=== PATIENT | female | born 1950 | race Hispanic/Latino ===

== ENCOUNTER 2019-08-01 14:23 | Emergency (ER) | payer OTHER ==
[2019-08-01] MEDS ORDERED: HYDROCODONE/APAP 5/325 MG TAB ONE (14:51)
[2019-08-01] MEDS ORDERED: DIAZEPAM 2 MG TABLET ONE (14:51)
[2019-08-01 15:17] LABS: Urine Blood NEGATIVE (NEG); Urine Glucose NEGATIVE (NEG); Urine Protein NEGATIVE (NEG); Urine Specific Gravity 1.015 (1.005-1.030); Urine pH 7.5 (5.0-7.0)
[2019-08-01 15:40] LABS: Urine Bacteria <20 /HPF (<20); Urine RBC <5 /HPF (NONE SEEN)
[2019-08-01 15:41] LABS: Urine Culture Reflex Order NOT NEEDED
--- NOTE | 2019-08-01 15:54 | EDPHYS ---
Physician Documentation [facility] Name: Génesis Mota Age: 68 yrs Sex: Female : 1950 Arrival Date: 08/01/2019 Time: 14:24 Bed 19 Private MD: ED Physician Dada Ngo HPI: 08/01 14:56 This 68 yrs old Female presents to ER via Wheelchair with complaints of Back snw Pain. 14:56 The patient presents with pain that is acute, with no known mechanism of injury. The snw symptoms are located in the low back. Onset: The symptoms/episode began/occurred suddenly, last night. The pain does not radiate. Associated signs and symptoms: Pertinent positives: dysuria. The problem was sustained from unknown cause. Modifying factors: The patient symptoms are alleviated by remaining still, the patient symptoms are aggravated by any movement. Severity of symptoms: At their worst the symptoms were moderate. The patient has not experienced similar symptoms in the past. It is unknown whether or not the patient has recently seen a physician. Historical: - Allergies: 14:29 No Known Allergies; ch - Home Meds: 14:29 None [Active]; ch - PMHx: 14:29 None; ch - PSHx: 14:29 Hysterectomy; bladder reconstruction; ch - Immunization history:: Adult Immunizations up to date. - Social history:: Smoking status: Patient/guardian denies using tobacco. - Ebola Screening: : Patient negative for fever greater than or equal to 101.5 degrees Fahrenheit, and additional compatible Ebola Virus Disease symptoms Patient denies exposure to infectious person Patient denies travel to an Ebola-affected area in the 21 days before illness onset No symptoms or risks identified at this time. ROS: 14:55 Constitutional: Negative for fever, chills, and weight loss, Eyes: Negative for injury, snw pain, redness, and discharge, ENT: Negative for injury, pain, and discharge, Neck: Negative for injury, pain, and swelling, Cardiovascular: Negative for chest pain, palpitations, and edema, Respiratory: Negative for shortness of breath, cough, wheezing, and pleuritic chest pain, Abdomen/GI: Negative for abdominal pain, nausea, vomiting, diarrhea, and constipation, : Negative for injury, bleeding, discharge, and swelling, MS/Extremity: Negative for injury and deformity, Skin: Negative for injury, rash, and discoloration, Neuro: Negative for headache, weakness, numbness, tingling, and seizure, Psych: Negative for depression, anxiety, suicide ideation, homicidal ideation, and hallucinations. 14:55 Back: Positive for decreased range of motion, pain with movement, of the low back area. Exam: 14:55 Constitutional: This is a well developed, well nourished patient who is awake, alert, snw and in no acute distress. Head/Face: Normocephalic, atraumatic. Eyes: Pupils equal round and reactive to light, extra-ocular motions intact. Lids and lashes normal. Conjunctiva and sclera are non-icteric and not injected. Cornea within normal limits. Periorbital areas with no swelling, redness, or edema. ENT: Nares patent. No nasal discharge, no septal abnormalities noted. Tympanic membranes are normal and external auditory canals are clear. Oropharynx with no redness, swelling, or masses, exudates, or evidence of obstruction, uvula midline. Mucous membranes moist. Neck: Trachea midline, no thyromegaly or masses palpated, and no cervical lymphadenopathy. Supple, full range of motion without nuchal rigidity, or vertebral point tenderness. No Meningismus. Chest/axilla: Normal chest wall appearance and motion. Nontender with no deformity. No lesions are appreciated. 14:55 Respiratory: Lungs have equal breath sounds bilaterally, clear to auscultation and percussion. No rales, rhonchi or wheezes noted. No increased work of breathing, no retractions or nasal flaring. Abdomen/GI: Soft, non-tender, with normal bowel sounds. No distension or tympany. No guarding or rebound. No evidence of tenderness throughout. Back: No spinal tenderness. No costovertebral tenderness. Full range of motion. Skin: Warm, dry with normal turgor. Normal color with no rashes, no lesions, and no evidence of cellulitis. MS/ Extremity: Pulses equal, no cyanosis. Neurovascular intact. Full, normal range of motion. Neuro: Awake and alert, GCS 15, oriented to person, place, time, and situation. Cranial nerves II-XII grossly intact. Motor strength 5/5 in all extremities. Sensory grossly intact. Cerebellar exam normal. Normal gait. Psych: Awake, alert, with orientation to person, place and time. Behavior, mood, and affect are within normal limits. 14:55 Cardiovascular: Rate: bradycardic. Vital Signs: 14:29 BP 90 / 54; Pulse 54; Resp 14; Temp 98.2; Pulse Ox 99% on R/A; Weight 59.87 kg; Height 5 ft. 1 in. (154.94 cm); Pain 9/10; 15:47 BP 101 / 71; Pulse 51; Resp 16; Pulse Ox 96% ; sv 14:29 Body Mass Index 24.94 (59.87 kg, 154.94 cm) MDM: 14:40 Patient medically screened. snw 08/01 14:34 Order name: Urine Culture snw 08/01 14:34 Order name: Urine Microscopic Only; Complete Time: 15:49 snw 08/01 14:34 Order name: Urine Dipstick-Ancillary (obtain specimen); Complete Time: 14:50 snw 08/01 14:44 Order name: Urine Dipstick--Ancillary (enter results) gm Administered Medications: 14:55 Drug: Bard 5 mg-325 mg 1 tabs {Note: RASS0.} Route: PO; sv 15:48 Follow up: Response: No adverse reaction; Pain is decreased; RASS: Alert and Calm (0) sv 16:03 Not Given (Physician Discretion): Valium 2 mg PO once sv Disposition: 17:21 Co-signature as Attending Physician, Dada Ngo MD. Disposition: 08/01/19 15:52 Discharged to Home. Impression: Low back pain. - Condition is Stable. - Discharge Instructions: Back Pain, Adult, Musculoskeletal Pain, Back Exercises, [id number], Cryotherapy, Heat Therapy. - Prescriptions for orphenadrine citrate 100 mg Oral Tablet Sustained Release - take 1 tablet by ORAL route 2 times per day As needed; 20 tablet. - Medication Reconciliation Form, Thank You Letter, Antibiotic Education, Prescription Opioid Use form. - Follow up: Private Physician; When: 1 - 2 days; Reason: Recheck today's complaints, Continuance of care, Re-evaluation by your physician. Follow up: Emergency Department; When: As needed; Reason: Worsening of condition. Signatures: Dispatcher [employer] EDKirsty Smith RN RN Ernestina Fam RN RN Zunilda Paul, POSITIVE PRINTER OPERATOR-C POSITIVE PRINTER OPERATOR-Csnw Dada Ngo MD MD gs Corrections: (The following items were deleted from the chart) 14:55 14:34 Barnes ordered. snw sv 16:04 15:52 08/01/2019 15:52 Discharged to Home. Impression: Low back pain. Condition is sv Stable. Forms are Medication Reconciliation Form, Thank You Letter, Antibiotic Education, Prescription Opioid Use. Follow up: Private Physician; When: 1 - 2 days; Reason: Recheck today's complaints, Continuance of care, Re-evaluation by your physician. Follow up: Emergency Department; When: As needed; Reason: Worsening of condition. snw
--- NOTE | 2019-08-01 15:54 | ER ---
Nurse's Notes [facility] Name: Génesis Mota Age: 68 yrs Sex: Female : 1950 Arrival Date: 08/01/2019 Time: 14:24 Bed 19 Private MD: Diagnosis: Low back pain Presentation: 08/01 14:28 Presenting complaint: Child states: back pain since yesterday, blood in urine. [place]olan speaking only.. Transition of care: patient was not received from another setting of care. Onset of symptoms was July 31, 2019 at 10:00. Risk Assessment: Do you want to hurt yourself or someone else? Patient reports no desire to harm self or others. Initial Sepsis Screen: Does the patient meet any 2 criteria? No. Patient's initial sepsis screen is negative. Does the patient have a suspected source of infection? No. Patient's initial sepsis screen is negative. Care prior to arrival: None. 14:28 Method Of Arrival: Wheelchair 14:28 Acuity: LOU 3 Triage Assessment: 14:29 General: Appears in no apparent distress. uncomfortable, Behavior is cooperative. Pain: Complains of pain in low back area Pain currently is 9 out of 10 on a pain scale. Historical: - Allergies: 14:29 No Known Allergies; - Home Meds: 14:29 None [Active]; ch - PMHx: 14:29 None; ch - PSHx: 14:29 Hysterectomy; bladder reconstruction; ch - Immunization history:: Adult Immunizations up to date. - Social history:: Smoking status: Patient/guardian denies using tobacco. - Ebola Screening: : Patient negative for fever greater than or equal to 101.5 degrees Fahrenheit, and additional compatible Ebola Virus Disease symptoms Patient denies exposure to infectious person Patient denies travel to an Ebola-affected area in the 21 days before illness onset No symptoms or risks identified at this time. Screenin:35 Abuse screen: Denies threats or abuse. Denies injuries from another. Nutritional sv screening: No deficits noted. Tuberculosis screening: No symptoms or risk factors identified. Fall Risk None identified. Assessment: 14:45 General: Appears in no apparent distress. uncomfortable, well developed, Behavior is sv calm, cooperative, appropriate for age. Pain: Complains of pain in left low back Pain currently is 9 out of 10 on a pain scale. Neuro: Level of Consciousness is awake, alert, obeys commands, Oriented to person, place, time, situation, Gait is steady. Respiratory: Respiratory effort is even, unlabored, Respiratory pattern is regular, symmetrical. Derm: Skin is pink, warm \T\ dry. 16:04 Reassessment: Patient appears in no apparent distress at this time. Patient and/or sv family updated on plan of care and expected duration. Pain level reassessed. Patient is alert, oriented x 3, equal unlabored respirations, skin warm/dry/pink. Patient denies pain at this time. Patient states feeling better. Patient states symptoms have improved. Vital Signs: 14:29 BP 90 / 54; Pulse 54; Resp 14; Temp 98.2; Pulse Ox 99% on R/A; Weight 59.87 kg; Height ch 5 ft. 1 in. (154.94 cm); Pain 9/10; 15:47 BP 101 / 71; Pulse 51; Resp 16; Pulse Ox 96% ; sv 14:29 Body Mass Index 24.94 (59.87 kg, 154.94 cm) ED Course: 14:24 Patient arrived in ED. as 14:28 Triage completed. ch 14:29 Arm band placed on left wrist. Patient placed in an exam room, on a stretcher. ch 14:33 Ernestina Fam, PAMELA is Primary Nurse. sv 14:33 Zunilda Paul FNP-C is PHCP. snw 14:33 Dada Ngo MD is Attending Physician. snw 14:35 Patient has correct armband on for positive identification. sv 14:55 Awaiting lab results. sv 16:03 No provider procedures requiring assistance completed. Patient did not have IV access sv during this emergency room visit. Administered Medications: 14:55 Drug: [place] 5 mg-325 mg 1 tabs {Note: RASS0.} Route: PO; sv 15:48 Follow up: Response: No adverse reaction; Pain is decreased; RASS: Alert and Calm (0) sv 16:03 Not Given (Physician Discretion): Valium 2 mg PO once sv Outcome: 15:52 Discharge ordered by . snw 16:03 Discharged to home ambulatory, with family. sv 16:03 Condition: stable 16:03 Discharge instructions given to patient, Instructed on discharge instructions, follow up and referral plans. medication usage, Demonstrated understanding of instructions, follow-up care, medications, Prescriptions given X 1. 16:04 Patient left the ED. sv Signatures: Kirsty Clay, RN RN Ernestina Friedman RN RN Zunilda Ramos, PROPERTY PORTFOLIO OFFICER-C PROPERTY PORTFOLIO OFFICER-Csnw Francine Rushing as
[2019-08-01 17:19] VITALS: TEMP 98.2
[2019-08-01 17:20] VITALS: BP 101/71; O2SAT 96
== END 2019-08-01 16:04 | disposition home or self-care (01) ==
LOC: ER 14:23
DX: M54.5 Low back pain (principal)
CPT/HCPCS: 81003; 81015; 87086; 87088; 99283

== ENCOUNTER 2020-04-17 08:45 | Day surgery (SDC) | payer OTHER ==
[2020-04-16 15:42] LABS: Absolute Lymphocytes (CBC) 1.4 K/uL (0.7-4.9); Basophils % 0.8 % (0-1.3); Hematocrit 42.3 % (36.0-45.0); Lymphocytes % 24.4 % (15.3-44.8); MPV 7.4 fL (7.6-11.3); RBC Red Blood Cell Count 4.41 M/uL (3.86-4.86)
--- NOTE | 2020-04-16 15:59 | RAD REPORT ---
EXAM DESCRIPTION: RAD - Chest Pa And Lat (2 Views) - 04/16/2020 3:26 pm CLINICAL HISTORY: preop, pending right hand surgery for soft tissue infection COMPARISON: Portable March 2015 TECHNIQUE: Frontal and lateral views of the chest were obtained. FINDINGS: The lungs are clear of failure, infiltrate or mass. Interstitial pattern matches compariso n. Posterior right diaphragmatic hernia seen slightly enlarged from 2015. Heart size is normal and c entral vasculature is within normal limits. No pleural effusion or pneumothorax seen. No acute bony finding noted. No aortic abnormality. IMPRESSION: No acute cardiopulmonary process. Patient has known posterior right diaphragmatic hernia has enlarged slightly.
[2020-04-16 16:02] LABS: Potassium 4.6 mmol/L (3.5-5.1)
--- NOTE | 2020-04-17 06:49 | EKG ---
Test Date: 2020-04-16 Test Time: 15:08:55 [employer] C[employer] Manager: CAMILO MEASUREMENT RESULTS: Intervals: Rate: 48 WI: 114 QRSD: 72 QT: 452 QTc: 403 [place]: P: -23 WI: 114 QRS: 33 T: 30 INTERPRETIVE STATEMENTS: Sinus bradycardia Otherwise normal ECG Compared to ECG 03/29/2015 18:59:56 No significant changes Electronically Signed On 04-17-20 06:48:00 CDT by Nikhil Addison
[2020-04-17] MEDS ORDERED: Ringers Lactate 1,000 ML IV ONE (09:00)
[2020-04-17] MEDS: CEFAZOLIN/SWI 1gm 1 GM/10 ML SYR ONE ×3 (09:30→10:36)
--- OUTSIDE RECORDS SUMMARY | 2020-04-17 09:43 | XMS REPORT | Continuity of Care Document ---
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 conditions.<b r/>
Patie nts with extremes in muscle mass or diet.

The data above are obtained from the National Kid[employer] Disease Education Program (NKDEP) which additionally recommends that when the eGFR is used in patients with extremes of body mass index for purposes of drug dosing, the eGFR should be multiplied by the estimated BMI. CHEM PANEL AGAP 9.7 10.0 - 08 [place] 20.0 [facility] CHEM PANEL Magnesium Lvl 2.3 1.8 - 2.4 05/31 [facility] CHEM PANEL Phosphorus 3.5 2.5 - 4.5 05/31 [facility] HEMATOLOGY Eosinophils # 0.6 0.0 - 0.5 05/31 [facility] HEMATOLOGY Eosinophils 8.7 0.0 - 4.0 08 [facility] HEMATOLOGY Lymphocytes 17.7 20.0 - 08 [place] 40.0 [facility] HEMATOLOGY Segs 65.0 45.0 - 08/ [place] 75.0 [facility] HEMATOLOGY Monocytes 8.4 2.0 - 12.0 05/31 [facility] HEMATOLOGY Lymphocytes # 1.1 1.0 - 5.5 05/31 [facility] HEMATOLOGY Segs-Bands # 4.2 1.5 - 8.1 05/31 [facility] HEMATOLOGY Basophils 0.2 0.0 - 1.0 08 [facility] HEMATOLOGY Monocytes # 0.5 0.0 - 0.8 05/31 [facility] HEMATOLOGY RDW 14.5 11.5 - 08/ 14.5 [facility] HEMATOLOGY MCHC 34.1 32.0 - 08/09 [place] 36.0 [facility] HEMATOLOGY Hct 27.8 36.0 - 08/09 [place] 48.0 /2015 [facility] HEMATOLOGY MCH 31.7 27.0 - 08/09 [place] 31.0 [facility] HEMATOLOGY MCV 93.1 80.0 - 08/09 [facility] 98.0 /2015 [facility] HEMATOLOGY Platelet 410 133 - 450 08/ /2015 [facility] HEMATOLOGY MPV 6.9 7.4 - 10.4 08/ /2015 [facility] HEMATOLOGY RBC 2.99 4.20 - 08/09 [place] 5.40 /2015 [facility] HEMATOLOGY Hgb 9.5 12.0 - 08/09 [place] 16.0 /2015 [facility] HEMATOLOGY WBC 6.5 3.7 - 10.4 08/ [facility] PARATHYROID Ca Ion WB 1.13 1.05 - 08 [place] PROFILE 1. [facility] PARATHYROID Ca Norm WB 1.10 1.05 - 05/30 [place] PROFILE 1. [facility] PARATHYROID Ca Ion WB 1.04 1.05 - 05/26 [place] PROFILE 11.16 [facility] PARATHYROID Ca Norm WB 1.05 1.05 - 05/26 [facility] PROFILE 11.16 [facility] BLOOD BANK ABO/Rh O POS 05/25 [facility] RESULTS [facility] BLOOD BANK Antibody Scrn Negative 05/25 [facility] as RESULTS (05/25/16 4:39 PM) [facility] HEMATOLOGY PTT 29.5 22.9 - 08 [place] 35.8 /2015 [facility] HEMATOLOGY PT 13.6 12.0 - 08 [place] 14.7 /2015 [facility] HEMATOLOGY INR 1.01 0.85 - 08 [place] 1. [facility] PARATHYROID Ca Ion WB 1.07 1.05 - 05/25 [place] PROFILE 11.16 [facility] PARATHYROID Ca Norm WB 1.07 1.05 - 05/25 [place] PROFILE 11.16 [facility] DRUG SCREEN U Mehnaz Scr Negative Negative 05[place]23 [place] *[place]* /2015 [facility] (05/22/16 9:00 PM) Center DRUG SCREEN U Amph [place]r Negative Negative 05[place] *NA* [facility] (05/22/16 9:00 PM) Center DRUG SCREEN [place] Opiate [place]r Positive Negative 05/23 [place] *ABN* [facility] (05/22/16 9:00 PM) Center DRUG SCREEN U Cannab [place] Negative Negative 05/23 [place] *NA[place] [facility] (05/22/16 9:00 PM) Center DRUG SCREEN U Cocaine Scr Negative Negative 05/23 [place] *NA* [facility] (05/22/16 9:00 PM) Center DRUG SCREEN U Benzodia Negative Negative [place]/23 [place] *NA [facility] (05/22/16 9:00 PM) Center DRUG SCREEN U Phencyc Scr Negative Negative 05/23 [place] *NA* [facility] (05/22/16 9:00 PM) Center DRUG SCREEN UDS Note See Note 05/23 [facility] (05/22/16 9:00 PM) [facility] URINE AND UA <=1.0 0.1 - 1.0 05/23 [facility] Urobilinogen mg/dL /2015 [facility] URINE AND UA Bacteria Occasional None Seen 05/23 [place] /HPF /HPF /2015 [facility] URINE AND UA WBC 7 0 - 5 05/23 [facility] URINE AND UA Leuk Est Large Negative 05/23 [facility] *ABN* [facility] (05/22/16 9:00 PM) [place] URINE AND UA Nitrite Negative Negative 05/23 [facility] (05/22/16 9:00 PM) [facility] URINE AND UA Mucus Few /LPF None Seen 05/23 [facility] STOOL /LPF /2015 [facility] URINE AND UA Sq Epi None Seen 05/23 [facility] URINE AND UA Bili Negative Negative 05/23 [facility] *NA* [facility] (05/22/16 9:00 PM) [place] URINE AND UA Ketones Negative Negative 05/23 [facility] mg/dL mg/dL [facility] URINE AND UA Protein Negative Negative 05/23 [facility] mg/dL mg/dL [facility] URINE AND UA Glucose Negative Negative 05/23 [facility] mg/dL mg/dL [facility] URINE AND UA Turbidity Clear Clear 05/23 [facility] (05/22/16 9:00 PM) [facility] URINE AND UA Color Light Yellow Yellow 05/23 [facility] STOOL *NA* [facility] (05/22/16 9:00 PM) [place] URINE AND UA Blood Negative Negative 05/23 [facility] (05/22/16 9:00 PM) [facility] URINE AND UA Spec Grav 1.013 <=1.030 05/23 [facility] 2016 [facility] Center URINE AND UA pH 8.0 5.0 - 8.0 05/23 [place] STOOL /2015 [facility] Center CARDIAC CK MB 15.1 0.5 - 3.6 05/22 [place] ENZYMES /2015 [facility] Center CARDIAC CK MB Index 0.6 0.0 - 2.5 05/22 [place] ENZYMES /2015 [facility] Center CARDIAC Total CK 2667 - 05/22 [place] ENZYMES /2015 [facility] CARDIAC Troponin-T <0.010 0.000 - 05/22 [place] ENZYMES 0.100 [facility] Center CARDIAC Troponin-I <0.02 0.00 - 05/22 [place] ENZYMES 0.40 [facility] Center CARDIAC CK MB Index 0.8 0.0 - 2.5 05/22 [place] ENZYMES /2015 [facility] Center CARDIAC CK MB 21.5 0.5 - 3.6 05/22 [place] ENZYMES /2015 Medical Center CARDIAC Troponin-T <0.010 0.000 - 05/22 [place] ENZYMES 0.100 [facility] [place] 2657 05/22 [place] ENZYMES /2015 [facility] Center CARDIAC Troponin-I <0.02 0.00 - 05/22 [place] ENZYMES 0.40 [facility] Center CHEM PANEL Lactic Acid 1.0 0.5 - 2.2 05/22 [place] L[place] /2015 [facility] Center HEMATOLOGY PTT 28.6 22.9 - 05/22 [place] 35.8 /2015 [facility] HEMATOLOGY INR 1.05 0.85 - 05/22 [place] 1. [facility] HEMATOLOGY PT 14.0 12.0 - 05/22 [place] 14. [facility] BLOOD BANK Antibody Scrn Negative 05/21 [place] RESULTS (05/21/16 5:15 PM) /2015 [facility] BLOOD BANK ABO/Rh O POS 05/21 [place] RESULTS /2015 [facility] Center CARDIAC Troponin-I <0.02 0.00 - 05/21 [place] ENZYMES 0.40 [facility] CHEM PANEL Lactic Acid 2.4 0.5 - 2.2 05/21 [place] L[place] /2015 [facility] HEMATOLOGY PT 13.0 12.0 - 05/21 [place] 14.7 /2015 [facility] HEMATOLOGY INR 0.95 0.85 - 05/21 [place] 1.17 [facility] [place] HEMATOLOGY PTT 25.3 22.9 - 05/21 [facility] 35.8 [facility] TOXICOLOGY Ethanol Lvl <3 05/21 [facility] TOXICOLOGY Etoh (%) <0.003 05/21 [facility] HEMATOLOGY Estimated % 1.7 0.0 - 7.5 05/[place] [facility] HEMATOLOGY Angle Rapid 77 64 - 80 05/21 [facility] HEMATOLOGY G-value Rapid 12.2 5.0 - 11.6 05/21 [place] [facility] HEMATOLOGY Max Amplitude 71 52 - 71 05/21 [place] [facility] HEMATOLOGY R-time Rapid 0.7 0.4 - 0.7 05/21 [place] [facility] HEMATOLOGY [place] 0.5 05/21 [facility] HEMATOLOGY ACT (TEG) 113 86 - 118 05/21 [facility] HEMATOLOGY K-time Rapid 0.9 0.6 - 2.3 05/21 [place] [facility] Pathology Reports No Data Provided for This Section Diagnostic Reports Report Value Date Source Spine lumbar 2 or 3 EXAM: XR LUMBAR SPINE 2 VIEWS 08/16/2016 HIEN RUIZ [facility] views DX DATE: 08/16/2016 at 1334 hours INDICATION: Compression frac ture of L1 lumbar vertebra with routine healing/Compression fracture of L3 lumbar vertebra COMPARISON: CT abdomen/pelvis of 05/21/2016 TECHNIQUE: AP and lateral radiographs of the lum bar spine FINDINGS: 5 lumbar type, non -rib bearing vertebral bodies are present. L1 and L3 vertebral body compression fractures are again identified, with approximately 15% anterior vertebral body height loss at both levels, with vertebral body heights slightly decreased from the prior CT examination. Intervertebral disc spaces a re overall preserved. Lower lumbar spine facet hypertrophy and multilevel interspinous narrowing are unchanged. Anterior coils are again identified at L5-S1. IMPRESSION: Slight interval decrease in height at the L1 and L3 compression fractures, with up to approximately 15% anterior vertebral body height loss. Hand 3 views DX EXAM: XR HAND 3 VIEWS 07/19/2016 JOSEPH Zavaleta rmann DATE: 07/19/2016 1:49 PM CDT INDICATION: 5th MC fx- LEFT hand COMPARISON: Left hand series 05/21/2016 TECHNIQUE: PA, lateral and oblique radiographs of the hand Laterality: Left FINDINGS: There is generaliz ed diminished bone mineral density. Satisfactory alignment of fifth metacarpal neck fracture post crossing K wire fixation. Minimal residual displacement of the fracture with minimal bridging bone forma tion. No hardware complication. Medial hand soft tissue swelling. IMPRESSION: Satisfactory alignment of sa dion fixated fifth metacarpal neck fracture with minimal bridging bone formation. Chest 1view DX EXAM: XR CHEST 1 VIEW 06/02/2016 [facility] DATE: 06/02/2016 Center INDICATION: Abnormal chest sounds . Comparison is made with yesterday FINDINGS: Cardiomediastinal silhouette and bilateral pleural effusions are unchanged. There are bilateral retrocardiac opacities obscuring the hemidiaphragms and silhouette of the descending thoracic ao rta which may represent bila teral pleural effusions with or without underlying atelectasis or consolidation of both lower lobes. .. The remaining lungs are clear. There is a nondisplaced fracture of the right an terior 1st rib. No pneumothorax is visualize d however a supine or semierect radiograph is suboptimal for that determination. An erect film of the chest is necessary in order to exclude small pneumothoraces. IMPRESSION: No significant interval change when compared to prior radiograph. Chest 1view DX EXAM: XR CHEST 1 VIEW 06/01/2016 [facility] DATE: 06/01/2016 3:00 AM CDT [facility] er INDICATION: Abnormal chest sounds COMPARISON: Chest radiograph 05/31/2016 TECHNIQUE: AP chest FINDINGS: Lines, tubes and hardware: None. Lungs and pleura: The costop hrenic sulci are obscured bilaterally with compression atelectasis of related lung segments. The upper lung zones are clear bilaterally. No pneumothorax is identified. Heart and mediastinum: The h eart size is normal for technique. The mediastinal contours are stable. Bones: No acute bony abnormality is identified. IMPRESSION: 1. Bilateral pleural effusio ns with compression atelectasis of the related lung segments, not significantly changed compared to prior study. Chest 1view DX EXAM: XR CHEST 1 VIEW 05/31/2016 [facility] DATE: 05/31/2016 Center INDICATION: Abnormal chest sounds . Comparison is made with yesterday FINDINGS: Cardiomediastinal silhouette is stable. There are bilateral pleural effusions. These effusions obscure the costophrenic sulci both diaphragms in both lower lobes. The remainder of the visualized lungs are clear IMPRESSION: No significant interval change when compared to prior radiograph. Chest 1view DX EXAM: XR CHEST 1 VIEW 05/30/2016 [facility] DATE: 05/30/2016 Center INDICATION: Abnormal chest sounds . Comparison is made with yesterday FINDINGS: Cardiomediastinal silhouette and bilateral pleural effusions are unchanged. There are bilateral retrocardiac opacities obscuring the hemidiaphragms and silhouette of the descending thoracic ao rta which may represent bila teral pleural effusions with or without underlying atelectasis or consolidation of both lower lobes. .. The upper lungs are clear IMPRESSION: No significant interval change when compared to prior radiograph. Chest 1view DX EXAM: XR CHEST 1 VIEW 05/29/2016 [facility] DATE: 05/29/2016 3:00 AM CDT Cente r INDICATION: Abnormal chest sounds. FINDINGS: Comparison is made to yesterday aftern oon. The cardiomediastinal silhou ette is stable. Bilateral pleural effusions obscure the lung bases, greater on the right with fluid layering posteriorly. There are bilateral retrocardiac opacities which may be due to layering pleural effusion and/or airspace opacities such as pneumonia or atelectasis. IMPRESSION: 1. Bilateral pleural effusio ns obscure the lung bases, greater on the right with fluid layering posteriorly. 2. There are bilateral retro cardiac opacities which may be due to layering pleural effusion and/or airspace opacities such as pneumonia or atelectasis. Chest 1view DX EXAM: XR CHEST 1 VIEW 05/28/2016 [facility] DATE: 05/28/2016 3:00 AM CDT Cente r INDICATION: Abnormal chest sounds. FINDINGS: Comparison is made to yesterday. The cardiomediastinal silhou ette is stable. Bilateral pleural effusions obscure the lung bases. There are bilateral retrocardiac opacities which may be due to layering pleural effusion and/or airspace opacities such as pneumonia or atelectasis. IMPRESSION: No significant change. Chest 1view DX EXAM: XR CHEST 1 VIEW 05/27/2016 [facility] DATE: 05/27/2016 3:00 AM CDT Cente r INDICATION: Abnormal chest sounds. FINDINGS: Comparison is made to 64. The cardiomediastinal silhou ette is stable. Bilateral pleural effusions obscure the lung bases with fluid layering posteriorly on the right. There are bilateral retrocardiac opacities which may be due t o layering pleural effusion and/or airspace opacities such as pneumonia or atelectasis. IMPRESSION: No significant change. Chest 1view DX EXAM: XR CHEST 1 VIEW 05/26/2016 [facility] DATE: 05/26/2016 Center INDICATION: Abnormal chest sounds . Comparison is made with yesterday FINDINGS: Cardiomediastinal silhouette is stable. Bilateral pleural effusions are unchanged. There are bilateral retrocardiac opacities obscuring the hemidiaphragms and silhouette of the descending thor acic aorta which may represe nt bilateral pleural effusions with or without underlying atelectasis or consolidation of both lower lobes. .. The upper lungs are clear No pneumothorax is visualize d however a supine or semierect radiograph is suboptimal for that determination. An erect film of the chest is necessary in order to exclude small pneumothoraces. IMPRESSION: No significant interval change when compared to prior radiograph. Chest 1view DX EXAM: XR CHEST 1 VIEW 05/25/2016 [facility] DATE: 05/25/2016 3:00 AM CDT Cente r INDICATION: Abnormal chest sounds. FINDINGS: Comparison is made to yesterday. The cardiomediastinal silhou ette is stable. Bilateral pleural effusions are the lung bases and layer posteriorly. There are bilateral retrocardiac opacities which may be due to layering pleural effusion and/or airspace opacities s uch as pneumonia or atelectasis. The upper lungs are clear. IMPRESSION: No significant change from yesterday morning. Chest 1view DX EXAM: XR CHEST 1 VIEW 05/24/2016 [facility] DATE: 05/24/2016 Center INDICATION: Abnormal chest sounds . Comparison is made with yesterday FINDINGS: Cardiomediastinal silhouette is stable. Bilateral pleural effusions are unchanged. There are bilateral retrocardiac opacities obscuring the hemidiaphragms and silhouette of the descending thor acic aorta which may represe nt bilateral pleural effusions with or without underlying atelectasis or consolidation of both lower lobes. .. The upper lungs are clear IMPRESSION: No significant interval change when compared to prior radiograph. Chest 1view DX EXAM: XR CHEST 1 VIEW 05/23/2016 [facility] DATE: 05/23/2016 7:10 AM CDT Cente r INDICATION: Abnormal chest sounds COMPARISON: 05/22/2016 FINDINGS: The cardiomediastinal silhou ette is stable. While evaluation is limited given semi-erect positioning, no distinct pneumothorax is identified. Opacities are present in the lung bases and retrocardiac reg ions partially obscuring the hemidiaphragms which could represent a combination of layering pleural fluid with or without associated atelectasis and/or pneumonia. IMPRESSION: Bibasilar pleural-parenchyma l opacities remain suggesting moderate pleural effusions with subsegmental atelectasis and/or pneumonia not excluded. Chest Pulmonary EXAM: CTA CHEST WITH CONTRAST 05/22/2016 [facility] [place] [facility]A DATE: 05/22/2016 12:[address] INDICATION: Arrhythmias COMPARISON: Chest CT dated 05/21/2016. TECHNIQUE: Volumetric CT acq uisition of the chest, during pulmonary arterial phase, after intravenous contrast. Axial, sagittal, coronal, and oblique MIP reconstructions are created at the acquisition workstation. IV Contrast: 76 mL of Omnipaque 350 DLP: 634 mGy-cm FINDINGS: Lines and tubes: None Lower neck: The visualized p ortion of the thyroid gland and lower neck are unremarkable. Heart and Mediastinum: Cardi othoracic ratio measures 11/22. Measurements and appearance of the thoracic aorta are normal. At the same level where the ascending aorta measures 2.9 cm the pulmonary trunk measures 2.3 cm. No coronary calcifications. Minimal aortic atherosclerotic disease. There is no pulmonary embolus. Pleura: Small bilateral pleu ral effusions. Small right pneumothorax which is decreased compared to prior study. Lymph Nodes: There is no hil ar, mediastinal, axillary or internal mammary lymphadenopathy. Lungs: Interval progression of the consolidative changes of both lower lobes showing heterogenous enhancement indicating the presence of atelectatic portion and consolidative changes which may be due to pneumonia or aspiration pne umonitis. Scattered atelectatic changes seen in both upper lobes. Trachea: Markedly diminished AP diameter of the trachea at the ad which may be due to tracheomalacia. Upper abdomen: The visualized portion of the upp er abdomen is unremarkable. Bones and soft tissues: Dege nerative changes of the thoracic spine. Healing fracture of the sternal body. IMPRESSION: 1. No pulmonary embolism. 2. Interval progression in t he consolidative changes seen in both lower lobes raising the possibility of pneumonia or aspiration pneumonitis superimposed on the previously noted atelectatic changes. 3. Interval decrease in the size of the right pn eumothorax. 4. Scattered atelectatic changes in both upper l obes. 5. Nondisplaced fracture of the sternal body aga in seen. RECOMMENDATIONS: None. Chest 1view DX EXAM: XR CHEST 1 VIEW 05/22/2016 [facility] DATE: 05/22/2016 9:21 AM CDT [facility] er INDICATION: Arrhythmias COMPARISON: 05/22/2016 at 0229 hours TECHNIQUE: AP chest IMPRESSION: 1. Redemonstration of the bi lateral lower lung zones consolidative/atelectatic changes with diminished lung volumes bilaterally may be due to infection or aspiration. 2. Diffuse haziness of both lungs which may be d ue to pulmonary edema. 3. Cardiac mediastinal silhouette is enlargement , unchanged. 4. No acute osseous abnormalities. Chest 1view DX EXAM: XR CHEST 1 VIEW 05/22/2016 [facility] DATE: 05/22/2016 3:00 AM CDT [facility] er INDICATION: Abnormal chest sounds COMPARISON: Chest radiograph 04/21/2016 TECHNIQUE: AP chest FINDINGS: Again noted are bilateral mi d and lower lung airspace opacities which are unchanged from the comparison. The right pneumothorax is better visualized on the comparison CT study and is not well appreciate d on this radiograph. Cardio mediastinal silhouette, bones and soft tissues are unchanged. IMPRESSION: No significant interval change. Patella 2 views DX EXAM: XR LEFT PATELLA 1 VIEW 05/21/2016 [facility] [facility] DATE: 05/21/2016 6:55 PM CDT [facility] er INDICATION: Fracture COMPARISON: X-ray left knee 3 views 05/21/2016 at 1650 hours TECHNIQUE: Lateral view of the patella FINDINGS: Again seen is a ho rizontal fracture of the left patella, with surrounding soft tissue swelling and lipohemarthrosis of the left knee. There is interval placement of immobilizer extending from the lower femur to the mid tibia. IMPRESSION: 1. Horizontal fracture of t he left patella with surrounding soft tissue swelling and lipohemarthrosis of the left knee. 2. Interval placement of an immobilizer. Chest 1view DX EXAM: XR CHEST 1 VIEW 05/21/2016 [facility] DATE: 05/21/2016 10:[address] INDICATION: Abnormal chest sounds COMPARISON: CT of the chest abdomen pelvis dated May 21, 2016 at 1635 hours TECHNIQUE: AP chest FINDINGS: There is hazy opac ity of the right lung base and right hilum, suggestive of pulmonary contusions and/or atelectasis. In addition there is a left retrocardiac opacity which opacifies the left h emidiaphragm and descending thoracic aorta, that may represent singly or in combination pleural effusion, atelectasis and or consolidation. There is blunting of the bilateral costophrenic sulci by pleur al effusions. No change in t he right small pneumothorax. The cardiac silhouette is within normal limits. No displaced rib fractures are seen. IMPRESSION: 1. Hazy opacity at the righ t lung base and right hilum, suggestive of contusions and/or atelectasis. 2. Left retrocardiac opacit y may represent singly or in combination pleural effusion, atelectasis and/or consolidation. 3. No change in the small right pneumothorax. 4. Small bilateral pleural effusions. Hand 3 views DX EXAM: XR RIGHT HAND 3 VIEWS 05/21/2016 [facility] DATE: 05/21/2016 at [address] INDICATION: Pain, Trauma COMPARISON: None TECHNIQUE: PA, lateral and oblique radiographs of the hand FINDINGS: No acute fracture or malalignment is identified. No soft tissue abnormality is identified. IMPRESSION: No acute abnormality. Knee series 3 views EXAM: XR LEFT KNEE 3 VIEWS 05/21/2016 [facility] DATE: 05/21/2016 4:15 PM CDT Cent er INDICATION: Pain and swelling COMPARISON: None. TECHNIQUE: 3 views of the knee FINDINGS: There is a transv erse fracture of the patella, with superior and inferior displacement of the superior and inferior fragments, respectively. A few bone fragments are identified surrounding th e the inferior fragment. There is a lipohemarthr osis of the left knee. The distal femur, proximal tibia and fibula are intact. IMPRESSION: Horizontal, comminuted fract ure of the left patella, with superior and inferior displacement of the superior and inferior fragments, respectively. Lipohemarthrosis the left knee. Hand 3 views DX EXAM: XR LEFT HAND 3 VIEWS 05/21/2016 [facility] DATE: 05/21/2016 4:14 PM CDT [facility] er INDICATION: Pain and swelling COMPARISON: TECHNIQUE: PA, lateral and oblique radiographs of the hand FINDINGS: There is a minimal ly displaced, transverse fracture through the distal diaphysis of the 5th metacarpal. The ulnar stylet process is well- corticated, but separate from the distal ulna, likely sequelae of prior, old fracture. There is mild soft tissue swelling of the hypoth enar eminence. IMPRESSION: 1. Minimally displaced, transverse fracture thr ough the 5th metacarpal neck. 2. Soft tissue swelling of the hypothenar emine nce. Chest 1view DX EXAM: XR CHEST 1 VIEW 05/21/2016 [facility] DATE: 05/21/2016 4:07 PM T [facility] er INDICATION: Chest pain COMPARISON: None TECHNIQUE: AP chest FINDINGS: Lines and tubes: None. Lungs and pleura: Lung volum es are low with crowding of bronchovascular markings, particularly inferiorly. There is a small linear gas collection above the right hemidiaphragm, likely representing a pne umothorax.No other pulmonary or pleural based ab normality is identified. Heart and mediastinum: Unremarkable. Chest wall: Unremarkable. Bones: No acute bony abnormality is identified. IMPRESSION: 1. Findings concerning for a small right pneumot horax. 2. Low lung volumes with crowding of bronchovasc ular markings. Findings image reviewed in person with Crow Cm and Curtis Cobian. Spine cervical wo EXAM: CT CERVICAL SPINE WITHOUT CONTRAST 05/21 [facility] contrast CT DATE: 05/21/2016 4:14 PM T [facility] er INDICATION: Pain Post Trauma COMPARISON: None TECHNIQUE: Volumetric CT ac quisition of the cervical spine without contrast. Axial, sagittal and coronal reconstructions. IV contrast: None. DLP: 434 mGy-cm FINDINGS: The spine is image d from the skull base to the level of T3. Cervical spine alignment and vertebral body heights are maintained. No acute fracture or malalig nment is identified. No soft tissue abnormality is identified. Nondisplaced fracture of the right first rib, wi th small apical pneumothorax. IMPRESSION: 1. No acute abnormality of the cervical spine. 2. Nondisplaced right 1st rib fracture with sma ll right apical pneumothorax. Findings were conveyed to an d acknowledged by Dr. Cm over the phone on 05/21/2016 at 1700 hours. Chest/Abdomen/Pelvis EXAM: CT CHEST WITH CONTRAST 05/21/2016 [facility] IV contrast CT EXAM: CT ABDOMEN AND PELVIS WITH CONTRAST Center DATE: 05/21/2016 4:14 PM CDT INDICATION: Pain Post Trauma COMPARISON: None. TECHNIQUE: Volumetric acquis ition of the chest, abdomen and pelvis following intravenous administration of contrast. Delayed imaging was then performed through the abdomen and pelvis, using a radiation reduction technique. Axial, coronal and sagittal reformats. IV contrast: 100 mL of Visipaque 320 Oral contrast: None. DLP: 1260.91, 873.07 and 396 .14 mGy-cm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
[2020-04-17] MEDS ORDERED: propofoL 200 MG/20 ML VIAL IV ONE (10:04)
[2020-04-17] MEDS ORDERED: FENTANYL CITR 100 MCG/2 ML ONE (10:04)
[2020-04-17] MEDS ORDERED: KETOROLAC 30 MG/ML INJ ONE (10:04)
[2020-04-17] MEDS ORDERED: LIDOCAINE 2% MPF 5 ML VIAL ONE (10:04)
[2020-04-17] MEDS ORDERED: MIDAZOLAM HCL 2 MG/2 ML INJ ONE (10:04)
[2020-04-17] MEDS ORDERED: EPHEDRINE SULF 50 MG/ML VIAL ONE (10:44)
[2020-04-17] MEDS ORDERED: ONDANSETRON 4 MG/2 ML VIAL ONE (11:26)
[2020-04-17 11:34] VITALS: O2SAT 99
[2020-04-17 11:45] VITALS: TEMP 97.3
[2020-04-17 12:37] VITALS: BP 130/79
--- NOTE | 2020-04-17 22:46 | OP ---
Date of Procedure: 04/17/2020 Surgeon: Garfield Edwards MD Preoperative Diagnosis: Nonhealing wound, right hand palmar side. Postoperative Diagnosis: Nonhealing wound, right hand palmar side. Procedure: Excisional debridement, right hand 3 x 2 cm to full thickness with application of TheraSk in graft. Estimated Blood Loss: Minimal. Specimen: Debridement tissue. Findings: As above. Anesthesia: General. Complications: None. Disposition: Patient tolerated the procedure in stable condition and taken to recovery in good gener al condition. Description Of Procedure: Patient was brought to the OR and placed in supine position. General anes thesia was begun. Then, patient was prepped and draped in usual sterile fashion. Marcaine 0.5% was infiltrated locally and a 15-blade was used to excise the hypertrophic wound all the way down ___ full thickness, part of it was in the subcutaneous tissue and the debrided tissue was sent to [facility]. The wound was irrigated and bleeding was controlled with cautery. Then TheraSkin cut to gretchen ropriate size and placed over the wound 2 x 3 cm and then secured with 3-0 chromic interrupted suture s around the edges and then Mepitel, hydrogel and foam placed over the wound and sterile dressing gretchen lied. Patient was awakened and taken to Recovery in good general condition. Discharge Note: Patient will go to day surgery and home when stable. Disposition: Home. Condition: Stable. Discharge Instructions: Resume home medications and diet. Activity as tolerated. No heavy lifting. Keep dressing clean and dry. Do not change dressing. [facility] [place]. Call for appointment. Tylenol No.3 one tablet p.o. q.4 p.r.n. pain. /MODL Voice ID: [id number] Report ID: [id number]
== END 2020-04-17 12:45 | disposition home or self-care (01) ==
LOC: OR 08:45
PROVIDERS: ATTEND Surgery
PROC: 0HR Skin and Breast, Replacement (ICD-10-PCS; principal; 2020-04-17 10:00)
DX: I96 Gangrene, not elsewhere classified (principal); L98.492 Non-pressure chronic ulcer of skin of other sites with fat layer exposed; L03.113 Cellulitis of right upper limb; Z11.59 Encounter for screening for other viral diseases; J98.4 Other disorders of lung; K44.9 Diaphragmatic hernia without obstruction or gangrene; R00.1 Bradycardia, unspecified
CPT/HCPCS: 15275; 93005; 85025; 80048; 36415; 88312; 88305; 71046; U0002; J2704; J2250; J3010; J0690; J7120; J2405; Q4121

== ENCOUNTER 2021-03-28 00:05 | Emergency (ER) | payer OTHER ==
--- OUTSIDE RECORDS SUMMARY | 2021-03-28 00:11 | XMS REPORT | Continuity of Care Document ---
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 13:30:00 23:59:00 Christopher 1.018970. [id number] 12 Karin 3.615.62 5.62 2018-01-26 2018-02-24 Outpatient Gackle, 2.16.840. 2.16.840. 1. [id number] 10:30:00 23:59:00 Christopher [id number]. [id number] 11 Karin 3.615.62 5.62 2017-11-27 2017-12-26 Outpatient Gackle, 2.16.840. 2.16.840. 1. [id number] 13:53:00 23:59:00 Christopher [id number]. [id number] 10 Karin 3.615.62 5.62 2017-11-27 2017-12-26 Outpatient Gackle, 2.16.840. 2.16.840. 1. [id number] 13:53:00 23:59:00 Christopher 1.204988. [id number] 10 Karin 3.615.62 5.62 2017-10-26 2017-11-24 Outpatient Gackle, 2.16.840. 2.16.840. 1. [id number] 11:00:00 23:59:00 Christopher 1.227537. [id number] 09 Karin 3.615.62 5.62 2017-09-21 2017-10-20 Outpatient Gackle, 2.16.840. 2.16.840. 1. [id number] 11:00:00 23:59:00 Christopher 1.199320. [id number] 08 Karin 3.615.62 5.62 2017-08-22 2017-09-20 Outpatient Gackle, 2.16.840. 2.16.840. 1. [id number] 11:00:00 23:59:00 Christopher [id number]. [id number] 07 Karin 3.615.62 5.62 2017-05-03 2017-08-22 [place]patient [place] [id number] 08:00:00 23:59:00 Christopher 03 Karin 2017-08-17 2017-08-17 [place]patient [place] [id number] 06:00:00 23:59:00 Christopher 01 Karin 2017-04-03 2017-05-02 [place] [id number] 13:55:00 23:59:00 Christopher 02 Karin 2017-03-06 2017-04-04 Outpatient Jarrell 2.16.840. 2.16.840. 1. [id number] 08:00:00 23:59:00 Sylvia archuleta 1.773866. [id number] 06 3.615.51 5.51 2017-03-02 2017-03-31 [facility] [id number] 13:00:00 23:59:00 Christopher 01 Karin 2017-02-01 2017-03-02 Outpatient Jarrell 2.16.840. 2.16.840. 1. [id number] 08:00:00 23:59:00 Sylvia archuleta 1.307777. [id number] 05 3.615.51 5.51 2017-01-30 2017-02-28 Outpatient [place] [id number] 12:58:00 23:59:00 Christopher 00 Karin 2017-01-02 2017-01-31 Outpatient Juan, 2.16.840. 2.16.840. 1. [id number] 07:56:00 23:59:00 Christopher [id number]. [id number] 04 Karin 3.615.51 5.51 2016-12-01 2016-12-30 Outpatient Juan, 2.16.840. 2.16.840. 1. [id number] 10:50:00 23:59:00 Christopher 1.163493. [id number] 03 Karin 3.615.51 5.51 2016-10-27 2016-11-25 Outpatient Juan, 2.16.840. 2.16.840. 1. [id number] 13:45:00 23:59:00 Benja Yamini069445. 452199.3.61 02 Karin 3.615.51 5.51 2016-08-16 2016-08-16 [facility] [id number] 13:21:00 23:59:00 Geronimo 01 Drew 2016-07-19 2016-07-19 [facility] [id number] 13:39:00 23:59:00 Colter 00 Karin 2016-05-21 2016-06-02 Outpatient Alan [facility] [id number] 15:44:00 18:00:00 Victorina 00 Anabell Results Test Description Test Time Test Comments Results Result Comments Source UA RFLX MICR CULT IF INDICATED 2021-03-25 16:22:00 Test Item Value Reference Range Interpretation Comme nts UA COLOR (test code = COLU) YELLOW DISCRIPT YELLOW UA APPEARANCE (test code = APPU) CLEAR DISCRIPT CLEAR UA GLUCOSE DIPSTICK (test code = DGLUU) NEGATIVE mg/dL NEGATIVE UA BILIRUBIN DIPSTICK (test code = BILU) NEGATIVE NEGATIVE UA KETONE DIPSTICK (test code = KETU) TRACE mg/dL NEGATIVE A UA SPECIFIC GRAVITY (test code = SGU) 1.015 1.005-1.030 UA BLOOD DIPSTICK (test code = DERREK) NEGATIVE NEGATIVE UA PH DIPSTICK (test code = WILDER) 7.0 5.0-9.0 UA PROTEIN DIPSTICK (test code = PROU) NEGATIVE mg/dL NEGATIVE UA UROBILINOGEN DIPSTICK (test code = URO) 0.2 mg/dL 0.2-1.0 UA NITRITE DIPSTICK (test code = ROBERT) NEGATIVE NEGATIVE UA LEUKOCYTE ESTERASE DIPSTICK (test code = LEUU) SMALL NEGA TIVE A UA WBC (test code = WBCU) 3-5 #WBC/HPF 0-2 A UA RBC (test code = RBCU) 0-2 #RBC/HPF 0-2 UA BACTERIA (test code = BACU) 1+ /HPF NONE-TRACE A UA SQUAMOUS CELLS (test code = SQU) OCCASIONAL /LPF NONE-TRACE UA COARSE GRANULAR CAST (test code = CGU) 0-2 /LPF NONE SEEN A Indication for culture: Dysuria/FrequencyBASIC METABOLIC [id number] 16:20:00 Test Item Value Reference Range Interpretation Comments SODIUM (test code = 140 mmol/L 136-145 N Please n ote: New NA) Reference Range Nov 2020 POTASSIUM (test code = 3.7 mmol/L 3.5-5.1 N K) CHLORIDE (test code = 103 mmol/L 98-107 N Please note: New CL) Reference Range Nov 2020 CARBON DIOXIDE (test 29 mmol/L 20-31 N Please note: New code = CO2) Reference Range Nov 2020 GLUCOSE (test code = mg/dL 74-106 GLU) BLOOD UREA NITROGEN mg/dL 9-23 (test code = BUN) GLOMERULAR FILTRATION >60 RATE (test code = GFR) CREATININE (test code mg/dL 0.55-1.02 = CREAT) CALCIUM (test code = mg/dL 8.7-10.4 CA) PROTHROMBIN [id number] 16:20:00 Test Item Value Reference Range Interpretation Comments PROTHROMBIN TIME 11.2 SECONDS 10.3-12.9 N PATIENT (test code = PTP) INTERNATIONAL 0.99 INR UNIT 0.9-1.11 N The INR is us eful only NORMAL RATIO (test for monit oring code = INR) anticoagulant therapy.It may be unreliable in t he initial phase o f antigoagulation and in unstable patien ts. Indication for Anticoagulation Recommend ed INR 1. Prevention o f venous thomboembolism 2.0-3.0in high -risk patients; treat ment of venousthrombosi s and pulmonary embol ism aftera course o f heparin; preven tion of systemicembolis m in a variety of cond itions, including atria l fibrillation an d prothetic tissu e heart valves, 2. Pros thetic mechanical hear t valves; 2.5-3.5recurren t systemic emboli sm. THROMBOPLASTIN TIME [id number] 16:20:00 Test Item Value Reference Range Interpretation Comments THROMBOPLASTIN TIME 33.3 SECONDS 23.8-34.8 N INTERPRE TATIVE PARTIAL (test code = DATA:Th erapeutic PTT) range: Unfractionated heparin:55 - 80 seconds Argatroban:1.5 to 3 times the basel ine PTT BASIC METABOLIC [id number] 16:20:00 Test Item Value Reference Range Interpretation Comments SODIUM (test code 140 mmol/L 136-145 N Please not e: New = NA) Reference Range Nov 2020 POTASSIUM (test 3.7 mmol/L 3.5-5.1 N code = K) CHLORIDE (test 103 mmol/L 98-107 N Please note: New code = CL) Reference Range Nov 2020 CARBON DIOXIDE 29 mmol/L 20-31 N Please note: New (test code = CO2) Reference Range Nov 2020 GLUCOSE (test code 123 mg/dL 74-106 H Please no te: New = GLU) Reference Range Nov 2020 BLOOD UREA 12 mg/dL 9-23 N Please note: Ne w NITROGEN (test Reference Ran ge Feb code = BUN) 2020 GLOMERULAR >=60 max >60 The estimated FILTRATION RATE estimate glomerular (test code = GFR) filtration rate is computed usingpatient ra ce, age (>18), sex, and serum creatinin e. If anyof the neede d data elements a re missing the Laboratory marlene ot compute an estimation of t he glomerular filtration rate . CREATININE (test 0.80 mg/dL 0.55-1.02 N Please note : New code = CREAT) Reference Rang e Nov 2020 CALCIUM (test code 10.4 mg/dL 8.7-10.4 N Please no te: New = CA) Reference Range Nov 2020 PROTHROMBIN [id number] 16:17:00 Test Item Value Reference Range Interpretation Comments PROTHROMBIN TIME 11.2 SECONDS 10.3-12.9 N PATIENT (test code = PTP) INTERNATIONAL 0.99 INR UNIT 0.9-1.11 N The INR is us eful only NORMAL RATIO (test for monit oring code = INR) anticoagulant therapy.It may be unreliable in t he initial phase o f antigoagulation and in unstable patien ts. Indication for Anticoagulation Recommend ed INR 1. Prevention o f venous thomboembolism 2.0-3.0in high -risk patients; treat ment of venousthrombosi s and pulmonary embol ism aftera course o f heparin; preven tion of systemicembolis m in a variety of cond itions, including atria l fibrillation an d prothetic tissu e heart valves, 2. Pros thetic mechanical hear t valves; 2.5-3.5recurren t systemic emboli sm. THROMBOPLASTIN TIME [id number] 16:17:00 Test Item Value Reference Range Interpretation Comments THROMBOPLASTIN TIME PARTIAL (test SECONDS 23.8-34.8 code = PTT) - CT HEAD/BRAIN W/O [id number] 16:10:00 [facility] : 1950 Sex: FPatient Name: CESILIA SHUKLA Unit No: [id number] EXAMS: CPT CODE: [id number] CT HEAD/BRAIN W/O CONT [id number] EXAM: CT Head without contrast Location: A1 HISTORY: Severe headache COMPARISON: None available. TECHNIQUE:Multiple transaxial images of the brain were obtained without intravenous contrast. Images were reformatted to create coronal and sagittal reconstructions. One or more of the following dose reduction techniques were used: Automated exposure control, adjustment of the mA and/orkV according to patient size, and/or utilization of iterative reconstruction technique.DLP: 891 mGy-cm. FINDINGS: There is no acute intracranial hemorrhage. There is no mass, mass effect, midline shift or extra-axial fluid collection. Brain parenchymal volume and ventricular caliber are within normal limits. Brumfield-white differentiation is maintained. There is no evidence for acute major vessel infarct. There are areas of decreased attenuation within subcortical deep white matter which are nonspecific. Paranasal sinuses, mastoid air cells and visualized orbital contents are within normal limits. Osseous structures are within normal limits. IMPRESSION: No acute intracranial abnormality. Chronic small vessel ischemic white matter disease. Electronically Signed by BEAN WOMACK M.D. on 021 at 1610 Reported and signed by: BEAN WOMACK M.D. CC: Joseph Guaman MD Technologist: Torrie Escobedo,RT; SHYANN MARTINEZ RT(R),(CT) CTDI: 55.7 DLP: 891 Trscr Dt/Tm: 03/25/2021 (1610) by:[email or web address] Printed Martin e/Time: 03/25/2021 (1012) Name: CESILIA SHUKLA [facility] Phys: Joseph Craven MD [address] : 1950 Age: 70 Sex: F [place], [place] [address] Loc: P.ERS Exam Date: 03/25/2021 Status: REG ER PH: FAX: PAGE 1 Signed ReportCBC W/AUTO DIFF 2021-03-25 16:08:00 Test Item Value Reference Range Interpretation Comments WHITE BLOOD CELL (test code = 6.7 x10 3/uL 4.8-10.8 N WBC) RED BLOOD CELL (test code = 4.49 x10 6/uL 4.20-5.40 N RBC) HEMOGLOBIN (test code = HGB) 14.0 g/dL 12.0-16.0 N HEMATOCRIT (test code = HCT) 43.3 % 37.0-47.0 N MEAN CELL VOLUME (test code = 96.4 fL 81.0-99.0 N MCV) MEAN CELL HGB (test code = MCH) 31.2 pg 27-31 H MEAN CELL HGB CONCENTRATION 32.3 G/DL 33-36.5 L (test code = MCHC) RED CELL DISTRIBUTION WIDTH 12.2 % 12.9-16.9 L (test code = RDW) PLATELET COUNT (test code = 296 x10 3/uL 150-440 N PLT) MEAN PLATELET VOLUME (test code 9.3 fL 8.9-12.4 N = MPV) NEUTROPHIL % (test code = NT%) 63.5 % 42.2-75.2 N LYMPHOCYTE % (test code = LY%) 26.7 % 20.5-51.1 N MONOCYTE % (test code = MO%) 7.3 % 1.7-9.3 N EOSINOPHIL % (test code = EO%) 1.8 % 0.0-7.0 N BASOPHIL % (test code = BA%) 0.6 % 0-2.5 N NEUTROPHIL # (test code = NT#) 4.23 x10 3/uL 1.80-7.70 N LYMPHOCYTE # (test code = LY#) 1.78 x10 3/uL 1.00-4.80 N MONOCYTE # (test code = MO#) 0.49 x10 3/uL 0.00-0.80 N EOSINOPHIL # (test code = EO#) 0.12 x10 3/uL 0.00-0.45 N BASOPHIL # (test code = BA#) 0.04 x10 3/uL 0.0-0.20 N UA RFLX MICR CULT IF [id number] 16:08:00 Test Item Value Reference Range Interpretation Comments UA COLOR (test code = COLU) YELLOW DISCRIPT YELLOW UA APPEARANCE (test code = CLEAR DISCRIPT CLEAR APPU) UA GLUCOSE DIPSTICK (test NEGATIVE mg/dL NEGATIVE code = DGLUU) UA BILIRUBIN DIPSTICK (test NEGATIVE NEGATIVE code = BILU) UA KETONE DIPSTICK (test code TRACE mg/dL NEGATIVE A = KETU) UA SPECIFIC GRAVITY (test 1.015 1.005-1.030 code = SGU) UA BLOOD DIPSTICK (test code NEGATIVE NEGATIVE = DERREK) UA PH DIPSTICK (test code = 7.0 5.0-9.0 WILDER) UA PROTEIN DIPSTICK (test NEGATIVE mg/dL NEGATIVE code = PROU) UA UROBILINOGEN DIPSTICK 0.2 mg/dL 0.2-1.0 (test code = URO) UA NITRITE DIPSTICK (test NEGATIVE NEGATIVE code = ROBERT) UA LEUKOCYTE ESTERASE SMALL NEGATIVE A DIPSTICK (test code = LEUU) UA WBC (test code = WBCU) #WBC/HPF 0-2 UA RBC (test code = RBCU) #RBC/HPF 0-2 UA BACTERIA (test code = /HPF NONE-TRACE BACU) UA SQUAMOUS CELLS (test code /LPF NONE-TRACE = SQU) Indication for culture: Dysuria/EijxmwpaiEGQFWVFCDIIH0082-05-59 12:05:0011.2 [facility]unQXHAPNTBLKAU3621-71-13 12:05:0091[facility]annELECTROLYTES 2017-08-17 12:05:99861Zxmpitwg BtazzenCBEQVWHWTSYN2299-87-77 12:05:0011[facility] TjgefcoRSYKRHOHJHMV4635-64-51 12:05:000.65[facility] BecbcbzZHRZWFUIAROT3986-24-27 12:05:0026[facility] VznceklQPELPNJOJBGV9891-22-41 12:05:48440Mdppbldn Inocente DYCWZSGRMGGD1515-46-42 12:05:004.2[facility] JtaaqpzTUKKBPSCGVKY4291-88-19 12:05:009.0[facility] ImwmqluUTWVMYYYNTQR9627-43-56 12:05:44639Fnbrfphz Inocente CHEM RQBJN7740-01-51 10:15:003.5[facility] HermannCHEM FPMQG1955-80-50 10:15:002.5 [facility] GfejorlBXCSIBJRVNFW3304-50-96 10:15:0010.3[facility] HermannELECTROLYTES 2016-06-02 10:15:0092[facility] RhhexegVONTDHKGIXPT2332-34-32 10:15:008.4[facility] HubivyvBQFDFWSRBPKI9939-30-48 10:15:71319Csdkppmc HylwuckPHFXGPYNNVMI3439-89-75 10:15:000.65[facility] XjgbhgtOKOXXYUFFQUZ9844-99-22 10:15:0029[facility] [place] RTTRYUGJSXVG8245-61-65 10:15:78618Fqvlgyja ZdzrkizHSRVPWASEIXU3760-75-00 10:15:004.3[facility] CrgzomlTBOCXVZPMXIG3545-90-22 10:15:49900Czymhgfn [place] PFRGSVXRNPOS0335-27-02 10:15:0010[facility] XrxdgftYHRBMGGJTN2636-62-94 10:15:00 0.4[facility] WorzlmfRYJMHAHKER0629-28-92 10:15:000.9[facility] HermannHEMATOLOGY 2016-06-02 10:15:0011.6[facility] CcsqdewHTMDBNHGBL2554-25-10 10:15:005.8[facility] YhmhqbiMKHHSDWCPA1451-35-22 10:15:0011.9[facility] UxxcgjkSIMJDXYHLQ3481-28-39 10:15:0070.5[facility] QiihbyjAFQHIQDDON7408-12-15 10:15:000.2[facility] OAGVCFCIBA8783-83-67 10:15:005.4[facility] OweqdcfHSQKTFSKDE3327-46-39 10:15:000.9 [facility] AexryjuHWPIIISJSU7795-57-27 10:15:0028.5[facility] HermannHEMATOLOGY 2016-06-02 10:15:009.6[facility] AhoqxeoLZYEXWCQOO4418-21-67 10:15:0093.6[facility] XhluodmHXVVFBPFSN0143-07-54 10:15:003.04[facility] HuixzckZOYWTJHNZJ0532-04-76 10:15:0033.6[facility] WizyvqvWUZVTZGQZV2593-75-38 10:15:0015.0[facility] UUXBKYOUGU8071-88-86 10:15:87907Opsmiaux BqkjzvcFRQORZOTXE3987-21-72 10:15:006.9 [facility] EnftkngDOIGKIFZOM9020-21-28 10:15:007.7[facility]annHEMATOLOGY 2016-06-02 10:15:00 Test Item Value Reference Range Interpretation Comments MCH (test code = MCH) 31.4 pg 27.0-31.0 [facility] HermannCHEM PDCQZ2662-40-35 08:20:003.4[facility] HermannCHEM PANEL 2016-06-01 08:20:0090[facility] HermannCHEM JFJXU2330-26-90 08:20:007.3[facility] HermannCHEM PCWBM8003-93-13 08:20:0023[facility] HermannCHEM MOVNE7247-26-98 08:20:47562Wjpcbocf HermannCHEM MWIPI3691-79-83 08:20:000.70[facility] HermannCHEM PMVTD7387-36-23 08:20:004.4[facility]annCHEM XPLOA0367-93-00 08:20:30144 [facility]annCHEM PQDMJ7883-72-04 08:20:0096[facility]annCHEM PANEL 2016-06-01 08:20:005[facility] HermannCHEM KFUMH8800-80-90 08:20:0015.4[facility] HermannCHEM RYMPP0988-09-54 08:20:002.1[facility] ZosnmnxKPZCDYRMZE8208-70-70 08:20:006.9[facility] CvhuxwuMCLZHYYXIQ2201-88-62 08:20:0014.7[facility] KPUJARFWZU5503-55-21 08:20:0033.4[facility] FmkayzhUVGESTGZVW0328-60-89 08:20:00 Test Item Value Reference Range Interpretation Comments MCH (test code = MCH) 31.5 pg 27.0-31.0 Memorial LhjhsejPMUJOMZFJJ4776-53-69 08:20:009.9[facility] HermannHEMATOLOGY 2016-06-01 08:20:003.13[facility] GtohszuGBEOKLFJTI7200-04-29 08:20:10153Yiufvwhh LcfyhdeMMONHYOUBO3262-28-00 08:20:0094.1[facility] IlckbrxJGKUETHHLG3659-01-37 08:20:0029.5[facility] NrxrqgoPWUQPRVFFQ2118-10-48 08:20:007.6[facility] KJSAJTVZSN3298-21-39 08:20:0068.3[facility] FiifhkdWEDIYBXOLD0058-10-76 08:20:00 14.6[facility] VhdzxiqOQBLBEQWNE8403-59-36 08:20:009.8[facility]annHEMATOLOGY 2016-06-01 08:20:007.0[facility] KfadcbaRDWDUNEIZG6717-92-86 08:20:001.1[facility] AnbxwwpCXTVWGBGSQ7175-84-26 08:20:000.3[facility] VpqarcqDDVQGOYMTO5576-53-40 08:20:000.5[facility] EwlzqqhLKAXHNCFQM9642-10-17 08:20:005.2[facility] [place] LJXMPIPEUP6877-10-57 08:20:000.7[facility] HermannCHEM WQHKX7628-30-60 10:09:97098 [facility] HermannCHEM SDVPU9078-03-10 10:09:69234Wnaijcrr HermannCHEM PANEL 2016-05-31 10:09:51061Uzdohhyp HermannCHEM YJWMW5569-39-67 10:09:004.7[facility] HermannCHEM XSSDD2059-86-24 10:09:005[facility] HermannCHEM CXPJV6510-80-04 10:09:000.58[facility] HermannCHEM CFXLK1977-41-00 10:09:008.5[facility] HermannCHEM VFENU0553-58-10 10:09:0028[facility] HermannCHEM UWECM2325-21-67 10:09:0096 [facility]annCHEM REVBG9738-58-23 10:09:009.7[facility] HermannCHEM PANEL 2016-05-31 10:09:002.3[facility] HermannCHEM DGBMG6794-63-26 10:09:003.5[facility] AgnxwzzHAZYHRKSLQ3368-68-07 10:09:000.6[facility] GiqcazaHBZTLQTPSY1759-53-71 10:09:008.7[facility] ZfylhglGHZIGAIJGS9679-62-02 10:09:0017.7[facility] VNEBBAJUZG6962-17-81 10:09:0065.0[facility] YnctzinESGLFDAVWR2758-55-44 10:09:00 8.4[facility] KufudfbRPLWJZSCAU3017-02-41 10:09:001.1[facility] HermannHEMATOLOGY 2016-05-31 10:09:004.2[facility] TcwkvwpKCCKGFEYLD2342-85-02 10:09:000.2[facility] DtienuoGFQNWKDWLT4003-14-93 10:09:000.5[facility] PbykfspSJWNTSUAAY9227-50-96 10:09:0014.5[facility] HvqdnrwDHPNZDJLHL7412-24-51 10:09:0034.1[facility] WVZMKLMZTP9541-16-93 10:09:0027.8[facility] WbrfwsnJPOREFQCUP8663-67-24 10:09:00 Test Item Value Reference Range Interpretation Comments MCH (test code = MCH) 31.7 pg 27.0-31.0 [facility] GxhinvqXURSUKYDRC7497-71-14 10:09:0093.1[facility] HermannHEMATOLOGY 2016-05-31 10:09:88273Ixqxhyiq KcarbyeYOUZQVBUYS3628-74-08 10:09:006.9[facility] TukarrbHRBEENXRPY2490-65-04 10:09:002.99[facility] VohqmlcUVSGJLGQVI4890-49-96 10:09:009.5[facility] CupxkgrMUXVAHIUJT9631-77-03 10:09:006.5[facility] [place] PARATHYROID DMFZEYP9776-17-10 07:56:001.13[facility] HermannPARATHYROID PROFILE 2016-05-30 07:56:001.10[facility] HermannPARATHYROID EWDUFJZ8019-94-85 09:00:00 1.04[facility] HermannPARATHYROID RIQPLRM0641-51-01 09:00:001.05[facility] BLOOD BANK QTUQGRC1358-40-44 21:39:00Negative (05/25/16 4:39 PM)[facility] RIHNUTYLBR8772-02-33 21:39:00 Test Item Value Reference Range Interpretation Comments PTT (test code = PTT) 29.5 s 22.9-35.8 [facility] FurykgeLMGOGQKRUS3630-18-79 21:39:00 Test Item Value Reference Range Interpretation Comments PT (test code = PT) 13.6 s 12.0-14.7 [facility] CvhqycsHMLOBTRDKK8249-70-42 21:39:001.01[facility] HermannPARATHYROID PLQYDEY4455-62-67 08:39:001.07[facility] HermannPARATHYROID XQBOMBK2030-66-59 08:39:001.07[facility] HermannDRUG FAWOKW5330-42-75 02:00:00Negative *NA*(05/22/16 9:00 PM)[facility]annDR[facility] LCHLRR3255-74-47 02:00:00Negative *NA*(05/22/16 9:00 PM)[facility]annDR[facility] KKOYTQ0357-70-09 02:00:00Positive *ABN*(05/22/16 9:00 PM) [facility]annDR[facility] EHEKVN3546-49-78 02:00:00Negative *NA*(05/22/16 9:00 PM) [facility] [id number] 02:00:00Negative *NA*(05/22/16 9:00 PM) [facility] FMFQFW7497-01-63 02:00:00Negative *NA*(05/22/16 9:00 PM) [facility] [id number] 02:00:00Negative *NA*(05/22/16 9:00 PM) [facility] AYYDIQ9822-54-37 02:00:00See Note (05/22/16 9:00 PM)[facility] NHKRE9903-11-56 02:00:007[facility] STOOL 2016-05-23 02:00:00Large *ABN*(05/22/16 9:00 PM)[facility] 2016-05-23 02:00:00Negative (05/22/16 9:00 PM)[facility] 2016-05-23 02:00:00Negative *NA*(05/22/16 9:00 PM)[facility] 2016-05-23 02:00:00Clear (05/22/16 9:00 PM)[facility] 2016-05-23 02:00:00Light Yellow *NA*(05/22/16 9:00 PM)[facility] [id number] 02:00:00Negative (05/22/16 9:00 PM)[facility] [id number] 02:00:001.013[facility] [id number] 02:00:00 8.0[facility] OFNBSJH8634-35-30 19:28:0015.1[facility] DFHPYZB9136-57-42 19:28:000.6[facility] PZMQZWE6749-36-08 19:28:00 2667[facility] [id number] 19:28:00<0.010[facility] CARDIAC LIGMDMH7817-11-05 19:28:00<0.02[facility] ENZYMES 2016-05-22 14:13:000.8[facility] EWRPCJB8421-75-96 14:13:0021.5 [facility] OGBXKQF3330-93-00 14:13:00<0.010[facility] CARDIAC IDUHAUL2300-04-68 14:13:265260[facility]annC[facility] HEJULHF7966-82-35 14:13:00<0.02[facility]annCHE[facility] [id number] 13:27:001.0[facility] WNBTTVCWEL4205-10-07 05:34:00 Test Item Value Reference Range Interpretation Comments PTT (test code = PTT) 28.6 s 22.9-35.8 [facility] OrunsgnARZQHDXFGO1035-79-38 05:34:001.05[facility] 2016-05-22 05:34:00 Test Item Value Reference Range Interpretation Comments PT (test code = PT) 14.0 s 12.0-14.7 [facility] [id number] 22:15:00Negative (05/21/16 5:15 PM) [facility] [id number] 21:20:00<0.02[facility]annCHEM [id number] 21:20:002.4[facility] HfkqnqjPMQKWXUPHM6810-23-02 21:20:00 Test Item Value Reference Range Interpretation Comments PT (test code = PT) 13.0 s 12.0-14.7 [facility] XttytytVLGDCJVAKT1660-57-79 21:20:000.95[facility] 2016-05-21 21:20:00 Test Item Value Reference Range Interpretation Comments PTT (test code = PTT) 25.3 s 22.9-35.8 [facility] SivoipzEKPAUBVHRJ4346-12-99 21:20:00<3[facility]annTOXICOLOGY 2016-05-21 21:20:00<0.003[facility] PtjjjtdNTAEWTRDVO7145-11-94 21:15:001.7 [facility] IzksshcGXLRXKBRYX2121-04-57 21:15:00 Test Item Value Reference Range Interpretation Comments Angle Rapid (test code = Angle 77 degrees 64-80 Rapid) [facility]kg[facility]wekYBGXGXKODX5225-06-48 21:[facility].2[facility] 21:15:00 Test Item Value Reference Range Interpretation Comments Max Amplitude Rapid (test code = Max 71 mm 52-71 Amplitude Rapid) [facility] CenterMxytgfeDAXCGCUBAX2697-11-95 21:15:00 Test Item Value Reference Range Interpretation Comments R-time Rapid (test code = R-time 0.7 min 0.4-0.7 Rapid) [facility] CenterAagewfgMFFDIOIJYY2169-34-23 21:15:00 Test Item Value Reference Range Interpretation Comments Split Point Rapid (test code = Split 0.5 min Point Rapid) [facility] CenterErepqpwLIRGECFLWO9915-16-73 21:15:00 Test Item Value Reference Range Interpretation Comments ACT (TEG) Rapid (test code = ACT (TEG) 113 s 86-118 Rapid) [facility] CenterVqqtfdfBQHUAUOZML5065-47-70 21:15:00 Test Item Value Reference Range Interpretation Comments K-time Rapid (test code = K-time 0.9 min 0.6-2.3 Rapid) [facility]
[2021-03-28] MEDS ORDERED: ONDANSETRON 4 MG/2 ML VIAL ONE (02:42)
[2021-03-28] MEDS ORDERED: KETOROLAC 30 MG/ML INJ ONE (02:42)
[2021-03-28] MEDS ORDERED: DIPHENHYDRAMINE 50 MG/ML VIAL ONE (02:42)
--- NOTE | 2021-03-28 03:42 | ER ---
Nurse's Notes [facility] Name: Génesis Mota Age: 70 yrs Sex: Female : 1950 Arrival Date: 03/28/2021 Time: 00:08 Bed 5 Private MD: Diagnosis: Headache Presentation: 03/28 00:28 Chief complaint: Patient's son or daughter states: she is having severe headache rr5 tonight she feels like her head is about to explode and she feels nauseous too. denies numbness, weakness or slurring of speech. Coronavirus screen: Client denies travel out of the [place] in the last 14 days. At this time, the client does not indicate any symptoms associated with coronavirus-19. Ebola Screen: Patient negative for fever greater than or equal to 101.5 degrees Fahrenheit, and additional compatible Ebola Virus Disease symptoms Patient denies exposure to infectious person. Patient denies travel to an Ebola-affected area in the 21 days before illness onset. Initial Sepsis Screen: Does the patient meet any 2 criteria? No. Patient's initial sepsis screen is negative. Does the patient have a suspected source of infection? No. Patient's initial sepsis screen is negative. Risk Assessment: Do you want to hurt yourself or someone else? Patient reports no desire to harm self or others. Onset of symptoms was March 28, 2021. 00:28 Method Of Arrival: Wheelchair rr5 00:28 Acuity: LOU 3 rr5 00:28 Care prior to arrival: Medication(s) given: Motrin, 600 mg, cyclobenzaprine 10PM. rr5 Triage Assessment: 00:58 Headache History: The patient has had previous headaches and this one is similar to ak2 previous episodes. General: Appears in no apparent distress. Behavior is calm, cooperative. Pain: Pain currently is 5 out of 10 on a pain scale. Pain began 2-3 days ago. Also complains of no other associated symptoms. Neuro: No deficits noted. Historical: - Allergies: 00:32 No Known Allergies; rr5 - Home Meds: 00:32 None [Active]; rr5 - PMHx: 00:32 None; rr5 - PSHx: 00:32 Knee surgery; rr5 - Immunization history:: Adult Immunizations up to date. - Social history:: Smoking status: unknown Patient/guardian denies using alcohol, street drugs. Screenin:58 Abuse screen: Denies threats or abuse. Denies injuries from another. Nutritional ak2 screening: No deficits noted. Tuberculosis screening: No symptoms or risk factors identified. Fall Risk None identified. Assessment: 01:00 General: Appears in no apparent distress. uncomfortable, Behavior is calm, cooperative, jb4 appropriate for age. Pain: Complains of pain in headache Pain does not radiate. Pain currently is 10 out of 10 on a pain scale. Neuro: Level of Consciousness is awake, alert, obeys commands, Oriented to person, place, time, situation. Cardiovascular: Patient's skin is warm and dry. Respiratory: Airway is patent Respiratory effort is even, unlabored, Respiratory pattern is regular, symmetrical. GI: No signs and/or symptoms were reported involving the gastrointestinal system. : No signs and/or symptoms were reported regarding the genitourinary system. EENT: No signs and/or symptoms were reported regarding the EENT system. Derm: Skin is intact, Skin is pink, warm \T\ dry. Musculoskeletal: Circulation, motion, and sensation intact. Range of motion: intact in all extremities. 02:00 Reassessment: Patient appears in no apparent distress at this time. Patient and/or jb4 family updated on plan of care and expected duration. Pain level reassessed. Patient is alert, oriented x 3, equal unlabored respirations, skin warm/dry/pink. 02:42 Reassessment: Patient appears in no apparent distress at this time. Patient and/or jb4 family updated on plan of care and expected duration. Pain level reassessed. Patient is alert, oriented x 3, equal unlabored respirations, skin warm/dry/pink. 04:00 Reassessment: Patient appears in no apparent distress at this time. Patient and/or jb4 family updated on plan of care and expected duration. Pain level reassessed. Patient is alert, oriented x 3, equal unlabored respirations, skin warm/dry/pink. Vital Signs: 00:28 BP 151 / 76; Pulse 57; Resp 16; Temp 97.5; Pulse Ox 100% ; Weight 63.5 kg; Height 5 ft. rr5 1 in. (154.94 cm); Pain 10/10; 02:30 BP 127 / 59; Pulse 57; Resp 16; Pulse Ox 98% on R/A; jb4 04:00 BP 99 / 66; Pulse 60; Resp 16; Pulse Ox 100% on R/A; jb4 00:28 Body Mass Index 26.45 (63.50 kg, 154.94 cm) rr5 [place] Coma Score: 20:05 Eye Response: spontaneous(4). Verbal Response: oriented(5). Motor Response: obeys tw4 commands(6). Total: 15. ED Course: 00:08 Patient arrived in ED. cf2 00:31 Triage completed. rr5 00:32 Arm band placed on right wrist. rr5 00:53 Sharad Burdick, RN is Primary Nurse. jb4 00:54 Ricky Hernandez MD is Attending Physician. tw4 00:58 Patient has correct armband on for positive identification. Bed in low position. Call ak2 light in reach. 00:58 No provider procedures requiring assistance completed. ak2 04:00 Patient did not have IV access during this emergency room visit. jb4 Administered Medications: 02:38 Drug: Benadryl (diphenhydrAMINE) 25 mg Route: IM; Site: right deltoid; jb4 04:20 Follow up: Response: No adverse reaction; Marked relief of symptoms jb4 02:38 Drug: Zofran (ondansetron) 4 mg Route: IM; Site: right gluteus; jb4 04:20 Follow up: Response: No adverse reaction; Marked relief of symptoms jb4 02:39 Drug: TORadol (ketorolac) 60 mg Route: IM; Site: left gluteus; jb4 04:20 Follow up: Response: No adverse reaction; Marked relief of symptoms jb4 Outcome: 03:41 Discharge ordered by . tw4 04:00 Discharged to home via wheelchair, with family. jb4 04:00 Condition: stable 04:00 Discharge instructions given to patient, family, Instructed on discharge instructions, follow up and referral plans. medication usage, Demonstrated understanding of instructions, follow-up care, medications, Prescriptions given X 2. 04:20 Patient left the ED. jb4 Signatures: Sharad Burdick RN RN jb4 Ricky Hernandez MD MD 4 Laci Clark RN RN rr5 David Martins cf2 [facility]
--- NOTE | 2021-03-28 03:42 | EDPHYS ---
Physician Documentation [facility] Name: Génesis Mota Age: 70 yrs Sex: Female : 1950 Arrival Date: 03/28/2021 Time: 00:08 Bed 5 Private MD: ED Physician Ricky Hernandez HPI: 03/28 02:41 This 70 yrs old Female presents to ER via Wheelchair with complaints of tw4 Headache. 02:41 The patient complains of pain to the forehead, right side of the back of head, right tw4 occipital area and right base of the skull. The patient describes the headache as aching, a pressure. Onset: The symptoms/episode began/occurred just prior to arrival, today. Associated signs and symptoms: Pertinent positives: nausea, vomiting. Headache History: The patient has had previous headaches and this one is similar to previous episodes. The symptoms are alleviated by nothing. the symptoms are aggravated by nothing. The patient has experienced a previous episode, approximately 3 days ago. 02:41 The patient has been recently seen by a physician: [facility] and CT scan done 3 tw4 day(s) ago, with similar presenting complaints, CT scan was done. Historical: - Allergies: 00:32 No Known Allergies; rr5 - Home Meds: 00:32 None [Active]; rr5 - PMHx: 00:32 None; rr5 - PSHx: 00:32 Knee surgery; rr5 - Immunization history:: Adult Immunizations up to date. - Social history:: Smoking status: unknown Patient/guardian denies using alcohol, street drugs. ROS: 02:41 Constitutional: Negative for fever, chills, and weight loss, Eyes: Negative for injury, tw4 pain, redness, and discharge, Cardiovascular: Negative for chest pain, palpitations, and edema, Respiratory: Negative for shortness of breath, cough, wheezing, and pleuritic chest pain, Abdomen/GI: Negative for abdominal pain, nausea, vomiting, diarrhea, and constipation, Back: Negative for injury and pain, MS/Extremity: Negative for injury and deformity, Skin: Negative for injury, rash, and discoloration. 02:41 Neuro: Positive for headache, Negative for altered mental status, dizziness, gait disturbance, hearing loss, loss of consciousness, numbness, seizure activity, speech changes, syncope, near syncope, tinnitus, tremor, visual changes, weakness, acute changes. Exam: 02:51 Constitutional: This is a well developed, well nourished patient who is awake, alert, tw4 and in no acute distress. Head/Face: Normocephalic, atraumatic. Eyes: Pupils equal round and reactive to light, extra-ocular motions intact. Lids and lashes normal. Conjunctiva and sclera are non-icteric and not injected. Cornea within normal limits. Periorbital areas with no swelling, redness, or edema. Chest/axilla: Normal chest wall appearance and motion. Nontender with no deformity. No lesions are appreciated. Cardiovascular: Regular rate and rhythm with a normal S1 and S2. No gallops, murmurs, or rubs. Normal PMI, no JVD. No pulse deficits. Respiratory: Lungs have equal breath sounds bilaterally, clear to auscultation and percussion. No rales, rhonchi or wheezes noted. No increased work of breathing, no retractions or nasal flaring. Abdomen/GI: Soft, non-tender, with normal bowel sounds. No distension or tympany. No guarding or rebound. No evidence of tenderness throughout. Back: No spinal tenderness. No costovertebral tenderness. Full range of motion. Skin: Warm, dry with normal turgor. Normal color with no rashes, no lesions, and no evidence of cellulitis. MS/ Extremity: Pulses equal, no cyanosis. Neurovascular intact. Full, normal range of motion. Neuro: Awake and alert, GCS 15, oriented to person, place, time, and situation. Cranial nerves II-XII grossly intact. Motor strength 5/5 in all extremities. Sensory grossly intact. Cerebellar exam normal. Normal gait. Vital Signs: 00:28 BP 151 / 76; Pulse 57; Resp 16; Temp 97.5; Pulse Ox 100% ; Weight 63.5 kg; Height 5 ft. rr5 1 in. (154.94 cm); Pain 10/10; 02:30 BP 127 / 59; Pulse 57; Resp 16; Pulse Ox 98% on R/A; jb4 04:00 BP 99 / 66; Pulse 60; Resp 16; Pulse Ox 100% on R/A; jb4 00:28 Body Mass Index 26.45 (63.50 kg, 154.94 cm) rr5 [place] Coma Score: 20:05 Eye Response: spontaneous(4). Verbal Response: oriented(5). Motor Response: obeys tw4 commands(6). Total: 15. MDM: 01:04 Patient medically screened. tw4 20:05 Data reviewed: vital signs, nurses notes. Data interpreted: Pulse oximetry: tw4 Interpretation: normal. Counseling: I had a detailed discussion with the patient and/or guardian regarding: the historical points, exam findings, and any diagnostic results supporting the discharge/admit diagnosis. Medication response: Toradol relieved patient's pain. The symptoms have resolved. Special discussion: I discussed with the patient/guardian in detail that at this point there is no indication for admission to the hospital. It is understood, however, that if the symptoms persist or worsen the patient needs to return immediately for re-evaluation. Administered Medications: 02:38 Drug: Benadryl (diphenhydrAMINE) 25 mg Route: IM; Site: right deltoid; jb4 04:20 Follow up: Response: No adverse reaction; Marked relief of symptoms jb4 02:38 Drug: Zofran (ondansetron) 4 mg Route: IM; Site: right gluteus; jb4 04:20 Follow up: Response: No adverse reaction; Marked relief of symptoms jb4 02:39 Drug: TORadol (ketorolac) 60 mg Route: IM; Site: left gluteus; jb4 04:20 Follow up: Response: No adverse reaction; Marked relief of symptoms jb4 Disposition: 03/28/21 03:41 Discharged to Home. Impression: Headache. - Condition is Stable. - Discharge Instructions: General Headache Without Cause, Migraine Headache. - Prescriptions for Fiorinal 50- 325-40 mg Oral Capsule - take 1 capsule by ORAL route every 4 hours As needed - not to exceed 6 capsules per day; 20 capsule. Zofran 4 mg Oral Tablet - take 1 tablet by ORAL route every 12 hours As needed; 6 tablet. - Medication Reconciliation Form, Thank You Letter, Antibiotic Education, Prescription Opioid Use form. - Follow up: Private Physician; When: Upon discharge from the Emergency Department; Reason: Recheck today's complaints, Continuance of care, Re-evaluation by your physician. - Problem is new. - Symptoms have improved. Signatures: Sharad Burdick RN RN jb4 Ricky Hernandez MD MD tw4 Laci Clark, RN RN rr5 Corrections: (The following items were deleted from the chart) 04:20 03:41 03/28/2021 03:41 Discharged to Home. Impression: Headache. Condition is Stable. jb4 Forms are Medication Reconciliation Form, Thank You Letter, Antibiotic Education, Prescription Opioid Use. Follow up: Private Physician; When: Upon discharge from the Emergency Department; Reason: Recheck today's complaints, Continuance of care, Re-evaluation by your physician. Problem is new. Symptoms have improved. tw4
[2021-03-28 04:27] VITALS: TEMP 97.5
[2021-03-28 04:29] VITALS: BP 99/66; O2SAT 100
== END 2021-03-28 04:20 | disposition home or self-care (01) ==
LOC: ER 00:05
DX: R51.9 Headache, unspecified (principal)
CPT/HCPCS: J1200; J2405; 96372; 99283

== ENCOUNTER 2023-04-27 00:11 | Emergency (ER) | payer MEDICARE ==
--- OUTSIDE RECORDS SUMMARY | 2023-04-27 00:24 | XMS REPORT | Continuity of Care Document ---
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 Wasted: ___ mg Cefazolin 2015-0 No Notes: Memori a 05-27 (Same As: l 03:30: Ancef, Inoc[place] 00 Kefzol) Cefazolin FOR IV SET ONLY MEDICATION WASTE Product Size: 1000 mg Product Wasted: ___ mg omeprazole 2015-0 Yes 40 mg = 1 Me moria 40 mg oral 8-03 cap, PO, l delayed 17:30: Daily, 0 Julian n release 00 Refill(s) capsule omeprazole 2016-0 Yes 40 mg = 1 Me moria 40 mg oral 8-03 cap, PO, l delayed 17:30: Daily, 0 Julian n release 00 Refill(s) capsule Sodium 2015-0 No 500 mL, Memoria Chloride 8-03 500 ml/hr, l 0.154 09:23: Infuse Inocente MEQ/ML 00 Over: 1 Injectable hr, Route: Solution IV, ONCE, Priority: STAT, Dosing Weight 59.091 kg, Start date: 05/25/16 4:23:00 CDT, Duration: 1 doses or times, Stop date: 05/25/16 4:23:00 CDT Sodium 2016-0 No 500 mL, Memoria Chloride 8-03 500 ml/hr, l 0.154 09:23: Infuse [place] MEQ/ML 00 Over: 1 Injectable hr, Route: Solution IV, ONCE, Priority: STAT, Dosing Weight 59.091 kg, Start date: 05/25/16 4:23:00 CDT, Duration: 1 doses or times, Stop date: 05/25/16 4:23:00 CDT Zofran 2015-0 No Notes: Memoria 05-24 (Same as: l 14:35: Zofran) Inocente 00 MEDICATION WASTE Product Size: 4 mg Product Wasted: ___ mg Zofran 2015-0 No Notes: Memoria 05-24 (Same as: l 14:35: Zofran) Inoc[place] 00 MEDICATION WASTE Product Size: 4 mg Product Wasted: ___ mg Flumazenil No Notes: Memor ia - (Same as: l 13:26: Romazicon) [place] Naloxone No Notes: Memoria 05-24 Same as l 13:26: Narcan Inoc[place] Ondansetron No Notes: Cl stuart 05-24 (Same as: l 13:26: Zofran) [place] 00 MEDICATION WASTE Product Size: 4 mg Product Wasted: ___ mg Hydromorpho No Notes: Cl stuart ne 05-24 Same as: l 13:26: Dilaudid [place] 00 Oxycodone No Notes: Memori a 05-24 (Same as: l 13:26: Roxicodone [place] 00 ) Flumazenil No Notes: Memor ia 05-24 (Same as: l 13:26: Romazicon) Inocente Naloxone No Notes: Memoria 05-24 Same as l 13:26: Narcan [place] Ondansetron No Notes: Cl stuart 05-24 (Same as: l 13:26: Zofran) Inocente 00 MEDICATION WASTE Product Size: 4 mg Product Wasted: ___ mg Hydromorpho No Notes: Cl stuart ne 05-24 Same as: l 13:26: Dilaudid Inoc[place] 00 Oxycodone No Notes: Memori a 05-24 (Same as: l 13:26: Roxicodone [place] 00 ) Ancef 0 No 2 gm, Memoria 05-24 Route: l 12:39: IVPB, [place] 00 ONCE, Dosing Weight 59.091, kg, Start date: 05/24/16 7:39:00 CDT, Duration: 1 doses or times, Stop date: 05/24/16 7:39:00 CDT, Surgical Prophylaxi s Only; For patients < 120 kg Ancef No 2 gm, Memoria 05-24 Route: l 12:39: IVPB, Inoc[place] 00 ONCE, Dosing Weight 59.091, kg, Start date: 05/24/16 7:39:00 CDT, Duration: 1 doses or times, Stop date: 05/24/16 7:39:00 CDT, Surgical Prophylaxi s Only; For patients < 120 kg Isolyte S No Notes: Memori a PH-7.4 8- (Same as: l (Bolus) IV 10:42: Isolyte S He rmann 00 PH7.4) Isolyte S No Notes: Memori a PH-7.4 8- (Same as: l (Bolus) IV 10:42: Isolyte S He rmann 00 PH7.4) Isolyte S No Notes: Memori a (PH 7.4) 05-24 (Same as: l 1000 mL 05:01: Isolyte S Kathy nn 1,000 mL 00 PH 7.4) Isolyte S No Notes: Memori a (PH 7.4) 05-24 (Same as: l 1000 mL 05:01: Isolyte S Kathy nn 1,000 mL 00 PH 7.4) remove No Notes: Memoria patch 05-24 Remove l 02:00: patch 12 [place] 00 hours after applicatio n each day. remove No Notes: Memoria patch 05-24 Remove l 02:00: patch 12 [place] 00 hours after applicatio n each day. Lidocaine No Notes: Memori a 0.05 MG/MG 05-23 Apply only l Transdermal 17:30: once for He rmann Patch 00 up to 12 hours in a 24-hour period (12 hours on and 12 hours off). (Same as: Lidoderm) "Remove old patch before applicatio n of new patch" Lidocaine No Notes: Memori a 0.05 MG/MG [...] Bitartrate 00 acetaminop 10 MG Oral hen. (Same Tablet as: Pantego [Pantego 325/10) 10/325] Acetaminoph No Notes: Do M emoria en 325 MG / 05-23 not exceed l Hydrocodone 17:00: 4gm/day of [place] Bitartrate 00 acetaminop 10 MG Oral hen. (Same Tablet as: Pantego [Pantego 325/10) 325] Oxycodone No Notes: Memori a Hydrochlori 05-23 (Same as: l de 5 MG 15:43: Roxicodone Herm ihsan Oral Tablet 00 ) Oxycodone No Notes: Memori a Hydrochlori 05-23 (Same as: l de 5 MG 15:43: Roxicodone Herm ihsan Oral Tablet 00 ) Ketorolac No 4 days. Cl stuart 05-23 l 15:42: [place] 00 Ketorolac No 4 days. Cl stuart 05-23 l 15:42: [place] 00 sennosides, No Notes: Cl stuart [facility] 05-23 (Same as: l 14:00: Senokot) [place] 00 Docusate No Notes: Memoria 05-23 (Same as: l 14:00: Colace) Inocente 00 (Do Not Crush) sennosides, No Notes: Cl stuart [facility] 05-23 (Same as: l 14:00: Senokot) [place] 00 Docusate No Notes: Memoria 05-23 (Same as: l 14:00: Colace) In[place] 00 (Do Not Crush) Bisacodyl No Notes: Memori a 05-23 (Same As: l 13:47: Dulcolax, [place] 00 Correctol) (Do Not Crush) "Do Not Crush" Bisacodyl No Notes: Memori a 05-23 (Same As: l 13:47: Dulcolax, [place] 00 Correctol) (Do Not Crush) "Do Not Crush" Insulin No 60 units) Cl stuart regular 05-23 WASTE: F/P l 13:46: - Black; E [place] - Municipal Trash Bin Stable for 28 days at room temperatur e Expires in days from ____Date Dextrose 2015-0 No 12.5 gm, Memor ia 50% Syringe 05-23 25 mL, l 13:46: Route: [place] 00 IVP, Drug Form: INJ, Dosing Weight 59.091, kg, PRN, PRN Blood Glucose Results, Start date: 05/23/16 8:46:00 CDT, Duration: 30 day, Stop date: 06/22/16 8:45:00 CDT Glucagon 2015- No 1 mg, Memoria 05-23 Route: IM, l 13:46: Drug form: Inoc[place] PDR/INJ, PRN, Dosing Weight 59.091, kg, PRN Blood Glucose Results, Start date: 05/23/16 8:46:00 CDT, Duration: 30 day, Stop date: 06/22/16 8:45:00 CDT Insulin 2015-0 No 60 units) Cl stuart regular 05-23 WASTE: F/P l 13:46: - Black; E [facility] Trash Bin Stable for 28 days at room temperatur e Expires in days from ____Date Dextrose 2015- No 12.5 gm, Memor ia 50% Syringe 05-23 25 mL, l 13:46: Route: [place] 00 IVP, Drug Form: INJ, Dosing Weight 59.091, kg, PRN, PRN Blood Glucose Results, Start date: 05/23/16 8:46:00 CDT, Duration: 30 day, Stop date: 06/22/16 8:45:00 CDT Glucagon 2015-0 No 1 mg, Memoria 05-23 Route: IM, l 13:46: Drug form: [place] 00 PDR/INJ, PRN, Dosing Weight 59.091, kg, PRN Blood Glucose Results, Start date: 05/23/16 8:46:00 CDT, Duration: 30 day, Stop date: 06/22/16 8:45:00 CDT Aspirin 325 2015-0 No Notes: Cl stuart MG Oral - Take with l Tablet 13:45: food. Aspirin 325 2015-0 No Notes: Cl stuart MG Oral - Take with l Tablet 13:45: food. Tylenol No Notes: Max Cl stuart 8-01 acetaminop l 03:00: hen 4000 In[place] 00 mg/day (4 gm/day). (Same as: Tylenol Extra Strength) Tylenol No Notes: Max Cl stuart 8-01 acetaminop l 03:00: hen 4000 [place] 00 mg/day (4 gm/day). (Same as: Tylenol Extra Strength) Iohexol No Notes: Memoria 7-31 (same l 18:28: as:Omnipaq Inocente 00 ue 350). WASTE: F/P - Black; E - Municipal Trash Bin Iohexol No Notes: Memoria 7-31 (same l 18:28: as:Omnipaq Inoc[place] 00 ue 350). WASTE: F/P - Black; E - Municipal Trash Bin Aspirin 325 No Notes: Cl stuart MG Oral 7-31 Take with l Tablet 16:40: food. Inoc[place] 00 Lovenox No Notes: Memoria 7-31 (Same as: l 16:40: Lovenox) [place] Aspirin 325 No Notes: Cl stuart MG Oral 7-31 Take with l Tablet 16:40: food. [place] 00 Lovenox No Notes: Memoria 7-31 (Same as: l 16:40: Lovenox) Inocente Isolyte S No Notes: Memori a PH-7.4 7- (Same as: l (Bolus) IV 08:57: Isolyte S He rmann 00 PH 7.4) Isolyte S No Notes: Memori a PH-7.4 7-31 (Same as: l (Bolus) IV 08:57: Isolyte S He rmann 00 PH 7.4) Isolyte S No Notes: Memori a (PH 7.4) 7-31 (Same as: l 1000 mL 05:29: Isolyte S Kathy nn 1,000 mL 00 PH 7.4) Isolyte S No Notes: Memori a (PH 7.4) 7-31 (Same as: l 1000 mL 05:29: Isolyte S Kathy nn 1,000 mL 00 PH 7.4) Lyrica No Notes: Memoria 7-31 (Same as: l 05:00: Lyrica) In[place] 00 tramadol 50 No Notes: Not Memoria mg oral 7-31 to exceed l tablet 05:00: 400mg/day. Kathy nn 00 (Same As: Ultram) 24 HR No 100 mg, 1 Memoria tramadol 7-31 tab, l hydrochlori 05:00: Route: PO, [place] de 100 MG 00 Drug form: Extended ERTAB, Release Q6H, Start Tablet date: 05/22/16 0:00:00 CDT, Duration: 30 day, Stop date: 06/20/16 18:00:00 CDT Oxycodone No Notes: Memori a Hydrochlori 7-31 (Same as: l de 5 MG 05:00: Roxicodone Herm ihsan Oral Tablet 00 ) Lyrica No Notes: Memoria 7-31 (Same as: l 05:00: Lyrica) Inocente tramadol 50 No Notes: Not Memoria mg oral 7-31 to exceed l tablet 05:00: 400mg/day. Kathy nn 00 (Same As: Ultram) 24 HR No 100 mg, 1 Memoria tramadol 7-31 tab, l hydrochlori 05:00: Route: PO, [place] de 100 MG 00 Drug form: Extended ERTAB, Release Q6H, Start Tablet date: 05/22/16 0:00:00 CDT, Duration: 30 day, Stop date: 06/20/16 18:00:00 CDT Oxycodone No Notes: Memori a Hydrochlori 7-31 (Same as: l de 5 MG 05:00: Roxicodone Herm ihsan Oral Tablet 00 ) celecoxib No Notes: Memori a 7-31 NSAID. l 02:00: Please [place] 00 check indication . Not for seizure. (Same As: CeleBREX) celecoxib No Notes: Memori a 7-31 NSAID. l 02:00: Please [place] 00 check indication . Not for seizure. (Same As: CeleBREX) Ondansetron No Notes: Cl stuart 7-30 (Same as: l 23:25: Zofran) In[place] 00 MEDICATION WASTE Product Size: 4 mg Product Wasted: 0 mg Ondansetron No Notes: Cl stuart 7-30 (Same as: l 23:25: Zofran) [place] 00 MEDICATION WASTE Product Size: 4 mg Product Wasted: 0 mg iodixanol No 100 mL, Memor ia 7-30 Route: l 21:56: IVP, Drug In[place] 00 Form: SOLN, Dosing Weight 63.636, kg, ONCALL, STAT, Start date: 05/21/16 16:56:00 CDT, Duration: 1 doses or times, Dose = 2.2ml/kg, Max dose = 100ml -- "To be infused by Radiology Staff ONLY" iodixanol No 100 mL, Memor ia 7-30 Route: l 21:56: IVP, Drug [place] 00 Form: SOLN, Dosing Weight 63.636, kg, ONCALL, STAT, Start date: 05/21/16 16:56:00 CDT, Duration: 1 doses or times, Dose = 2.2ml/kg, Max dose = 100ml -- "To be infused by Radiology Staff ONLY" Saline No Notes: Memoria Flush 0.9% 7-30 (Same as: l 21:14: BD [place] 00 Posiflush) Ondansetron No Notes: Cl stuart 7-30 (Same as: l 21:14: Zofran) [place] 00 MEDICATION WASTE Product Size: 4 mg Product Wasted: 0 mg Morphine No Notes: Memoria 7-30 (Same l 21:14: as:MORPhin Inoc[place] 00 e Sulfate) Saline No Notes: Memoria Flush 0.9% 7-30 (Same as: l 21:14: BD [place] 00 Posiflush) Ondansetron No Notes: Cl stuart 7-30 (Same as: l 21:14: Zofran) [place] 00 MEDICATION WASTE Product Size: 4 mg Product Wasted: 0 mg Morphine No Notes: Memoria 7-30 (Same l 21:14: as:MORPhin [place] 00 e Sulfate) Flonase Flonase Yes Na Schneider 2 spray in Common each Spirit nostril - [facility] Omeprazole Omeprazole Yes Na Schneider TOME JODI Common CAPSULA Spirit JODI VEZ AL - [facility] Omeprazole Omeprazole Yes Na Schneider 1 capsule [facility] Flonase 50 Flonase 50 No 2{spray QD Flonase 50 MCG/ACT MCG/ACT _in_eac MCG/ACT h_nostr il} Omeprazole Omeprazole No 1{capsu QD Omeprazole 40 MG 40 MG le} 40 MG Omeprazole Omeprazole No Omeprazole 40 MG 40 MG 40 MG Vital Signs Vital Name Observation Time Observation Value Comments Source Systolic blood 2022-07-20 21:55:00 109 mm[Hg] [facility] Diastolic blood 2022-07-20 21:55:00 61 mm[Hg] [facility] Heart rate 2022-07-20 21:55:00 58 /min [facility] Oxygen saturation in 2022-07-20 21:55:00 94 /min [facility] Arterial blood by [facility] Pulse oximetry Branch Body temperature 2022-07-20 21:53:00 36.33 [facility] Respiratory rate 2022-07-20 21:53:00 18 /min [facility] Body weight 2022-07-20 08:34:00 61.462 kg [facility] BMI 2022-07-20 08:34:00 24.78 kg/m2 [facility] Body height 2022-07-20 05:33:00 157.5 cm [facility] Systolic (mm Hg) 2017-08-17 15:53:00 Cl rial [place] Diastolic (mm Hg) 2017-08-17 15:53:00 Mem orial [place] Respitory Rate 2017-08-17 15:53:00 Memori al [place] Systolic (mm Hg) 2017-08-17 15:30:00 Cl rial [place] Diastolic (mm Hg) 2017-08-17 15:30:00 Mem orial [place] Respitory Rate 2017-08-17 15:30:00 Memori al [place] Respitory Rate 2017-08-17 15:15:00 Memori al [place] Systolic (mm Hg) 2017-08-17 15:15:00 Cl rial [place] Diastolic (mm Hg) 2017-08-17 15:15:00 Mem orial [place] Heart Rate 2017-08-17 12:09:00 [facility] [place] BMI Calculated 2017-08-17 11:54:00 Memori al [place] Height 2017-08-17 11:54:00 154.94 cm [facility] [place] Weight 2017-08-17 11:54:00 [facility] [place] Weight 2017-07-31 15:00:00 [facility] [place] Systolic (mm Hg) 2016-06-02 21:15:00 Cl rial [place] Diastolic (mm Hg) 2016-06-02 21:15:00 Mem orial [place] Temperature Oral (F) 2016-06-02 21:15:00 98.3 F [facility] [place] Heart Rate 2016-06-02 21:15:00 [facility] [place] Respitory Rate 2016-06-02 21:15:00 Memori al [place] Systolic (mm Hg) 2016-06-02 16:13:00 Cl rial [place] Diastolic (mm Hg) 2016-06-02 16:13:00 Mem orial [place] Respitory Rate 2016-06-02 16:13:00 Memori al [place] Temperature Oral (F) 2016-06-02 16:13:00 99.1 F [facility] [place] Heart Rate 2016-06-02 16:13:00 [facility] [place] Temperature Oral (F) 2016-06-02 13:17:00 97.9 F [facility] [place] Systolic (mm Hg) 2016-06-02 13:17:00 Cl rial [place] Diastolic (mm Hg) 2016-06-02 13:17:00 Mem orial [place] Heart Rate 2016-06-02 13:17:00 [facility] [place] Respitory Rate 2016-06-02 13:17:00 Memori al [place] BMI Calculated 2016-05-22 04:10:00 Memori al [place] Weight 2016-05-22 04:10:00 [facility] [place] Height 2016-05-22 04:10:00 152.4 cm [facility] [place] Height 2016-05-21 20:45:00 162.56 cm [facility] [place] BMI Calculated 2016-05-21 20:45:00 Memori al [place] Weight 2016-05-21 20:45:[address] [facility] Procedures Procedure Date / Time Performing Clinician Source Performed TRANSTHORACIC ECHO (TTE) 2022-07-20 14:27:00 Ernesto Madera [facility] COMPLETE [facility] TROPONIN I 2022-07-20 14:05:00 Ernesto Madera [facility] CREATINE KINASE 2022-07-20 08:36:00 Warren hanna [facility] URIC ACID 2022-07-20 08:36:00 Warren hanna [facility] FERRITIN SERUM 2022-07-20 08:36:00 Warren hanna [facility] TROPONIN I 2022-07-20 08:36:00 Warren hanna [facility] THYROID STIMULATING 2022-07-20 08:36:00 Ernesto Madera [facility] HORMONE [facility] LIPID PANEL ([id number])(TOTAL 2022-07-20 08:36:00 Ernesto Madera [facility] CHOLESTEROL, [facility] TRIGLYCERIDES, HDL) IRON PANEL 2022-07-20 08:36:00 Warren hanna [facility] SEDIMENTATION RATE 2022-07-20 08:36:00 Ernesto Madera [facility] XR CHEST 1 VW 2022-07-20 03:21:45 Carina Conde [facility] URINALYSIS 2022-07-20 03:17:00 Carina Conde [facility] LIPASE 2022-07-20 03:00:00 Carina Conde [facility] TROPONIN I 2022-07-20 03:00:00 Carina Conde [facility] COMP. METABOLIC PANEL 2022-07-20 03:00:00 Carina Conde [facility] ([id number]) [facility] CBC WITH DIFF 2022-07-20 03:00:00 Carina Conde [facility] GLYCOSYLATED HEMOGLOBIN 2022-07-20 03:00:00 Ernesto Madera [facility] (A1C) [facility] PROTHROMBIN TIME / INR 2022-07-20 03:00:00 Carina Conde [facility] ACTIVATED PARTIAL THRMPLAS 2022-07-20 03:00:00 Carina Conde [facility] N-TERMINAL PRO-BNP 2022-07-20 03:00:00 Carina Conde [facility] COVID-19 (ID NOW RAPID 2022-07-20 03:00:00 Carina Conde [facility] TESTING) Medical Branch HB ECG ROUTINE & RHYTHM 2022-07-20 02:52:48 Carina Conde [facility] STRIP Medical Branch CONSENT/REFUSAL FOR 2022-07-20 02:47:04 Doctor Jamaal, [facility] DIAGNOSIS AND TREATMENT [facility] XR KNEE 3 VW LEFT 2021-11-18 21:28:19 Ernestina Benitez [facility] NOTICE OF BILLING 2021-11-18 21:14:25 Doctor Unated, [facility] PRACTICES FOR MEDICARE [facility] PATIENTS [facility] PATIENT FINANCIAL 2021-11-18 21:13:00 Doctor Unassigned, [facility] POLICY [facility] NO SHOW OR MISSED 2021-11-18 21:12:37 Doctor Jamaal, [facility] APPOINTMENT POLICY [facility] ACKNOWLEDGEMENT NOTICE OF PRIVACY 2021-11-18 21:12:17 Doctor Unabrendaigned, [facility] PRACTICES [facility] CONSENT/REFUSAL FOR 2021-11-18 21:11:55 Doctor Jamaal, [facility] DIAGNOSIS AND TREATMENT [facility] ASSIGNMENT OF BENEFITS 2021-11-18 21:11:00 Doctor Unassigned, [facility] Procedure on [facility] Inocente colon<sup>2</sup> Endoscopy of upper [facility] Herm ihsan gastrointestinal tract and banding of esophageal varices Hysterectomy [facility] Open reduction of Memorial Kathy nn dislocation of knee with internal fixation and repair of ligament Open reduction of fracture Memor ial [place] of hand with internal fixation Operation<sup>1</sup> [facility] H ermann Urinary bladder [facility] reconstruction Encounters Start End Encounter Admission Attending Care Care Encounter Source Date/Time Date/Time Type Type Clinicians Facility Department ID 2021-11-17 Outpatient Schneider, Na STLMLC STLMLC [id number] 2 Common 12:09:45 [id number] [facility] 2021-11-17 Outpatient Schneider, Na STLMLC STLMLC [id number] 2 Common 12:03:44 [id number] [facility] 2021-11-17 Outpatient Schneider, Na STLMLC STLMLC [id number] 2 Common 11:40:04 [id number] [facility] 2021-11-17 Outpatient Schneider, Na STLMLC STLMLC [id number] 2 Common 11:28:15 [id number] [facility] 2021-11-17 Outpatient Schneider, Na STLMLC STLMLC [id number] 2 Common 11:26:20 [id number] [facility] 2021-11-17 Outpatient Schneider, Na STLMLC STLMLC [id number] 2 Common 11:07:42 [id number] [facility] 2021-11-17 Outpatient Schneider, Na STLMLC STLMLC [id number] 2 Common 11:07:04 [id number] [facility] 2023-03-13 2023-03-13 LIVIER Aj [id number]. [id number]. CLAC XYFWFH Devoted 19:00:00 20:00:00 Mick [id number] [facility] [id number] 2022-09-19 2022-09-19 Outpatient Nodal_J DMG G [id number] [facility] 00:00:00 00:00:00 [id number] Medica l Group 2022-09-19 2022-09-19 Outpatient Nodal_J DMG [facility] [id number] Devoted 00:00:00 00:00:00 [id number] Medica l Group 2022-09-19 2022-09-19 Outpatient Nodal_J DMG G [id number] Devoted 00:00:00 00:00:00 [id number] Medica l Group 2022-07-21 2022-07-21 Transition BRAVO Marks [id number] Univers 00:00:00 00:00:00 of Care Mo HOLDENY [id number] ity of [place] [id number] [facility] [id number] [facility] 403 Branch 2022-07-19 2022-07-20 Outpatient X [facility] [id number] Univers 21:47:00 18:25:00 ADNAN ity of [facility] 2022-07-19 2022-07-20 Emergency Carina Conde S [facility] [id number] Univers 21:47:00 18:25:00 Ernesto Madera MARGIE [id number] ity of [facility] [id number] [facility] [id number] [facility] 081 Branch 2022-05-31 2022-05-31 CAV Tanner Cristhian [id number]. [id number]. [id number] [facility] 19:00:00 20:00:00 [id number] [facility] [id number] 2022-05-18 2022-05-18 Outpatient Nodal_J DMG [facility] [id number] Devoted 00:00:00 00:00:00 Medica l Group 2022-05-06 2022-05-[address] [facility] [id number] [facility]oted 07:15:00 07:15:00 [id number] Medica l Group 2021-11-18 2021-11-18 Outpatient R RADIOLOGY [facility] [id number] Univers 15:10:28 23:59:00 ity of [facility] 2021-11-18 2021-11-18 Hospital Radiology [facility] [id number] Univers 15:10:28 23:59:00 Encounter MARGIE [id number] ity of [place] [id number] [facility] [id number] [facility] 807 Branch 2021-11-17 2021-11-17 Outpatient DMG DM [id number] [facility] 08:00:00 08:00:00 [id number] Medica l Group 2021-03-25 2021-03-25 Emergency EM Rowena, [facility] DEMARCUS [id number] [facility] 15:25:00 18:20:00 [facility] 2020-08-31 2020-08-31 (TEL) STLMLC STLMLC [id number] Co mmon 00:00:00 00:00:00 [facility] 2020-06-12 2020-06-12 Outpatient [facility] [id number] Common 13:14:00 13:14:[address] [facility] 2020-04-15 2020-04-15 Outpatient [facility] [id number] Common 11:20:00 11:20:[address] [facility] 2020-04-15 2020-04-15 Outpatient [facility] [id number] Common 11:00:00 11:00:[address] [place] [facility] 2020-04-03 2020-04-03 Outpatient [facility] [id number] Common 13:00:00 13:00:[address] [place] [facility] 2020-03-30 2020-03-30 Out[facility] [id number] Common 08:40:00 08:40:[address] [place] [facility] 2019-12-05 2019-12-05 [facility] [id number] Common 15:20:00 15:20:[address] [place] [facility] 2019-01-10 2019-01-10 [facility] [id number] Common 14:45:00 14:45:[address] [facility] 2018-04-04 2018-05-04 OP Therapy nullFlavo [facility] [id number] Memoria 16:30:00 04:59:00 Patients r 13 l Inocente 2018-04-04 2018-05-04 OP Therapy nullFlavo [facility] [id number] Memoria 16:30:00 04:59:00 Patients r 13 archana Brower 2018-04-04 2018-05-03 [facility], [id number]. [id number] 11:30:00 23:59:00 Christopher 1.888363. [id number] 13 Karin 3.615.62 5.62 2018-02-28 2018-03-30 OP Therapy nullFlavo [facility] [id number] Memoria 18:30:00 04:59:00 Patients r 12 archana Brower 2018-02-28 2018-03-30 OP Therapy nullFlavo [facility] [id number] Memoria 18:30:00 04:59:00 Patients r 12 archana Brower 2018-02-28 2018-03-29 [facility], 2.16.840. 2.16.840. 1. [id number] 13:30:00 23:59:00 Christopher 1.049127. [id number] 12 Karin 3.615.62 5.62 2018-01-26 2018-02-25 OP Therapy nullFlavo [facility] [id number] Memoria 15:30:00 04:59:00 Patients r Felix Brower 2018-01-26 2018-02-25 OP Therapy nullFlavo [facility] [id number] Memoria 15:30:00 04:59:00 Patients r Felix Brower 2018-01-26 2018-02-24 [facility], 2.16.840. 2.16.840. 1. [id number] 10:30:00 23:59:00 Christopher 1.258381. 204363.3.61 11 Karin 3.615.62 5.62 2017-11-27 2017-12-27 OP Therapy nullFlavo [facility] [id number] Memoria 19:53:00 05:59:00 Patients r Jonah Brower 2017-11-27 2017-12-27 OP Therapy nullFlavo [facility] [id number] Memoria 19:53:00 05:59:00 Patients r Jonah Brower 2017-11-27 2017-12-26 [facility], 2.16.840. 2.16.840. 1. [id number] 13:53:00 23:59:00 Christopher 1.519430. 257610.3.61 10 Karin 3.615.62 5.62 2017-11-27 2017-12-26 [facility], 2.16.840. 2.16.840. 1. [id number] 13:53:00 23:59:00 Christopher 1.669013. 222966.3.61 10 Karin 3.615.62 5.62 2017-10-26 2017-11-25 OP Therapy nullFlavo [facility] [id number] Memoria 17:00:00 05:59:00 Patients clayton Brower 2017-10-26 2017-11-25 OP Therapy nullFlavo [facility] [id number] Memoria 17:00:00 05:59:00 Patients clayton Brower 2017-10-26 2017-11-24 [facility] 2.16.840. 2.16.840. 1. [id number] 11:00:00 23:59:00 Benja Loving.717527. 734882.3.61 09 Karin 3.615.62 5.62 2017-09-21 2017-10-21 OP Therapy nullFlavo [facility] [id number] Memoria 17:00:00 05:59:00 Patients clayton Brower 2017-09-21 2017-10-21 OP Therapy nullFlavo [facility] [id number] Memoria 17:00:00 05:59:00 Patients clayton Brower 2017-09-21 2017-10-20 [facility] 2.16.840. 2.16.840. 1. [id number] 11:00:00 23:59:00 Christopher 1.252287. [id number] 08 Karin 3.615.62 5.62 2017-08-22 2017-09-21 OP Therapy nullFlavo [facility] [id number] Memoria 16:00:00 05:59:00 Patients clayton Brower 2017-08-22 2017-09-21 OP Therapy nullFlavo [facility] [id number] Memoria 16:00:00 05:59:00 Patients r Ramón l [place] 2017-08-22 2017-09-20 Outpatient [facility], 2.16.840. 2.16.840. 1. [id number] 11:00:00 23:59:00 Christjanelle 1.069902. 599826.3.61 07 Karin 3.615.62 5.62 2017-05-03 2017-08-23 OP Therapy nullFlavo [facility] [id number] Memoria 13:00:00 04:59:00 Patients r Inocente 03 [facility] 2017-05-03 2017-08-23 OP Therapy nullFlavo [facility] [id number] Memoria 13:00:00 04:59:00 Patients clayton [place] 03 [facility] 2017-05-03 2017-08-22 Outpatient [facility] [id number] 08:00:00 23:59:00 Christjanelle Faith [facility] 2017-08-17 2017-08-18 Day nullFlavo [facility] [id number] Memoria 11:00:00 04:59:00 Surgery r Inocente 01 [facility] 2017-08-17 2017-08-18 Day nullFlavo [facility] [id number] Memoria 11:00:00 04:59:00 Surgery r Inocente 01 [facility] 2017-08-17 2017-08-17 [facility] [id number] 06:00:00 23:59:00 Christopher Pam [facility] 2017-04-03 2017-05-03 OP Therapy nullFlavo [facility] [id number] [id number] Memoria 18:55:00 04:59:00 Patients r Inocente Martel [facility] 2017-04-03 2017-05-03 OP Therapy nullFlavo [facility] [id number] [id number] Memoria 18:55:00 04:59:00 Patients clayton Martel [facility] 2017-04-03 2017-05-02 [facility] 201 [id number] 13:55:00 23:59:00 Christopher Delonte [facility] 2017-03-06 2017-04-05 OP Therapy nullFlavo [facility] [id number] Memoria 13:00:00 04:59:00 Patients r Erie 06 [facility] 2017-03-06 2017-04-05 OP Therapy nullFlavo SMR [id number] Memoria 13:00:00 04:59:00 Patients r Elinor Urrutia [facility] 2017-03-06 2017-04-04 Outpatient Jarrell 2.16.840. 2.16.840. 1. [id number] 08:00:00 23:59:00 Sylvia archuleta 1.132625. [id number] 06 3.615.51 5.51 2017-03-02 2017-04-01 OP Therapy nullFlavo [facility] [id number] Memoria 18:00:00 04:59:00 Patients r [place] [facility] 2017-03-02 2017-04-01 OP Therapy nullFlavo [facility] [id number] Memoria 18:00:00 04:59:00 Patients r [place] [facility] 2017-03-02 2017-03-31 Outpatient [place] [id number] 13:00:00 23:59:00 Benja Frazier 2017-02-01 2017-03-03 OP Therapy nullFlavo SMR [id number] Memoria 13:00:00 04:59:00 Patients r Erie Rich [facility] 2017-02-01 2017-03-03 OP Therapy nullFlavo SMR [id number] Memoria 13:00:00 04:59:00 Patients r Erie Rich [facility] 2017-02-01 2017-03-02 Outpatient Jarrell 2.16.840. 2.16.840. 1. [id number] 08:00:00 23:59:00 Rahat archuletaa 1.456940. 105177.3.61 05 3.615.51 5.51 2017-01-30 2017-03-01 OP Therapy nullFlavo [facility] [id number] Memoria 17:58:00 04:59:00 Patients r [place] [facility] 2017-01-30 2017-03-01 OP Therapy nullFlavo [facility] [id number] [id number] Memoria 17:58:00 04:59:00 Patients r [place] [facility] 2017-01-30 2017-02-28 Outpatient [place] [id number] 12:58:00 23:59:00 Christopher 00 Karin 2017-01-02 2017-02-01 OP Therapy nullFlavo [facility] [id number] Memoria 12:56:00 04:59:00 Patients r Elinor magaña [facility] 2017-01-02 2017-02-01 OP Therapy nullFlavo SMR [id number] Memoria 12:56:00 04:59:00 Patients r Elinor magaña [facility] 2017-01-02 2017-01-31 [facility], 2.16.840. 2.16.840. 1. [id number] 07:56:00 23:59:00 Christopher 1.420343. 483166.3.61 04 Karin 3.615.51 5.51 2016-12-01 2016-12-31 OP Therapy nullFlavo [facility] [id number] Memoria 16:50:00 05:59:00 Patients r Elinor Cuevas [facility] 2016-12-01 2016-12-31 OP Therapy nullFlavo [facility] [id number] Memoria 16:50:00 05:59:00 Patients r Erie Faith [facility] 2016-12-01 2016-12-30 [facility], 2.16.840. 2.16.840. 1. [id number] 10:50:00 23:59:00 Christopher 1.307808. 183823.3.61 03 Karin 3.615.51 5.51 2016-10-27 2016-11-26 OP Therapy nullFlavo [facility] [id number] Memoria 19:45:00 05:59:00 Patients r Erie Delonte [facility] 2016-10-27 2016-11-26 OP Therapy nullFlavo SMR [id number] Memoria 19:45:00 05:59:00 Patients r Erie Delonte [facility] 2016-10-27 2016-11-25 [facility], 2.16.840. 2.16.840. 1. [id number] 13:45:00 23:59:00 Christopher 1.747732. [id number] 02 Karin 3.615.51 5.51 2016-08-16 2016-08-17 Outpt Diag nullFlavo [facility] [id number] Memoria 18:21:00 04:59:00 Services r Outpatient 01 l Imaging [facility] 2016-08-16 2016-08-17 Outpt Diag nullFlavo [facility] [id number] Memoria 18:21:00 04:59:00 Services r Outpatient 01 l Imaging [facility] 2016-08-16 2016-08-16 [facility] [id number] 13:21:00 23:59:00 Geronimo Pam [facility] 2016-08-16 2016-08-16 Outpatient [facility] [place] [id number] Memoria 14:00:00 14:00:00 01 l [place] 2016-08-16 2016-08-16 Outpatient [facility] IE [id number] Memoria 14:00:00 14:00:00 01 l [place] 2016-07-19 2016-07-20 Outpt Diag nullFlavo [facility] [id number] Memoria 18:39:00 04:59:00 Services r Outpatient 00 l Imaging [facility] 2016-07-19 2016-07-20 Outpt Diag nullFlavo [facility] [id number] Memoria 18:39:00 04:59:00 Services r Outpatient 00 l Imaging [facility] 2016-07-19 2016-07-19 Outpatient Juan [facility] [id number] 13:39:00 23:59:00 Benja Frazier 2016-05-21 2016-06-02 Inpatient nullFlavo [facility] [id number] Memoria 20:44:00 23:00:00 r [place] 00 [facility] 2016-05-21 2016-06-02 Inpatient nullFlavo [facility] [id number] Memoria 20:44:00 23:00:00 r [place] 00 [facility] 2016-05-21 2016-06-02 Outpatient Alan [facility] [id number] 15:44:00 18:00:00 Victorina 00 [place] Results Test Description Test Time Test Comments Results Result Comments Source Transthoracic echo (TTE) 2022-07-20 21:58:34 Test Item Value Reference Range Interpretation Comme nts Height (test code = 0824286796) in Weight (test code = 2103670471) lbs Systolic BP (test code = 9366901585) mmHg Diastolic BP (test code = 2005871784) mmHg Heart Rate (test code = 5060751113) bpm BSA (test code = 1560527020) 1.61 m2 Ao root diam (test code = 1212230183) 3.10 cm Aortic root (test code = 7838016763) 3.1 cm Ao root annulus (test code = 3.1 cm 5789453401) LVOT diameter (test code = 1507049254) 1.81 cm LVOT area (test code = 1851587241) 2.60 cm2 LVIDD (test code = 5687998351) 3.80 cm Left Ventricular End Diastolic Volume 62.8 mL by Teichholz Method (test code = 3729690) IVS (test code = 7027250438) 1.14 cm Interventricular Septum Diastolic 1.14 cm Thickness by 2D (test code = 1501463) LVPWD (test code = 7092778854) 1.14 cm PW (test code = 6541893916) 1.14 cm 0.6-1.1 EF(Teich) (test code = 1767956099) 61.50 % LVIDS (test code = 2984226778) 2.60 cm Left Ventricular End Systolic Volume 24.2 mL by Teichholz Method (test code = 5166102) FS (test code = 6640194202) 33 % EF - 2D (test code = 84851592) 61.50 % LA size (test code = 4342610625) 3.4 cm TR Peak Sunita (test code = 4909593841) 252.1 cm/s Triscuspid Valve Regurgitation Peak mmHg Gradient (test code = 8775994450) LAV(MOD-sp4) (test code = 9149669584) 44.70 mL E wave decelartion time (test code = 0.18 s 3456622471) MV Peak E Sunita (test code = 8426952244) 92.5 cm/s MV stenosis pressure 1/2 time (test 55.1 ms code = 9209042451) MV Peak A Sunita (test code = 3285620914) 43.4 cm/s E/A ratio (test code = 4063053918) ratio MV Prop V (test code = 2828805733) 44.80 cm/s MV E/e' septal (test code = 13.0 cm/s 4064835221) Tapse (test code = 4303010995) 2.25 cm LVOT stroke volume (test code = 73.90 cm3 1583759397) LVOT peak sunita (test code = 4424184738) 112.5 cm/s LVOT mn grad (test code = 1959645266) mmHg AV LVOT peak gradient (test code = mmHg 9928503959) LVOT peak VTI (test code = 5512401144) 28.8 cm LV V1 mean (test code = 1743374434) 78.20 cm/s Aortic valve mean velocity (test code 105.8 cm/s = 0752973377) Ao peak sunita (test code = 5079491647) 157.9 cm/s Ao VTI (test code = 1542199561) 34.9 cm AV area by cont VTI (test code = 2.1 cm2 4102730166) AV area peak sunita (test code = 1.8 cm2 3916785039) Ao max PG (test code = 8819132598) 10.00 mm[Hg] AV peak gradient (test code = mmHg 5253627281) AV valve area (test code = 6234471313) 2.12 cm2 AV mean gradient (test code = mmHg 2004572792) Radiology Study observation (narrative) (test code = 53849-7) ADRIANA (test code = ADRIANA) ?Left?Ventricle: Left ventricle size is normal. Normal wall thickness. Normal wall motion. Normal systolic function with a visually estimated EF of 65 - 70%. Indeterminate diastolic func tion. ?Tricuspid?Valve: Right ventricular systolic pressure is normal. ?RA pressure is 0-5 mmHg. Left VentricleLeft ventricle size is normal. Normal wall thickness. Normal wall motion. Normal systolic function with a visually estimated EF of 65 - 70%. Indeterminate diastolic function.Right VentricleRight ventricle size is normal. Normal systolic function.Left AtriumLeft atrium size is normal.Right AtriumRight atrium size is normal.Mitral ValveMitral valve structure is normal. Trace transvalvular regurgitation.Tricuspid ValveTricuspid valve structure is normal. Trace transvalvular regurgitation. Right ventricular systolic pressure is normal. RA pressure is 0-5 mmHg.Aortic ValveTricuspid. Mildly thickened cusps.Pulmonic ValveNot well visualized.Ascending AortaNormal sized aorta.PericardiumThe pericardium is normal.Study DetailsStudy quality was adequate. A complete echocardiogram was performed using 2D, color flow Doppler and spectral Doppler. [facility] [id number] 15:15:30 Test Item Value Reference Interpretation Comments Range TROPONIN I (test See_Comment [Automated code = 6729818635) message] The system which generated this result transmitted reference range : <=0.034. The reference range was not used to interpret this result as normal/abnormal . ADRIANA (test code = Reference (Normal) ADRIANA) Range (defined by the 99th percentile reference limit): <= 0.034 ng/mL Note: Cardiac troponin begins to rise 3-4 hours after the onset of ischemia. Repeat in 4-6 hours if the sample was drawn within 3-4 hours of the onset of the symptom and found normal. Diagnosis of myocardial injury is made with acute changes in cTn concentrations with at least one serial sample above the 99th percentile upper reference limit (URL), taken together with the patient's clinical presentation. Biotin has been reported to cause a negative bias, interpret results relative to patient's use of biotin. Lab Interpretation Normal (test code = 83780-2) [facility] CenterUA RFLX MICR CULT IF [id number] 16:22:00 Test Item Value Reference Range Interpretation Comments [...] LEUU) UA WBC (test code = WBCU) 3-5 #WBC/HPF 0-2 A UA RBC (test code = RBCU) 0-2 #RBC/HPF 0-2 UA BACTERIA (test code = 1+ /HPF NONE-TRACE A BACU) UA SQUAMOUS CELLS (test code OCCASIONAL /LPF NONE-TRACE = SQU) UA COARSE GRANULAR CAST (test 0-2 /LPF NONE SEEN A code = CGU) Indication for culture: Dysuria/FrequencyTHROMBOPLASTIN TIME [id number] 16:20:00 Test Item Value Reference Range Interpretation Comments THROMBOPLASTIN TIME 33.3 SECONDS 23.8-34.8 N INTERPRE TATIVE PARTIAL (test code = DATA: erapeutic PTT) range: Unfractionated heparin:55 - 80 seconds Argatroban:1.5 to 3 times the basel ine PTT BASIC METABOLIC [id number] 16:20:00 Test Item Value Reference Range Interpretation [...] New = CA) Reference Range Nov 2020 BASIC METABOLIC [id number] 16:20:00 Test Item Value Reference Range Interpretation [...] (test code = mg/dL 8.7-10.4 CA) PROTHROMBIN [id number] 16:20:00 Test Item Value Reference Range Interpretation Comments PROTHROMBIN TIME 11.2 SECONDS 10.3-12.9 N PATIENT (test code = PTP) INTERNATIONAL 0.99 INR UNIT 0.9-1.11 N The INR is us eful only NORMAL RATIO (test for monit oring code = INR) anticoagulant therapy.It may be unreliable in t he initial phase o f antigoagulation and in unstable patien ts. Indication for Anticoagulation Recommended INR 1. Prevention of v enous thomboembolism 2.0-3.0in high- risk patients; treat ment of venousthrombosi s and pulmonary embol ism aftera course o f heparin; preven tion of systemicembolis m in a variety of cond itions, including atria l fibrillation an d prothetic tissu e heart valves, 2. Pros thetic mechanical hear t valves; 2.5-3.5recurren t systemic emboli sm. PROTHROMBIN [id number] 16:17:00 Test Item Value Reference Range Interpretation Comments PROTHROMBIN TIME 11.2 SECONDS 10.3-12.9 N PATIENT (test code = PTP) INTERNATIONAL 0.99 INR UNIT 0.9-1.11 N The INR is us eful only NORMAL RATIO (test for monit oring code = INR) anticoagulant therapy.It may be unreliable in t he initial phase o f antigoagulation and in unstable patien ts. Indication for Anticoagulation Recommended INR 1. Prevention of v enous thomboembolism 2.0-3.0in high- risk patients; treat ment of venousthrombosi s and pulmonary embol ism aftera course o f heparin; preven tion of systemicembolis m in a variety of cond itions, including atria l fibrillation an d prothetic tissu e heart valves, 2. Pros thetic mechanical hear t valves; 2.5-3.5recurren t systemic emboli sm. THROMBOPLASTIN TIME [id number] 16:17:00 Test Item Value Reference Range Interpretation Comments THROMBOPLASTIN TIME PARTIAL (test SECONDS 23.8-34.8 code = PTT) - CT HEAD/BRAIN W/O [id number] 16:10:00 [facility] : 1950 Sex: FPatient Name: CESILIA MOTA Unit No: [id number] EXAMS: CPT CODE: [id number] CT HEAD/BRAIN W/O CONT [id number] EXAM: CT Head without contrast Location: A1 HISTORY: Severe headache COMPARISON: None available. TECHNIQUE: Multiple transaxial images of the brain were obtained without intravenous contrast. Images were reformatted to create coronal and sagittal reconstructions. One or more of the following dose reduction techniques were used: Automated exposure control, adjustment of the mA and/or kV according to patient size, and/or utilization of iterative reconstruction technique. DLP: 891 mGy-cm.FINDINGS: There is no acute intracranial hemorrhage. There is no mass, mass effect, midline shift orextra- axial fluid collection. Brain parenchymal volume and ventricular caliber are within normal limits. Brumfield-white differentiation is maintained. There is no evidence for acute major vessel infarct. There are areas of decreased attenuation within subcortical deep white matter which are nonspecific. P aranasal sinuses, mastoid air cells and visualized orbital contents are within normal limits. Osseous structures are within normal limits. IMPRESSION: No acute intracranial abnormality. Chronic small vessel ischemic white matter disease. at 1610 Reported and signed by: BEAN WOMACK M.D. CC: Joseph Guaman MD Technologist: Torrie Escobedo,RT; SHYANN MARTINEZ RT(R),(CT) CTDI: 55.7 DLP: 891 Trscr Dt/Tm: 03/25/2021 (1610) by:[email or web address] Printed Date/Time: 03/25/2021 (1160) Name: CESILIA MOTA [facility] Phys: Joseph Craven MD [address] : 1950 Age: 70 Sex: [place] [address] Loc: P.ERS ExamDate: 03/25/2021 Status: REG ER PH: FAX: PAGE [...] 0.0-0.20 N UA RFLX MICR CULT IF [id number] 16:08:00 Test Item Value Reference Range Interpretation [...] /LPF NONE-TRACE = SQU) Indication for culture: Dysuria/[id number] 12:05:00 Test Item Value Reference Range Interpretation Comments AGAP (test code = AGAP) 11.2 10.0-20.[address] [facility]NgkwflfRYJFJOIEIIYZ9128-28-92 12:05:00 Test Item Value Reference Range Interpretation Comments eGFR (test code = eGFR) [address] [facility] HospitalOxhocqkHPDZOSWHYMYH5630-91-98 12:05:00 Test Item Value Reference Range Interpretation Comments Glucose Lvl (test code = Glucose Lvl) 100 70-[address] [facility] HospitalLliwbdrUWTIDIAHRTVH3330-71-82 12:05:00 Test Item Value Reference Range Interpretation Comments BUN (test code = BUN) 11 7-[address] [facility] HospitalDlyukqjUICYPPKVSXDX7965-57-42 12:05:00 Test Item Value Reference Range Interpretation Comments Creatinine Lvl (test code = Creatinine 0.65 0.50-1.40 Lvl) [facility] HospitalMpnauyrPWNPMCLLLUJI0614-21-20 12:05:00 Test Item Value Reference Range Interpretation Comments CO2 (test code = CO2) 26 24-[address] [facility] HospitalFjalbviDVJBQXSJTTWX9020-93-53 12:05:00 Test Item Value Reference Range Interpretation Comments Sodium Lvl (test code = Sodium Lvl) 141 135-[address] [facility] HospitalHdotxjfHVHRLFSTHKEV9896-67-64 12:05:00 Test Item Value Reference Range Interpretation Comments Potassium Lvl (test code = Potassium 4.2 3.5-5.1 Lvl) [facility] HospitalWhzfadtJJRSPNCMOTAM9024-85-64 12:05:00 Test Item Value Reference Range Interpretation Comments Calcium Lvl (test code = Calcium Lvl) 9.0 8.5-10.[address] [facility] HospitalRxsjcuaTGWTISSKQZVJ0867-66-63 12:05:00 Test Item Value Reference Range Interpretation Comments Chloride Lvl (test code = Chloride Lvl) 108 95-[address] [facility] HospitalBjlqfazNRQMBHXIBRUV2581-06-94 12:05:00 Test Item Value Reference Range Interpretation Comments AGAP (test code = AGAP) 11.2 10.0-20.[address] [facility] HospitalDqwkyerLIXMZQEMWBXK8651-08-42 12:05:00 Test Item Value Reference Range Interpretation Comments eGFR (test code = eGFR) [address] [facility] HospitalDgnvzfkGVDJIYSPDUCJ1707-64-39 12:05:00 Test Item Value Reference Range Interpretation Comments Glucose Lvl (test code = Glucose Lvl) 100 70-[address] [facility] HospitalUpwxizuLFLJDKKMLAKF1931-30-93 12:05:00 Test Item Value Reference Range Interpretation Comments BUN (test code = BUN) 11 - [facility] HospitalPuypyfdWITGIMIUSBQW3389-83-73 12:05:00 Test Item Value Reference Range Interpretation Comments Creatinine Lvl (test code = Creatinine 0.65 0.50-1.40 Lvl) [facility] HospitalAmqshdsJBVMVBWUUQUA7651-00-50 12:05:00 Test Item Value Reference Range Interpretation Comments CO2 (test code = CO2) -[address] [facility] HospitalGknwcarOIAYBTGEWLJI9929-54-49 12:05:00 Test Item Value Reference Range Interpretation Comments Sodium Lvl (test code = Sodium Lvl) 141 135-[address] [facility] HospitalWoodwfnLRPITXTCHQEO4171-00-46 12:05:00 Test Item Value Reference Range Interpretation Comments Potassium Lvl (test code = Potassium 4.2 3.5-5.1 Lvl) [facility] HospitalEirzwewRZMZSHPJTTVO6032-26-16 12:05:00 Test Item Value Reference Range Interpretation Comments Calcium Lvl (test code = Calcium Lvl) 9.0 8.5-10.[address] [facility] HospitalSlosubsPPGTKOHVUWNZ0356-14-92 12:05:00 Test Item Value Reference Range Interpretation Comments Chloride Lvl (test code = Chloride Lvl) 108 95-[address] [facility] [id number] 10:15:00 Test Item Value Reference Range Interpretation Comments Phosphorus (test code = Phosphorus) 3.5 2.5-4.[address] [facility] [id number] 10:15:00 Test Item Value Reference Range Interpretation Comments Magnesium Lvl (test code = Magnesium 2.5 1.8-2.4 Lvl) [facility] HospitalWrdeuadJSPFPJREWEMR6325-89-84 10:15:00 Test Item Value Reference Range Interpretation Comments AGAP (test code = AGAP) 10.3 10.0-20.[address] [facility] HospitalSuakqiaOXBPGGRJNKOZ4352-93-23 10:15:00 Test Item Value Reference Range Interpretation Comments eGFR (test code = eGFR) [address] [facility] HospitalYtwupljNVOXMRJCNHBP5099-45-52 10:15:00 Test Item Value Reference Range Interpretation Comments Calcium Lvl (test code = Calcium Lvl) 8.4 8.5-10.[address] [facility] HospitalHhsennjQNUMMFSHVTJD8724-39-46 10:15:00 Test Item Value Reference Range Interpretation Comments Sodium Lvl (test code = Sodium Lvl) 140 135-[address] [facility] HospitalAsfkdwnLPFGXQSZLKXD6072-82-50 10:15:00 Test Item Value Reference Range Interpretation Comments Creatinine Lvl (test code = Creatinine 0.65 0.50-1.40 Lvl) [facility] HospitalUbsibyrHQSBSJNJWKFP9513-02-38 10:15:00 Test Item Value Reference Range Interpretation Comments CO2 (test code = CO2) 29 24-[address] [facility] HospitalPabyqbyGUBGVAUZIZUR2298-50-21 10:15:00 Test Item Value Reference Range Interpretation Comments Chloride Lvl (test code = Chloride Lvl) 105 95-[address] [facility] HospitalVrlvbjkZBVXCAQWIALB7063-71-67 10:15:00 Test Item Value Reference Range Interpretation Comments Potassium Lvl (test code = Potassium 4.3 3.5-5.1 Lvl) [facility] HospitalNyyswhbWVCGJOTUSLRG6060-24-58 10:15:00 Test Item Value Reference Range Interpretation Comments Glucose Lvl (test code = Glucose Lvl) 107 70-[address] [facility] HospitalZwujtgzNHZZLALZYQMP6224-69-41 10:15:00 Test Item Value Reference Range Interpretation Comments BUN (test code = BUN) 10 7-22 [facility]DkgucxrJADWHKQQDL9011-43-04 10:15:00 Test Item Value Reference Range Interpretation Comments Monocytes # (test code 0.4 See_Comment [Aut omated message] The = Monocytes #) system which generated this result tra nsmitted reference range : <=0.8. The reference r lowell was not used to int erpret this result as normal/abnormal . [facility] CenterGihvuuuNLLZDNWPHX0770-01-68 10:15:00 Test Item Value Reference Range Interpretation Comments Eosinophils # (test code 0.9 See_Comment [A utomated message] The = Eosinophils #) system whic h generated this result tra nsmitted reference range : <=0.5. The reference r lowell was not used to int erpret this result as normal/abnormal . [facility] CenterDkanjkrYHZXRTSMCY3600-02-56 10:15:00 Test Item Value Reference Range Interpretation Comments Eosinophils (test code = 11.6 See_Comment [A utomated message] The Eosinophils) system which ge nerated this result tra nsmitted reference range : <=4.0. The reference r lowell was not used to int erpret this result as normal/abnormal . [facility] CenterXzipywoXMVSLKUVTM9036-40-26 10:15:00 Test Item Value Reference Range Interpretation Comments Monocytes (test code = Monocytes) 5.8 2.0-12.0 [facility] CenterJxjnkdaDYATHNWKOX7573-32-92 10:15:00 Test Item Value Reference Range Interpretation Comments Lymphocytes (test code = Lymphocytes) 11.9 20.0-40.0 [facility] CenterMhabpsnPBCUVXVVVK9239-81-02 10:15:00 Test Item Value Reference Range Interpretation Comments Segs (test code = Segs) 70.5 45.0-75.0 [facility] CenterMwqjmeeVQVMAFFITM0737-89-72 10:15:00 Test Item Value Reference Range Interpretation Comments Basophils (test code = 0.2 See_Comment [Aut omated message] The Basophils) system which ge nerated this result tra nsmitted reference range : <=1.0. The reference r lowell was not used to int erpret this result as normal/abnormal . [facility] CenterNitanrzNIMAHSCROP2086-79-52 10:15:00 Test Item Value Reference Range Interpretation Comments Segs-Bands # (test code = Segs-Bands #) 5.4 1.5-8.1 [facility] CenterKeuxhtwVTBYJXBCOW5241-05-89 10:15:00 Test Item Value Reference Range Interpretation Comments Lymphocytes # (test code = Lymphocytes 0.9 1.0-5.5 #) [facility] CenterLvztsnnOSCVVZMNCA0017-43-41 10:15:00 Test Item Value Reference Range Interpretation Comments Hct (test code = Hct) 28.5 36.0-48.0 [facility] CenterUadutsbNKTQIWLCDL6775-91-76 10:15:00 Test Item Value Reference Range Interpretation Comments Hgb (test code = Hgb) 9.6 12.0-16.0 [facility] CenterImeafweVDJSXZDFWH1722-57-55 10:15:00 Test Item Value Reference Range Interpretation Comments MCV (test code = MCV) 93.6 80.0-98.0 [facility] CenterVaumrujQJCZCBRGYQ9851-14-69 10:15:00 Test Item Value Reference Range Interpretation Comments RBC (test code = RBC) 3.04 4.20-5.40 [facility] CenterElqcyobRERWIYUWAK1784-38-06 10:15:00 Test Item Value Reference Range Interpretation Comments MCHC (test code = MCHC) 33.6 32.0-36.0 [facility]bangxtGUCWTJHNXY0350-02-03 10:15:00 Test Item Value Reference Range Interpretation Comments RDW (test code = RDW) 15.0 11.5-14.5 [facility]intKlokhzeTGLREQIGOY4441-71-86 10:15:00 Test Item Value Reference Range Interpretation Comments Platelet (test code = Platelet) 507 133-450 [facility] CenterYqzbkwxAROBRYAEYI5455-33-46 10:15:00 Test Item Value Reference Range Interpretation Comments MPV (test code = MPV) 6.9 7.4-10.4 [facility] CenterYqgbqjcCVIZJVKRRT9360-39-40 10:15:00 Test Item Value Reference Range Interpretation Comments WBC (test code = WBC) 7.7 3.7-10.4 [facility] CenterQiqdwomDRAQKPXKYT9536-95-45 10:15:00 Test Item Value Reference Range Interpretation Comments MCH (test code = MCH) 31.4 pg 27.0-31.[address] [facility] [address] BMHZV5048-12-91 10:15:00 Test Item Value Reference Range Interpretation Comments Phosphorus (test code = Phosphorus) 3.5 2.5-4.[address] [facility]CHE[facility] BAJCN8928-33-71 10:15:00 Test Item Value Reference Range Interpretation Comments Magnesium Lvl (test code = Magnesium 2.5 1.8-2.4 Lvl) [facility]XtxavshQNZHHEQSJLRL7103-20-00 10:15:00 Test Item Value Reference Range Interpretation Comments AGAP (test code = AGAP) 10.3 10.0-20.[address] [facility] HospitalBlvlswcZVWJOTTPQCZV7337-25-31 10:15:00 Test Item Value Reference Range Interpretation Comments eGFR (test code = eGFR) [address] [facility] HospitalZotzwlxKQOKERVTUDXI2098-80-16 10:15:00 Test Item Value Reference Range Interpretation Comments Calcium Lvl (test code = Calcium Lvl) 8.4 8.5-10.[address] [facility] HospitalMpbwwouDBWZSSSTEURT5936-63-80 10:15:00 Test Item Value Reference Range Interpretation Comments Sodium Lvl (test code = Sodium Lvl) 140 135-[address] [facility] HospitalBbbvqsiUGVVDBSIANVO6807-92-69 10:15:00 Test Item Value Reference Range Interpretation Comments Creatinine Lvl (test code = Creatinine 0.65 0.50-1.40 Lvl) [facility] HospitalVntyhhzUWEIXAJQQWEK3182-21-98 10:15:00 Test Item Value Reference Range Interpretation Comments CO2 (test code = CO2) 29 24-[address] [facility] HospitalYxbnloiLIFKFJUJMSGZ8184-49-64 10:15:00 Test Item Value Reference Range Interpretation Comments Chloride Lvl (test code = Chloride Lvl) 105 95-[address] [facility] HospitalNtlyhyhEMRMIMESXYYH2947-60-58 10:15:00 Test Item Value Reference Range Interpretation Comments Potassium Lvl (test code = Potassium 4.3 3.5-5.1 Lvl) [facility] HospitalXylwqbnJNBFWICUZUEL9193-62-57 10:15:00 Test Item Value Reference Range Interpretation Comments Glucose Lvl (test code = Glucose Lvl) 107 70-[address] [facility] HospitalHhkdslsFYMFEZWCYVCA6534-95-27 10:15:00 Test Item Value Reference Range Interpretation Comments BUN (test code = BUN) 10 7-22 [facility] CenterVvzmiwyVKNSGZUZCM0013-79-28 10:15:00 Test Item Value Reference Range Interpretation Comments Monocytes # (test code 0.4 See_Comment [Aut omated message] The = Monocytes #) system which generated this result tra nsmitted reference range : <=0.8. The reference r lowell was not used to int erpret this result as normal/abnormal . [facility] CenterPezkndnEBQIDVWAKK4031-28-25 10:15:00 Test Item Value Reference Range Interpretation Comments Eosinophils # (test code 0.9 See_Comment [A utomated message] The = Eosinophils #) system whic h generated this result tra nsmitted reference range : <=0.5. The reference r lowell was not used to int erpret this result as normal/abnormal . [facility] CenterYueqjhsWPBRVALUZQ3729-16-61 10:15:00 Test Item Value Reference Range Interpretation Comments Eosinophils (test code = 11.6 See_Comment [A utomated message] The Eosinophils) system which ge nerated this result tra nsmitted reference range : <=4.0. The reference r lowell was not used to int erpret this result as normal/abnormal . [facility] CenterHwseaiwKLZTHZCLIY3056-74-82 10:15:00 Test Item Value Reference Range Interpretation Comments Monocytes (test code = Monocytes) 5.8 2.0-12.0 [facility] CenterJajekeeOPMEMVLOHW1550-09-27 10:15:00 Test Item Value Reference Range Interpretation Comments Lymphocytes (test code = Lymphocytes) 11.9 20.0-40.0 [facility] CenterJrzoicpAPLFNUCCTV9492-28-74 10:15:00 Test Item Value Reference Range Interpretation Comments Segs (test code = Segs) 70.5 45.0-75.0 [facility] CenterTqsattrYDTKVFUHPM9089-29-13 10:15:00 Test Item Value Reference Range Interpretation Comments Basophils (test code = 0.2 See_Comment [Aut omated message] The Basophils) system which ge nerated this result tra nsmitted reference range : <=1.0. The reference r lowell was not used to int erpret this result as normal/abnormal . [facility] CenterRsuvbamIKAOVNPZVH4935-64-34 10:15:00 Test Item Value Reference Range Interpretation Comments Segs-Bands # (test code = Segs-Bands #) 5.4 1.5-8.1 [facility] CenterUvunefvTXXXMPJQNO4022-22-20 10:15:00 Test Item Value Reference Range Interpretation Comments Lymphocytes # (test code = Lymphocytes 0.9 1.0-5.5 #) [facility] CenterJucibchEODBLZSAMP4280-06-73 10:15:00 Test Item Value Reference Range Interpretation Comments Hct (test code = Hct) 28.5 36.0-48.0 [facility] CenterYgjozhuHZMNDYROJH1900-37-88 10:15:00 Test Item Value Reference Range Interpretation Comments Hgb (test code = Hgb) 9.6 12.0-16.0 [facility] CenterXzjpgjgZWKVKALSZN1309-58-49 10:15:00 Test Item Value Reference Range Interpretation Comments MCV (test code = MCV) 93.6 80.0-98.0 [facility] CenterOceyukvCETFUGWCKQ9498-99-61 10:15:00 Test Item Value Reference Range Interpretation Comments RBC (test code = RBC) 3.04 4.20-5.40 [facility] CenterMssbjnsYAOOBYDRBY4382-94-01 10:15:00 Test Item Value Reference Range Interpretation Comments MCHC (test code = MCHC) 33.6 32.0-36.0 [facility] CenterTflnmfdEAXXACMPOI9670-45-62 10:15:00 Test Item Value Reference Range Interpretation Comments RDW (test code = RDW) 15.0 11.5-14.5 [facility] CenterOgnlntjMWEGYXENEJ5639-42-48 10:15:00 Test Item Value Reference Range Interpretation Comments Platelet (test code = Platelet) 507 986-284 [facility] CenterGomsuakZIMPZGNOSI5140-96-08 10:15:00 Test Item Value Reference Range Interpretation Comments MPV (test code = MPV) 6.9 7.4-10.4 [facility] CenterHqrnwpqFTPLZQQJUA5765-85-35 10:15:00 Test Item Value Reference Range Interpretation Comments WBC (test code = WBC) 7.7 3.7-10.4 [facility] CenterTvpzkrfITPPWBLJHM1050-58-04 10:15:00 Test Item Value Reference Range Interpretation Comments MCH (test code = MCH) 31.4 pg 27.0-31.0 [facility]2016-08-10 08:20:00 Test Item Value Reference Range Interpretation Comments Phosphorus (test code = Phosphorus) 3.4 2.5-4.5 [facility]2016-08-10 08:20:00 Test Item Value Reference Range Interpretation Comments eGFR (test code = eGFR) 90 [facility]2016-08-10 08:20:00 Test Item Value Reference Range Interpretation Comments Calcium Lvl (test code = Calcium Lvl) 7.3 8.5-10.5 [facility]2016-08-10 08:20:00 Test Item Value Reference Range Interpretation Comments CO2 (test code = CO2) 23 24-32 [facility]2016-08-10 08:20:00 Test Item Value Reference Range Interpretation Comments Chloride Lvl (test code = Chloride Lvl) 103 95-109 [facility]2016-08-10 08:20:00 Test Item Value Reference Range Interpretation Comments Creatinine Lvl (test code = Creatinine 0.70 0.50-1.40 Lvl) [facility]2016-08-10 08:20:00 Test Item Value Reference Range Interpretation Comments Potassium Lvl (test code = Potassium 4.4 3.5-5.1 Lvl) [facility]2016-08-10 08:20:00 Test Item Value Reference Range Interpretation Comments Sodium Lvl (test code = Sodium Lvl) 137 135-145 [facility]2016-08-10 08:20:00 Test Item Value Reference Range Interpretation Comments Glucose Lvl (test code = Glucose Lvl) 96 70-99 [facility]2016-08-10 08:20:00 Test Item Value Reference Range Interpretation Comments BUN (test code = BUN) 5 7-22 [facility]2016-08-10 08:20:00 Test Item Value Reference Range Interpretation Comments AGAP (test code = AGAP) 15.4 10.0-20.0 [facility]2016-08-10 08:20:00 Test Item Value Reference Range Interpretation Comments Magnesium Lvl (test code = Magnesium 2.1 1.8-2.4 Lvl) [facility] CenterObrdgdkPGMKYXZMSF5511-30-43 08:20:00 Test Item Value Reference Range Interpretation Comments MPV (test code = MPV) 6.9 7.4-10.4 [facility] CenterLkhuffkDVALDDEOQU9452-33-75 08:20:00 Test Item Value Reference Range Interpretation Comments RDW (test code = RDW) 14.7 11.5-14.5 [facility] CenterUnecmyoZZTMZKLRVQ1863-25-32 08:20:00 Test Item Value Reference Range Interpretation Comments MCHC (test code = MCHC) 33.4 32.0-36.0 [facility] CenterOcockgySPELUUQQBO4884-44-31 08:20:00 Test Item Value Reference Range Interpretation Comments MCH (test code = MCH) 31.5 pg 27.0-31.0 [facility] CenterSdxxpvnJADMKGEMIB6989-28-18 08:20:00 Test Item Value Reference Range Interpretation Comments Hgb (test code = Hgb) 9.9 12.0-16.0 [facility] CenterEelvoyeEYLQBOXBRX6244-54-11 08:20:00 Test Item Value Reference Range Interpretation Comments RBC (test code = RBC) 3.13 4.20-5.40 [facility] CenterRjdajnnIYYSGZNLXC9664-96-53 08:20:00 Test Item Value Reference Range Interpretation Comments Platelet (test code = Platelet) 459 781-450 [facility] CenterCildnqlIWKHIVNFUA0430-05-56 08:20:00 Test Item Value Reference Range Interpretation Comments MCV (test code = MCV) 94.1 80.0-98.0 [facility] CenterHstbwglHVJDRBXKHS0490-38-23 08:20:00 Test Item Value Reference Range Interpretation Comments Hct (test code = Hct) 29.5 36.0-48.0 [facility] CenterPwgcuerGADDMDHSBF1970-18-73 08:20:00 Test Item Value Reference Range Interpretation Comments WBC (test code = WBC) 7.6 3.7-10.4 [facility] CenterEugctmiPLTMBAXYQB4995-44-15 08:20:00 Test Item Value Reference Range Interpretation Comments Segs (test code = Segs) 68.3 45.0-75.0 [facility] CenterNwfwwtwSBOGKMMUTL2765-75-26 08:20:00 Test Item Value Reference Range Interpretation Comments Lymphocytes (test code = Lymphocytes) 14.6 20.0-40.0 [facility] CenterTprnoqoJAHWIZUZNY9227-53-20 08:20:00 Test Item Value Reference Range Interpretation Comments Eosinophils (test code = 9.8 See_Comment [A utomated message] The Eosinophils) system which ge nerated this result tra nsmitted reference range : <=4.0. The reference r lowell was not used to int erpret this result as normal/abnormal . [facility] CenterCouboljQVHBOLHCXK3390-18-64 08:20:00 Test Item Value Reference Range Interpretation Comments Monocytes (test code = Monocytes) 7.0 2.0-12.0 [facility] CenterSlaedcbEOMZJJGBIZ5534-22-51 08:20:00 Test Item Value Reference Range Interpretation Comments Lymphocytes # (test code = Lymphocytes 1.1 1.0-5.5 #) [facility] CenterXodfeynDFRJNSUIVB6878-52-36 08:20:00 Test Item Value Reference Range Interpretation Comments Basophils (test code = 0.3 See_Comment [Aut omated message] The Basophils) system which ge nerated this result tra nsmitted reference range : <=1.0. The reference r lowell was not used to int erpret this result as normal/abnormal . [facility] CenterLokestrMTIVKJJEFK5208-16-50 08:20:00 Test Item Value Reference Range Interpretation Comments Monocytes # (test code 0.5 See_Comment [Aut omated message] The = Monocytes #) system which generated this result tra nsmitted reference range : <=0.8. The reference r lowell was not used to int erpret this result as normal/abnormal . [facility] CenterRnynezkDRVBOAXKEH1989-12-01 08:20:00 Test Item Value Reference Range Interpretation Comments Segs-Bands # (test code = Segs-Bands #) 5.2 1.5-8.1 [facility] CenterChpazfkZTRWORTUHM3218-03-92 08:20:00 Test Item Value Reference Range Interpretation Comments Eosinophils # (test code 0.7 See_Comment [A utomated message] The = Eosinophils #) system [employer] h generated this result tra nsmitted reference range : <=0.5. The reference r lowell was not used to int erpret this result as normal/abnormal . [facility]2016-08-10 08:20:00 Test Item Value Reference Range Interpretation Comments Phosphorus (test code = Phosphorus) 3.4 2.5-4.5 [facility]2016-08-10 08:20:00 Test Item Value Reference Range Interpretation Comments eGFR (test code = eGFR) 90 [facility]2016-08-10 08:20:00 Test Item Value Reference Range Interpretation Comments Calcium Lvl (test code = Calcium Lvl) 7.3 8.5-10.5 [facility]2016-08-10 08:20:00 Test Item Value Reference Range Interpretation Comments CO2 (test code = CO2) 23 24-32 [facility]2016-08-10 08:20:00 Test Item Value Reference Range Interpretation Comments Chloride Lvl (test code = Chloride Lvl) 103 95-109 [facility]2016-08-10 08:20:00 Test Item Value Reference Range Interpretation Comments Creatinine Lvl (test code = Creatinine 0.70 0.50-1.40 Lvl) [facility]2016-08-10 08:20:00 Test Item Value Reference Range Interpretation Comments Potassium Lvl (test code = Potassium 4.4 3.5-5.1 Lvl) [facility]2016-08-10 08:20:00 Test Item Value Reference Range Interpretation Comments Sodium Lvl (test code = Sodium Lvl) 137 135-145 [facility]2016-08-10 08:20:00 Test Item Value Reference Range Interpretation Comments Glucose Lvl (test code = Glucose Lvl) 96 70-99 [facility]2016-08-10 08:20:00 Test Item Value Reference Range Interpretation Comments BUN (test code = BUN) 5 7-22 [facility]2016-08-10 08:20:00 Test Item Value Reference Range Interpretation Comments AGAP (test code = AGAP) 15.4 10.0-20.0 [facility]2016-08-10 08:20:00 Test Item Value Reference Range Interpretation Comments Magnesium Lvl (test code = Magnesium 2.1 1.8-2.4 Lvl) [facility] CenterTwkyfwdBCXYPRMVUC9704-32-50 08:20:00 Test Item Value Reference Range Interpretation Comments MPV (test code = MPV) 6.9 7.4-10.4 [facility] CenterWpsgnzqPGXQYIKIBC1281-52-95 08:20:00 Test Item Value Reference Range Interpretation Comments RDW (test code = RDW) 14.7 11.5-14.5 [facility] CenterZumkdwhSQTGBPTMST2230-96-99 08:20:00 Test Item Value Reference Range Interpretation Comments MCHC (test code = MCHC) 33.4 32.0-36.0 [facility] CenterNryfofjFUFXYVRGKA5292-11-51 08:20:00 Test Item Value Reference Range Interpretation Comments MCH (test code = MCH) 31.5 pg 27.0-31.0 [facility] CenterJzlpxqlJYZRITCVKC1803-01-68 08:20:00 Test Item Value Reference Range Interpretation Comments Hgb (test code = Hgb) 9.9 12.0-16.0 [facility] CenterXhxjzmnGGSMWNDDRF8828-74-46 08:20:00 Test Item Value Reference Range Interpretation Comments RBC (test code = RBC) 3.13 4.20-5.40 [facility] CenterPnmbtmwNZZVRSGGHH7764-08-79 08:20:00 Test Item Value Reference Range Interpretation Comments Platelet (test code = Platelet) 459 133-450 [facility] CenterPdcwvrcXWZAOEBHRG8688-96-65 08:20:00 Test Item Value Reference Range Interpretation Comments MCV (test code = MCV) 94.1 80.0-98.0 [facility] CenterFwhejccOXLLEKIVOP9557-04-79 08:20:00 Test Item Value Reference Range Interpretation Comments Hct (test code = Hct) 29.5 36.0-48.0 [facility] CenterTwrnkxwXEZRMODLTZ2452-53-97 08:20:00 Test Item Value Reference Range Interpretation Comments WBC (test code = WBC) 7.6 3.7-10.4 [facility] CenterFtesflhGGHXQTNGMH9193-73-34 08:20:00 Test Item Value Reference Range Interpretation Comments Segs (test code = Segs) 68.3 45.0-75.0 [facility] CenterPrjyptcJKOSQVISWP9042-51-11 08:20:00 Test Item Value Reference Range Interpretation Comments Lymphocytes (test code = Lymphocytes) 14.6 20.0-40.0 [facility] CenterVbxrizsBMFPBWFIEG7038-83-72 08:20:00 Test Item Value Reference Range Interpretation Comments Eosinophils (test code = 9.8 See_Comment [A utomated message] The Eosinophils) system which ge nerated this result tra nsmitted reference range : <=4.0. The reference r lowell was not used to int erpret this result as normal/abnormal . [facility] CenterPxnbfcqJTBNWZRVTP1623-17-74 08:20:00 Test Item Value Reference Range Interpretation Comments Monocytes (test code = Monocytes) 7.0 2.0-12.0 [facility] CenterEomoyzpVHWDARVZTT8566-04-85 08:20:00 Test Item Value Reference Range Interpretation Comments Lymphocytes # (test code = Lymphocytes 1.1 1.0-5.5 #) [facility] CenterLdgbtvdMWYEIVXMPG0620-11-63 08:20:00 Test Item Value Reference Range Interpretation Comments Basophils (test code = 0.3 See_Comment [Aut omated message] The Basophils) system which ge nerated this result tra nsmitted reference range : <=1.0. The reference r lowell was not used to int erpret this result as normal/abnormal . [facility] CenterHujmkpyIOGZEJCRJZ3768-07-30 08:20:00 Test Item Value Reference Range Interpretation Comments Monocytes # (test code 0.5 See_Comment [Aut omated message] The = Monocytes #) system which generated this result tra nsmitted reference range : <=0.8. The reference r lowell was not used to int erpret this result as normal/abnormal . [facility] CenterIuedrqkGUBTHAMUVB7875-81-09 08:20:00 Test Item Value Reference Range Interpretation Comments Segs-Bands # (test code = Segs-Bands #) 5.2 1.5-8.1 [facility] CenterDiaqcswHYIFSKDOYD5564-79-31 08:20:00 Test Item Value Reference Range Interpretation Comments Eosinophils # (test code 0.7 See_Comment [A utomated message] The = Eosinophils #) system whic h generated this result tra nsmitted reference range : <=0.5. The reference r lowell was not used to int erpret this result as normal/abnormal . [facility]2016-08-09 10:09:00 Test Item Value Reference Range Interpretation Comments Glucose Lvl (test code = Glucose Lvl) 107 70-99 [facility]2016-08-09 10:09:00 Test Item Value Reference Range Interpretation Comments Chloride Lvl (test code = Chloride Lvl) 107 95-109 [facility]2016-08-09 10:09:00 Test Item Value Reference Range Interpretation Comments Sodium Lvl (test code = Sodium Lvl) 140 135-145 [facility]2016-08-09 10:09:00 Test Item Value Reference Range Interpretation Comments Potassium Lvl (test code = Potassium 4.7 3.5-5.1 Lvl) [facility]2016-08-09 10:09:00 Test Item Value Reference Range Interpretation Comments BUN (test code = BUN) 5 7-22 [facility]2016-08-09 10:09:00 Test Item Value Reference Range Interpretation Comments Creatinine Lvl (test code = Creatinine 0.58 0.50-1.40 Lvl) [facility]2016-08-09 10:09:00 Test Item Value Reference Range Interpretation Comments Calcium Lvl (test code = Calcium Lvl) 8.5 8.5-10.5 [facility]2016-08-09 10:09:00 Test Item Value Reference Range Interpretation Comments CO2 (test code = CO2) 28 24-32 [facility]2016-08-09 10:09:00 Test Item Value Reference Range Interpretation Comments eGFR (test code = eGFR) 96 [facility]2016-08-09 10:09:00 Test Item Value Reference Range Interpretation Comments AGAP (test code = AGAP) 9.7 10.0-20.0 [facility]2016-08-09 10:09:00 Test Item Value Reference Range Interpretation Comments Magnesium Lvl (test code = Magnesium 2.3 1.8-2.4 Lvl) [facility]2016-08-09 10:09:00 Test Item Value Reference Range Interpretation Comments Phosphorus (test code = Phosphorus) 3.5 2.5-4.5 [facility]ldfzzhMNJJRONMMG1233-14-01 10:09:00 Test Item Value Reference Range Interpretation Comments Eosinophils # (test code 0.6 See_Comment [A utomated message] The = Eosinophils #) system whic h generated this result tra nsmitted reference range : <=0.5. The reference r lowell was not used to int erpret this result as normal/abnormal . [facility] CenterJwgwyrrXWAQLSDGSH6053-41-36 10:09:00 Test Item Value Reference Range Interpretation Comments Eosinophils (test code = 8.7 See_Comment [A utomated message] The Eosinophils) system which ge nerated this result tra nsmitted reference range : <=4.0. The reference r lowell was not used to int erpret this result as normal/abnormal . [facility] CenterNdlqascPHJIBKLKWN9690-73-65 10:09:00 Test Item Value Reference Range Interpretation Comments Lymphocytes (test code = Lymphocytes) 17.7 20.0-40.0 [facility] CenterNcfrbvvYSPKRAKBSK4218-87-96 10:09:00 Test Item Value Reference Range Interpretation Comments Segs (test code = Segs) 65.0 45.0-75.0 [facility] CenterUswzfimNAQERKWREX1414-99-65 10:09:00 Test Item Value Reference Range Interpretation Comments Monocytes (test code = Monocytes) 8.4 2.0-12.0 [facility] CenterFvyobnfNGFSSPTWFK6949-46-68 10:09:00 Test Item Value Reference Range Interpretation Comments Lymphocytes # (test code = Lymphocytes 1.1 1.0-5.5 #) [facility] [id number] 10:09:00 Test Item Value Reference Range Interpretation Comments Segs-Bands # (test code = Segs-Bands #) 4.2 1.5-8.1 [facility] CenterPzzhcjqJCIXXFHAAY6706-02-93 10:09:00 Test Item Value Reference Range Interpretation Comments Basophils (test code = 0.2 See_Comment [Aut omated message] The Basophils) system which ge nerated this result tra nsmitted reference range : <=1.0. The reference r lowell was not used to int erpret this result as normal/abnormal . [facility] CenterHggcakjBQRUNVYTEY3787-11-07 10:09:00 Test Item Value Reference Range Interpretation Comments Monocytes # (test code 0.5 See_Comment [Aut omated message] The = Monocytes #) system which generated this result tra nsmitted reference range : <=0.8. The reference r lowell was not used to int erpret this result as normal/abnormal . [facility] CenterLwymjtlXJRQTRTLOR5194-21-65 10:09:00 Test Item Value Reference Range Interpretation Comments RDW (test code = RDW) 14.5 11.5-14.5 [facility] CenterTiyqvwtBOALDMUUKG2724-53-34 10:09:00 Test Item Value Reference Range Interpretation Comments MCHC (test code = MCHC) 34.1 32.0-36.0 [facility] CenterDgxgfdaFUCSSDEQHD7288-76-21 10:09:00 Test Item Value Reference Range Interpretation Comments Hct (test code = Hct) 27.8 36.0-48.0 [facility] CenterUgcyrokCZNBPUUNPR2634-18-15 10:09:00 Test Item Value Reference Range Interpretation Comments MCH (test code = MCH) 31.7 pg 27.0-31.0 [facility] CenterGezhzgxCPDZFACGLS7845-54-96 10:09:00 Test Item Value Reference Range Interpretation Comments MCV (test code = MCV) 93.1 80.0-98.0 [facility] CenterNdtsihvNGVNAMVAFZ5794-34-45 10:09:00 Test Item Value Reference Range Interpretation Comments Platelet (test code = Platelet) 410 133-450 [facility] CenterKcnwtkxKZRSZMRXDG8531-88-31 10:09:00 Test Item Value Reference Range Interpretation Comments MPV (test code = MPV) 6.9 7.4-10.4 [facility] CenterGujlvwmANBRWGEAWF8709-10-92 10:09:00 Test Item Value Reference Range Interpretation Comments RBC (test code = RBC) 2.99 4.20-5.40 [facility] CenterImnsldpBQUOOPOAOV6005-97-38 10:09:00 Test Item Value Reference Range Interpretation Comments Hgb (test code = Hgb) 9.5 12.0-16.0 [facility] CenterCcribrdVSKJZKCEFL1700-70-60 10:09:00 Test Item Value Reference Range Interpretation Comments WBC (test code = WBC) 6.5 3.7-10.4 [facility]2016-08-09 10:09:00 Test Item Value Reference Range Interpretation Comments Glucose Lvl (test code = Glucose Lvl) 107 70-99 [facility]2016-08-09 10:09:00 Test Item Value Reference Range Interpretation Comments Chloride Lvl (test code = Chloride Lvl) 107 95-109 [facility]2016-08-09 10:09:00 Test Item Value Reference Range Interpretation Comments Sodium Lvl (test code = Sodium Lvl) 140 135-145 [facility]2016-08-09 10:09:00 Test Item Value Reference Range Interpretation Comments Potassium Lvl (test code = Potassium 4.7 3.5-5.1 Lvl) [facility]2016-08-09 10:09:00 Test Item Value Reference Range Interpretation Comments BUN (test code = BUN) 5 7-22 [place] [id number] 10:09:00 Test Item Value Reference Range Interpretation Comments Creatinine Lvl (test code = Creatinine 0.58 0.50-1.40 Lvl) [place] [id number] 10:09:00 Test Item Value Reference Range Interpretation Comments Calcium Lvl (test code = Calcium Lvl) 8.5 8.5-10.5 [facility]2016-08-09 10:09:00 Test Item Value Reference Range Interpretation Comments CO2 (test code = CO2) 28 24-32 [facility]2016-08-09 10:09:00 Test Item Value Reference Range Interpretation Comments eGFR (test code = eGFR) 96 [facility]2016-08-09 10:09:00 Test Item Value Reference Range Interpretation Comments AGAP (test code = AGAP) 9.7 10.0-20.0 [facility]2016-08-09 10:09:00 Test Item Value Reference Range Interpretation Comments Magnesium Lvl (test code = Magnesium 2.3 1.8-2.4 Lvl) [facility]2016-08-09 10:09:00 Test Item Value Reference Range Interpretation Comments Phosphorus (test code = Phosphorus) 3.5 2.5-4.5 [facility] CenterKyeruthUDNXHRMQHL5619-39-23 10:09:00 Test Item Value Reference Range Interpretation Comments Eosinophils # (test code 0.6 See_Comment [A utomated message] The = Eosinophils #) system whic h generated this result tra nsmitted reference range : <=0.5. The reference r lowell was not used to int erpret this result as normal/abnormal . [facility] CenterJraiqpxNAOPEXDTQA7388-76-74 10:09:00 Test Item Value Reference Range Interpretation Comments Eosinophils (test code = 8.7 See_Comment [A utomated message] The Eosinophils) system which ge nerated this result tra nsmitted reference range : <=4.0. The reference r lowell was not used to int erpret this result as normal/abnormal . [facility] CenterKhanfhjXIBCWACMCM7667-70-36 10:09:00 Test Item Value Reference Range Interpretation Comments Lymphocytes (test code = Lymphocytes) 17.7 20.0-40.0 [facility] CenterLkesazkMWBFCDMKSX9813-76-69 10:09:00 Test Item Value Reference Range Interpretation Comments Segs (test code = Segs) 65.0 45.0-75.0 [facility] CenterHrctgxtJHVGPXQFSO7628-21-40 10:09:00 Test Item Value Reference Range Interpretation Comments Monocytes (test code = Monocytes) 8.4 2.0-12.0 [facility] CenterBpmdybqOXKZIDYKOV5667-03-57 10:09:00 Test Item Value Reference Range Interpretation Comments Lymphocytes # (test code = Lymphocytes 1.1 1.0-5.5 #) [facility] CenterFlvqhqxLBWUKNWMCH5371-72-24 10:09:00 Test Item Value Reference Range Interpretation Comments Segs-Bands # (test code = Segs-Bands #) 4.2 1.5-8.1 [facility] CenterCztlonpOATFTJKOSH4420-31-19 10:09:00 Test Item Value Reference Range Interpretation Comments Basophils (test code = 0.2 See_Comment [Aut omated message] The Basophils) system which ge nerated this result tra nsmitted reference range : <=1.0. The reference r lowell was not used to int erpret this result as normal/abnormal . [facility] CenterWzjmssnMXGUXKNYOD0228-42-02 10:09:00 Test Item Value Reference Range Interpretation Comments Monocytes # (test code 0.5 See_Comment [Aut omated message] The = Monocytes #) system which generated this result tra nsmitted reference range : <=0.8. The reference r lowell was not used to int erpret this result as normal/abnormal . [facility] CenterAzrcxofSBJWANTJZU8010-05-30 10:09:00 Test Item Value Reference Range Interpretation Comments RDW (test code = RDW) 14.5 11.5-14.5 [facility] CenterTlxzdvuMZAQKOEEHW6834-52-83 10:09:00 Test Item Value Reference Range Interpretation Comments MCHC (test code = MCHC) 34.1 32.0-36.0 [facility] CenterEwkiwsdNHOFUYEDCG0460-31-04 10:09:00 Test Item Value Reference Range Interpretation Comments Hct (test code = Hct) 27.8 36.0-48.0 [facility] CenterFtwfrvoKYFZMWAILO6908-77-78 10:09:00 Test Item Value Reference Range Interpretation Comments MCH (test code = MCH) 31.7 pg 27.0-31.0 [facility] CenterHxeslheUPIMJRGKJW9443-67-52 10:09:00 Test Item Value Reference Range Interpretation Comments MCV (test code = MCV) 93.1 80.0-98.0 [facility] CenterTfwzmeuDTNDPSXUHB5482-17-14 10:09:00 Test Item Value Reference Range Interpretation Comments Platelet (test code = Platelet) 410 133-450 [facility] CenterMcnhujtCTZBYDVDTL8271-44-51 10:09:00 Test Item Value Reference Range Interpretation Comments MPV (test code = MPV) 6.9 7.4-10.4 [facility] CenterHegfkokSKWTBBHKKE4852-54-78 10:09:00 Test Item Value Reference Range Interpretation Comments RBC (test code = RBC) 2.99 4.20-5.40 [facility] CenterLqhkshfEMDSWRYYWH9556-78-38 10:09:00 Test Item Value Reference Range Interpretation Comments Hgb (test code = Hgb) 9.5 12.0-16.0 [facility] CenterWighkkiHHXBJASJXO2538-89-54 10:09:00 Test Item Value Reference Range Interpretation Comments WBC (test code = WBC) 6.5 3.7-10.4 [facility]2016-08-08 07:56:00 Test Item Value Reference Range Interpretation Comments Ca Ion WB (test code = Ca Ion WB) 1.13 1.05-1.25 [facility]2016-08-08 07:56:00 Test Item Value Reference Range Interpretation Comments Ca Norm WB (test code = Ca Norm WB) 1.10 1.05-1.25 [facility]2016-08-08 07:56:00 Test Item Value Reference Range Interpretation Comments Ca Ion WB (test code = Ca Ion WB) 1.13 1.05-1.25 [facility]2016-08-08 07:56:00 Test Item Value Reference Range Interpretation Comments Ca Norm WB (test code = Ca Norm WB) 1.10 1.05-1.25 [facility]2016-08-04 09:00:00 Test Item Value Reference Range Interpretation Comments Ca Ion WB (test code = Ca Ion WB) 1.04 1.05-1.25 [facility] [id number] 09:00:00 Test Item Value Reference Range Interpretation Comments Ca Norm WB (test code = Ca Norm WB) 1.05 1.05-1.25 [facility] [id number] 09:00:00 Test Item Value Reference Range Interpretation Comments Ca Ion WB (test code = Ca Ion WB) 1.04 1.05-1.25 [facility] [id number] 09:00:00 Test Item Value Reference Range Interpretation Comments Ca Norm WB (test code = Ca Norm WB) 1.05 1.05-1.25 [facility] [id number] 21:39:00 Test Item Value Reference Range Interpretation Comments ABO/Rh (test code = ABO/Rh) O POS [facility] [employer] [facility] [employer] [id number] 21:39:00 Test Item Value Reference Range Interpretation Comments Antibody Scrn (test Negative (05/25/16 4:39 code = Antibody Scrn) PM) [facility] CenterJmncifzZSUYXTTCLZ9811-31-96 21:39:00 Test Item Value Reference Range Interpretation Comments PTT (test code = PTT) 29.5 s 22.9-35.8 [facility] CenterBprylkrCNOKKQCXYD7712-98-30 21:39:00 Test Item Value Reference Range Interpretation Comments PT (test code = PT) 13.6 s 12.0-14.7 [facility] CenterBfokccnUAYCONILRG0791-22-09 21:39:00 Test Item Value Reference Range Interpretation Comments INR (test code = INR) 1.01 0.85-1.17 [facility] [employer] [facility] [employer] [id number] 21:39:00 Test Item Value Reference Range Interpretation Comments ABO/Rh (test code = ABO/Rh) O POS [facility] [employer] [id number] 21:39:00 Test Item Value Reference Range Interpretation Comments Antibody Scrn (test Negative (05/25/16 4:39 code = Antibody Scrn) PM) [facility] HospitalCkboioeGUUVTGHNGZ1421-60-36 21:39:00 Test Item Value Reference Range Interpretation Comments PTT (test code = PTT) 29.5 s 22.9-35.8 [facility]FvporouKDLYHCVQSD2816-70-73 21:39:00 Test Item Value Reference Range Interpretation Comments PT (test code = PT) 13.6 s 12.0-14.7 [facility]RANCMNBWPU9837-95-94 21:39:00 Test Item Value Reference Range Interpretation Comments INR (test code = INR) 1.01 0.85-1.17 [facility]annPARATHYROID [id number] 08:39:00 Test Item Value Reference Range Interpretation Comments Ca Ion WB (test code = Ca Ion WB) 1.07 1.05-1.25 [facility] [id number] 08:39:00 Test Item Value Reference Range Interpretation Comments Ca Norm WB (test code = Ca Norm WB) 1.07 1.05-1.25 [facility]PAR[facility] [id number] 08:39:00 Test Item Value Reference Range Interpretation Comments Ca Ion WB (test code = Ca Ion WB) 1.07 1.05-1.25 [facility] CenterannPARATHYROID [id number] 08:39:00 Test Item Value Reference Range Interpretation Comments Ca Norm WB (test code = Ca Norm WB) 1.07 1.05-1.25 [facility] [id number] 02:00:00 Test Item Value Reference Range Interpretation Comments U Mehnaz Scr (test code Negative *NA*(05/22/16 = U Mehnaz Scr) 9:00 PM) [facility] [id number] 02:00:00 Test Item Value Reference Range Interpretation Comments U Amph Scr (test code Negative *NA*(05/22/16 = U Amph Scr) 9:00 PM) [facility] [id number] 02:00:00 Test Item Value Reference Range Interpretation Comments U Opiate Scr (test Positive *ABN*(05/22/16 code = U Opiate Scr) 9:00 PM) [facility] [id number] 02:00:00 Test Item Value Reference Range Interpretation Comments U Cannab Scr (test Negative *NA*(05/22/16 code = U Cannab Scr) 9:00 PM) [facility] [id number] 02:00:00 Test Item Value Reference Range Interpretation Comments U Cocaine Scr (test Negative *NA*(05/22/16 code = U Cocaine Scr) 9:00 PM) [facility] [id number] 02:00:00 Test Item Value Reference Range Interpretation Comments U Benzodia Scr (test Negative *NA*(05/22/16 code = U Benzodia Scr) 9:00 PM) [facility] [id number] 02:00:00 Test Item Value Reference Range Interpretation Comments U Phencyc Scr (test Negative *NA*(05/22/16 code = U Phencyc Scr) 9:00 PM) [facility]annDR[facility] [id number] 02:00:00 Test Item Value Reference Range Interpretation Comments UDS Note (test code = See Note (05/22/16 9:00 UDS Note) PM) [facility]annUR[facility] AND [id number] 02:00:00 Test Item Value Reference Range Interpretation Comments UA Urobilinogen (test code = UA <=1.0 mg/dL 0.1-1.0 Urobilinogen) [facility]ann[facility] [id number] 02:00:00 Test Item Value Reference Range Interpretation Comments UA Bacteria (test code = UA Occasional /HPF Bacteria) [facility] [id number] 02:00:00 Test Item Value Reference Range Interpretation Comments UA WBC (test code = 7 See_Comment [Automa flor message] The UA WBC) system which ge nerated this result transmit flor reference range : <=5. The reference range was not used to interpr et this result as vance l/abnormal. [facility] [id number] 02:00:00 Test Item Value Reference Range Interpretation Comments UA Leuk Est (test code Large *ABN*(05/22/16 = UA Leuk Est) 9:00 PM) [facility] [id number] 02:00:00 Test Item Value Reference Range Interpretation Comments UA Nitrite (test code Negative (05/22/16 9:00 = UA Nitrite) PM) [facility] [id number] 02:00:00 Test Item Value Reference Range Interpretation Comments UA Mucus (test code = UA Mucus) Few /LPF [facility]ann[facility] [id number] 02:00:00 Test Item Value Reference Range Interpretation Comments UA Sq Epi (test code = UA Sq Epi) None [facility]en [facility] [id number] 02:00:00 Test Item Value Reference Range Interpretation Comments UA Bili (test code = Negative *NA*(05/22/16 UA Bili) 9:00 PM) [facility] [id number] 02:00:00 Test Item Value Reference Range Interpretation Comments UA Ketones (test code = UA Negative mg/dL Ketones) [facility] [id number] 02:00:00 Test Item Value Reference Range Interpretation Comments UA Protein (test code = UA Negative mg/dL Protein) [facility]ann[facility] [id number] 02:00:00 Test Item Value Reference Range Interpretation Comments UA Glucose (test code = UA Negative mg/dL Glucose) [facility]ann[facility] [id number] 02:00:00 Test Item Value Reference Range Interpretation Comments UA Turbidity (test code = Clear (05/22/16 9:00 UA Turbidity) PM) [facility] [id number] 02:00:00 Test Item Value Reference Range Interpretation Comments UA Color (test code = Light Yellow UA Color) *NA*(05/22/16 9:00 PM) [facility] [id number] 02:00:00 Test Item Value Reference Range Interpretation Comments UA Blood (test code = Negative (05/22/16 9:00 UA Blood) PM) [facility] AND [id number] 02:00:00 Test Item Value Reference Range Interpretation Comments UA Spec Grav (test code = UA Spec Grav) 1.013 [facility] [id number] 02:00:00 Test Item Value Reference Range Interpretation Comments UA pH (test code = UA pH) 8.0 5.0-8.0 [facility]annDR[facility] [id number] 02:00:00 Test Item Value Reference Range Interpretation Comments U Mehnaz Scr (test code Negative *NA*(05/22/16 = U Mehnaz Scr) 9:00 PM) [facility]annDR[facility] [id number] 02:00:00 Test Item Value Reference Range Interpretation Comments U Amph Scr (test code Negative *NA*(05/22/16 = U Amph Scr) 9:00 PM) [facility]annDR[facility] [id number] 02:00:00 Test Item Value Reference Range Interpretation Comments U Opiate Scr (test Positive *ABN*(05/22/16 code = U Opiate Scr) 9:00 PM) [facility]DR[facility] [id number] 02:00:00 Test Item Value Reference Range Interpretation Comments U Cannab Scr (test Negative *NA*(05/22/16 code = U Cannab Scr) 9:00 PM) [facility]DR[facility] [id number] 02:00:00 Test Item Value Reference Range Interpretation Comments U Cocaine Scr (test Negative *NA*(05/22/16 code = U Cocaine Scr) 9:00 PM) [facility] [id number] 02:00:00 Test Item Value Reference Range Interpretation Comments U Benzodia Scr (test Negative *NA*(05/22/16 code = U Benzodia Scr) 9:00 PM) [facility] [id number] 02:00:00 Test Item Value Reference Range Interpretation Comments U Phencyc Scr (test Negative *NA*(05/22/16 code = U Phencyc Scr) 9:00 PM) [facility] [id number] 02:00:00 Test Item Value Reference Range Interpretation Comments UDS Note (test code = See Note (05/22/16 9:00 UDS Note) PM) [facility] [id number] 02:00:00 Test Item Value Reference Range Interpretation Comments UA Urobilinogen (test code = UA <=1.0 mg/dL 0.1-1.0 Urobilinogen) [facility] [id number] 02:00:00 Test Item Value Reference Range Interpretation Comments UA Bacteria (test code = UA Occasional /HPF Bacteria) [facility]ann[facility] [id number] 02:00:00 Test Item Value Reference Range Interpretation Comments UA WBC (test code = 7 See_Comment [Automa flor message] The UA WBC) system which ge nerated this result transmit flor reference range : <=5. The reference range was not used to interpr et this result as vance l/abnormal. [facility] [id number] 02:00:00 Test Item Value Reference Range Interpretation Comments UA Leuk Est (test code Large *ABN*(05/22/16 = UA Leuk Est) 9:00 PM) [facility] AND [id number] 02:00:00 Test Item Value Reference Range Interpretation Comments UA Nitrite (test code Negative (05/22/16 9:00 = UA Nitrite) PM) [facility] AND [id number] 02:00:00 Test Item Value Reference Range Interpretation Comments UA Mucus (test code = UA Mucus) Few /LPF [facility] AND [id number] 02:00:00 Test Item Value Reference Range Interpretation Comments UA Sq Epi (test code = UA Sq Epi) None Seen [facility] AND [id number] 02:00:00 Test Item Value Reference Range Interpretation Comments UA Bili (test code = Negative *NA*(05/22/16 UA Bili) 9:00 PM) [facility] AND [id number] 02:00:00 Test Item Value Reference Range Interpretation Comments UA Ketones (test code = UA Negative mg/dL Ketones) [facility] AND [id number] 02:00:00 Test Item Value Reference Range Interpretation Comments UA Protein (test code = UA Negative mg/dL Protein) [facility] AND [id number] 02:00:00 Test Item Value Reference Range Interpretation Comments UA Glucose (test code = UA Negative mg/dL Glucose) [facility] AND [id number] 02:00:00 Test Item Value Reference Range Interpretation Comments UA Turbidity (test code = Clear (05/22/16 9:00 UA Turbidity) PM) [facility] AND [id number] 02:00:00 Test Item Value Reference Range Interpretation Comments UA Color (test code = Light Yellow UA Color) *NA*(05/22/16 9:00 PM) [facility] AND [id number] 02:00:00 Test Item Value Reference Range Interpretation Comments UA Blood (test code = Negative (05/22/16 9:00 UA Blood) PM) [facility] AND [id number] 02:00:00 Test Item Value Reference Range Interpretation Comments UA Spec Grav (test code = UA Spec Grav) 1.013 [facility] AND [id number] 02:00:00 Test Item Value Reference Range Interpretation Comments UA pH (test code = UA pH) 8.0 5.0-8.0 [facility] [id number] 19:28:00 Test Item Value Reference Range Interpretation Comments CK MB (test code = CK MB) 15.1 0.5-3.6 [facility] [employer] [id number] 19:28:00 Test Item Value Reference Range Interpretation Comments CK MB Index (test 0.6 See_Comment [Automate d message] The code = CK MB Index) system w [employer] generated this result transmit flor reference range : <=2.5. The reference range was not used to interpr et this result as vance l/abnormal. [facility] Szl2016-07-31 19:28:00 Test Item Value Reference Range Interpretation Comments Total CK (test code = Total CK) 2407 12-191 [facility]2016-07-31 19:28:00 Test Item Value Reference Range Interpretation Comments Troponin-T (test code no gt See_Comment [Auto mated message] The = Troponin-T) system which g enerated this result transmit flor reference range : <=0.100. The reference r lowell was not used to interpr et this result as vance l/abnormal. [facility]2016-07-31 19:28:00 Test Item Value Reference Range Interpretation Comments Troponin-I (test code no gt See_Comment [Auto mated message] The = Troponin-I) system which g enerated this result transmit flor reference range : <=0.40. The reference r lowell was not used to interpr et this result as vance l/abnormal. [facility]2016-07-31 19:28:00 Test Item Value Reference Range Interpretation Comments CK MB (test code = CK MB) 15.1 0.5-3.6 [facility] [id number] 19:28:00 Test Item Value Reference Range Interpretation Comments CK MB Index (test 0.6 See_Comment [Automate d message] The code = CK MB Index) system w [employer] generated this result transmit flor reference range : <=2.5. The reference range was not used to interpr et this result as vance l/abnormal. [facility]2016-07-31 19:28:00 Test Item Value Reference Range Interpretation Comments Total CK (test code = Total CK) 247 [facility]2016-07-31 19:28:00 Test Item Value Reference Range Interpretation Comments Troponin-T (test code no gt See_Comment [Auto mated message] The = Troponin-T) system which g enerated this result transmit flor reference range : <=0.100. The reference r lowell was not used to interpr et this result as vance l/abnormal. [facility]2016-07-31 19:28:00 Test Item Value Reference Range Interpretation Comments Troponin-I (test code no gt See_Comment [Auto mated message] The = Troponin-I) system which g enerated this result transmit flor reference range : <=0.40. The reference r lowell was not used to interpr et this result as vance l/abnormal. [facility]2016-07-31 14:13:00 Test Item Value Reference Range Interpretation Comments CK MB Index (test 0.8 See_Comment [Automate d message] The code = CK MB Index) system w [facility] generated this result transmit flor reference range : <=2.5. The reference range was not used to interpr et this result as vance l/abnormal. [facility] Szl2016-07-31 14:13:00 Test Item Value Reference Range Interpretation Comments CK MB (test code = CK MB) 21.5 0.5-3.6 [facility] 14:13:00 Test Item Value Reference Range Interpretation Comments Troponin-T (test code no gt See_Comment [Auto mated message] The = Troponin-T) system which g enerated this result transmit flor reference range : <=0.100. The reference r lowell was not used to interpr et this result as vance l/abnormal. [facility] Szl2016-07-31 14:13:00 Test Item Value Reference Range Interpretation Comments Total CK (test code = Total CK) 8272 [facility] Szl2016-07-31 14:13:00 Test Item Value Reference Range Interpretation Comments Troponin-I (test code no gt See_Comment [Auto mated message] The = Troponin-I) system which g enerated this result transmit flor reference range : <=0.40. The reference r lowell was not used to interpr et this result as vance l/abnormal. [facility] Szl2016-07-31 14:13:00 Test Item Value Reference Range Interpretation Comments CK MB Index (test 0.8 See_Comment [Automate d message] The code = CK MB Index) system w [facility] generated this result transmit flor reference range : <=2.5. The reference range was not used to interpr et this result as vance l/abnormal. [facility] 14:13:00 Test Item Value Reference Range Interpretation Comments CK MB (test code = CK MB) 21.5 0.5-3.[address] [facility] [address] HospitalBioDetegoJ[facility] [id number] 14:13:00 Test Item Value Reference Range Interpretation Comments Troponin-T (test code no gt See_Comment [Auto mated message] The = Troponin-T) system which g enerated this result transmit flor reference range : <=0.100. The reference r lowell was not used to interpr et this result as vance l/abnormal. [facility] SoutheastCadence Biomedical [id number] 14:13:00 Test Item Value Reference Range Interpretation Comments Total CK (test code = Total CK) 2657 12-[address] [facility] Hospital[id number] 14:13:00 Test Item Value Reference Range Interpretation Comments Troponin-I (test code no gt See_Comment [Auto mated message] The = Troponin-I) system which g enerated this result transmit flor reference range : <=0.40. The reference r lowell was not used to interpr et this result as vance l/abnormal. [facility] SoutheastVantage Data [id number] 13:27:00 Test Item Value Reference Range Interpretation Comments Lactic Acid Lvl (test code = Lactic 1.0 0.5-2.2 Acid Lvl) [facility] SoutheastConnexin Software [id number] 13:27:00 Test Item Value Reference Range Interpretation Comments Lactic Acid Lvl (test code = Lactic 1.0 0.5-2.2 Acid Lvl) [facility] HospitalXlyrdqsIGQSPJUQTF6427-26-04 05:34:00 Test Item Value Reference Range Interpretation Comments PTT (test code = PTT) 28.6 s 22.9-35.[address] [facility] [address] [facility] H[id number] 05:34:00 Test Item Value Reference Range Interpretation Comments INR (test code = INR) 1.05 0.85-1.[address] [facility] [address] [facility] H[id number] 05:34:00 Test Item Value Reference Range Interpretation Comments PT (test code = PT) 14.0 s 12.0-14.[address] [facility] [address] Hospit[id number] 05:34:00 Test Item Value Reference Range Interpretation Comments PTT (test code = PTT) 28.6 s 22.9-35.[address] [facility] Hospit[id number] 05:34:00 Test Item Value Reference Range Interpretation Comments INR (test code = INR) 1.05 0.85-1.[address] [facility] [address] HospitalPmhthcnKVFOXGWFXP9272-55-31 05:34:00 Test Item Value Reference Range Interpretation Comments PT (test code = PT) 14.0 s 12.0-14.7 [facility] [employer] [id number] 22:15:00 Test Item Value Reference Range Interpretation Comments Antibody Scrn (test Negative (05/21/16 5:15 code = Antibody Scrn) PM) [facility] [employer] [id number] 22:15:00 Test Item Value Reference Range Interpretation Comments ABO/Rh (test code = ABO/Rh) O POS [facility] [employer] [id number] 22:15:00 Test Item Value Reference Range Interpretation Comments Antibody Scrn (test Negative (05/21/16 5:15 code = Antibody Scrn) PM) [facility] [employer] [id number] 22:15:00 Test Item Value Reference Range Interpretation Comments ABO/Rh (test code = ABO/Rh) O POS [facility] FoodTextCARDIAC [id number] 21:20:00 Test Item Value Reference Range Interpretation Comments Troponin-I (test code no gt See_Comment [Auto mated message] The = Troponin-I) system which g enerated this result transmit flor reference range : <=0.40. The reference r lowell was not used to interpr et this result as vance l/abnormal. [employer] TechnologiesCHEM [id number] 21:20:00 Test Item Value Reference Range Interpretation Comments Lactic Acid Lvl (test code = Lactic 2.4 0.5-2.2 Acid Lvl) [facility] Hos[id number] 21:20:00 Test Item Value Reference Range Interpretation Comments PT (test code = PT) 13.0 s 12.0-14.7 [id number] 21:20:00 Test Item Value Reference Range Interpretation Comments INR (test code = INR) 0.95 0.85-1.17 [facility]Fli[id number] 21:20:00 Test Item Value Reference Range Interpretation Comments PTT (test code = PTT) 25.3 s 22.9-35.8 [facility] Hospit[id number] 21:20:00 Test Item Value Reference Range Interpretation Comments Ethanol Lvl (test code = Ethanol Lvl) no gt [facility] HospitalIixsqbqEQPDTLPENO9685-51-02 21:20:00 Test Item Value Reference Range Interpretation Comments Etoh (%) (test code = Etoh (%)) no gt [facility] HospitalCARDIAC [id number] 21:20:00 Test Item Value Reference Range Interpretation Comments Troponin-I (test code no gt See_Comment [Auto mated message] The = Troponin-I) system which g enerated this result transmit flor reference range : <=0.40. The reference r lowell was not used to interpr et this result as vance l/abnormal. [facility] HospitalCHEM [id number] 21:20:00 Test Item Value Reference Range Interpretation Comments Lactic Acid Lvl (test code = Lactic 2.4 0.5-2.2 Acid Lvl) [facility] CenterLrfljkdWSMLERCCQE0776-40-24 21:20:00 Test Item Value Reference Range Interpretation Comments PT (test code = PT) 13.0 s 12.0-14.7 [facility]intXxcafjdYEDHFFURFZ7867-15-12 21:20:00 Test Item Value Reference Range Interpretation Comments INR (test code = INR) 0.95 0.85-1.17 [facility][id number] 21:20:00 Test Item Value Reference Range Interpretation Comments PTT (test code = PTT) 25.3 s 22.9-35.8 [facility] CenterUuiwlywAYBNFCCJUI9733-60-58 21:20:00 Test Item Value Reference Range Interpretation Comments Ethanol Lvl (test code = Ethanol Lvl) no gt [facility] Hospit[id number] 21:20:00 Test Item Value Reference Range Interpretation Comments Etoh (%) (test code = Etoh (%)) no gt [facility] CenterQecrckqIZYJGWFNPS3659-00-19 21:15:00 Test Item Value Reference Range Interpretation Comments Estimated % Lysis Rapid 1.7 See_Comment [Au tomated message] The (test code = Estimated syste m which generated % Lysis Rapid) this result t ransmitted reference range : <=7.5. The reference r lowell was not used to int erpret this result as normal/abnormal . [facility] CenterNfdzjznFFPQPCBSAR7826-52-74 21:15:00 Test Item Value Reference Range Interpretation Comments Angle Rapid (test code = Angle 77 degrees 64-80 Rapid) [facility] CenterEvwvbonWOIRBTWSIC9828-28-27 21:15:00 Test Item Value Reference Range Interpretation Comments G-value Rapid (test code = G-value 12.2 5.0-11.6 Rapid) [facility] Cent[id number] 21:15:00 Test Item Value Reference Range Interpretation Comments Max Amplitude Rapid (test code = Max 71 mm 52-71 Amplitude Rapid) [facility] CenterFtyhkbzJSXSBCJMCV7024-66-87 21:15:00 Test Item Value Reference Range Interpretation Comments R-time Rapid (test code = R-time 0.7 min 0.4-0.7 Rapid) [facility] CenterZeugnofDLPTWDXQZO5682-44-35 21:15:00 Test Item Value Reference Range Interpretation Comments Split Point Rapid (test code = Split 0.5 min Point Rapid) [facility] CenterOlcjrawXLBGTVEKBC6191-73-07 21:15:00 Test Item Value Reference Range Interpretation Comments ACT (TEG) Rapid (test code = ACT (TEG) 113 s 86-118 Rapid) [facility] CenterXadrxwiLJTCEDRTBI4440-99-07 21:15:00 Test Item Value Reference Range Interpretation Comments K-time Rapid (test code = K-time 0.9 min 0.6-2.3 Rapid) [facility] CenterQcxrqqpIWNLEUISWV0853-08-53 21:15:00 Test Item Value Reference Range Interpretation Comments Estimated % Lysis Rapid 1.7 See_Comment [Au tomated message] The (test code = Estimated syste m which generated % Lysis Rapid) this result t ransmitted reference range : <=7.5. The reference r lowell was not used to int erpret this result as normal/abnormal . [facility] [id number] 21:15:00 Test Item Value Reference Range Interpretation Comments Angle Rapid (test code = Angle 77 degrees 64-80 Rapid) [facility] CenterEryjgpnOKIXONOCDT7451-41-48 21:15:00 Test Item Value Reference Range Interpretation Comments G-value Rapid (test code = G-value 12.2 5.0-11.6 Rapid) [facility] CenterVymswxqZIQCPZXGPM8836-03-28 21:15:00 Test Item Value Reference Range Interpretation Comments Max Amplitude Rapid (test code = Max 71 mm 52-71 Amplitude Rapid) [facility] CenterOvykqseZDPXVPXGYR1631-23-37 21:15:00 Test Item Value Reference Range Interpretation Comments R-time Rapid (test code = R-time 0.7 min 0.4-0.7 Rapid) [facility] [id number] 21:15:00 Test Item Value Reference Range Interpretation Comments Split Point Rapid (test code = Split 0.5 min Point Rapid) [facility] CenterOacsawqPAXPURNZUS9173-97-40 21:15:00 Test Item Value Reference Range Interpretation Comments ACT (TEG) Rapid (test code = ACT (TEG) 113 s 86-118 Rapid) [facility] Cent[id number] 21:15:00 Test Item Value Reference Range Interpretation Comments K-time Rapid (test code = K-time 0.9 min 0.6-2.3 Rapid) [facility] Notes Date/Time Note Provider Source 2021-03-[address] [facility] 16:33:00-00:00 [facility] ([facility]) EMERGENCY PROVIDER REPORT REPORT#:[id number] REPORT STATUS: Signed DATE:03/25/21 TIME: 1633 PATIENT: CESILIA MOTA UNIT #: [id number] ROOM: BED: AGE: 70 SEX: F PCP PHYS: Shahnaz Schneider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
[2023-04-27 00:55] LABS: Protime INR 0.93
[2023-04-27] MEDS ORDERED: ONDANSETRON 4 MG/2 ML VIAL ONE (00:56)
[2023-04-27] MEDS ORDERED: NA CHLORIDE 0.9% 1,000 ML ONE (00:56)
[2023-04-27] MEDS ORDERED: MORPHINE 4 MG/ML SYR ONE (00:56)
[2023-04-27 00:59] LABS: Absolute Lymphocytes (CBC) 0.8 K/uL (0.7-4.9); Hematocrit 40.2 % (36.0-45.0); Lymphocytes % 12.7 % (15.3-44.8); MCV 94.6 fL (80-100); MPV 6.9 fL (7.6-11.3); RBC Red Blood Cell Count 4.25 M/uL (3.86-4.86)
[2023-04-27 01:09] LABS: Albumin 3.7 g/dL (3.4-5.0); Bilirubin Direct 0.2 mg/dL (0-0.2); Bilirubin Indirect, Calculated 0.2 mg/dL (0.2-0.8); Bilirubin Total 0.4 mg/dL (0.2-1.0); Magnesium 2.9 mg/dL (1.6-2.4); Potassium 4.2 mEq/L (3.5-5.1); Protein, Total 7.4 g/dL (6.4-8.2); Troponin High Sensitivity 4.3 pg/mL (<58.9)
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
--- NOTE | 2023-04-27 04:36 | EDPHYS ---
Physician Documentation [facility] Name: Génesis Mota Age: 72 yrs Sex: Female : 1950 Arrival Date: 04/27/2023 Time: 00:11 Bed 18 Private MD: ED Physician Josh Calle HPI: 04/27 00:20 This 72 yrs old Female presents to ER via Unassigned with complaints of Chest sp4 Pain. 00:21 72-year-old female presents with EMS for acute onset of right-sided chest pain during sp4 fireworks starting today. Patient has received 3 24 mg of aspirin on the EMS unit. 02:19 72-year-old female with no significant past medical history except for GERD, presents sp4 with acute onset of right-sided chest pressure starting yesterday but also happening this morning and this was associated with dyspnea. Pain is 8 out of 10 on a scale patient denies any history of coronary artery disease, she takes Protonix at home for GERD. Patient reported the chest pain was nonexertional and worsened. . Historical: - Allergies: 00:27 PENICILLINS; sg5 - Home Meds: 00:27 pantoprazole oral [Active]; sg5 - Immunization history:: Adult Immunizations up to date, Client reports receiving the 2nd dose of the Covid vaccine, Last tetanus immunization: up to date Pneumococcal vaccine is up to date, Flu vaccine is up to date. - Social history:: Smoking status: Patient denies any tobacco usage or history of. - Family history:: not pertinent. ROS: 02:19 Constitutional: Negative for fever, chills, and weight loss, Eyes: Negative for injury, sp4 pain, redness, and discharge, ENT: Negative for injury, pain, and discharge, Neck: Negative for injury, pain, and swelling, Cardiovascular: Negative for palpitations, and edema, positive for chest pain and dyspnea Respiratory: Negative for cough, wheezing, and pleuritic chest pain, positive for dyspnea Abdomen/GI: Negative for abdominal pain, nausea, vomiting, diarrhea, and constipation, Back: Negative for injury and pain, : Negative for injury, bleeding, discharge, and swelling, MS/Extremity: Negative for injury and deformity, Skin: Negative for injury, rash, and discoloration, Neuro: Negative for headache, weakness, numbness, tingling, and seizure, Psych: Negative for depression, anxiety, Allergy/Immunology: Negative for hives, rash, and allergies Endocrine: Negative for neck swelling, polydipsia, polyuria, polyphagia, and weight changes Hematologic/Lymphatic: Negative for swollen nodes, abnormal bleeding, and unusual bruising Exam: 02:19 Constitutional: This is a well developed, well nourished patient who is awake, alert, sp4 and in no acute distress. Head/Face: Normocephalic, atraumatic. Eyes: Pupils equal round and reactive to light, extra-ocular motions intact. Lids and lashes normal. Conjunctiva and sclera are not injected. Cornea within normal limits. Periorbital areas with no swelling, redness, or edema. ENT: Nares patent. No nasal discharge, no septal abnormalities noted. Tympanic membranes are normal and external auditory canals are clear. Oropharynx with no redness, swelling, or masses, exudates, or evidence of obstruction, uvula midline. Mucous membranes moist. Neck: Trachea midline, no thyromegaly or masses palpated, and no cervical lymphadenopathy. Supple, full range of motion without nuchal rigidity, or vertebral point tenderness. Chest/axilla: Normal chest wall appearance and motion. Nontender with no deformity. No lesions are appreciated. Cardiovascular: Regular rate and rhythm with a normal S1 and S2. No gallops, murmurs, or rubs. Normal PMI, no JVD. No pulse deficits. Respiratory: Lungs have equal breath sounds bilaterally, clear to auscultation and percussion. No rales, rhonchi or wheezes noted. No increased work of breathing, no retractions or nasal flaring. Abdomen/GI: Soft, non-tender, with normal bowel sounds. No distension or tympany. No guarding or rebound. No evidence of tenderness throughout. Back: No spinal tenderness. No costovertebral tenderness. Skin: Warm, dry with normal turgor. Normal color with no rashes, no lesions, and no evidence of cellulitis. MS/ Extremity: Pulses equal, no cyanosis. Neurovascular intact. Full, normal range of motion. Neuro: Awake and alert, GCS 15, oriented to person, place, time, and situation. Cranial nerves II-XII grossly intact. Motor strength 5/5 in all extremities. Sensory grossly intact. Psych: Awake, alert, with orientation to person, place and time. Behavior, mood, and affect are within normal limits 02:19 ECG was reviewed by the Attending Physician. 0023 EKG time sinus bradycardia at the rate of 58 otherwise normal EKG Vital Signs: 00:23 BP 141 / 59; Pulse 57; Resp 16; Temp 97.9; Pulse Ox 100% on R/A; Weight 59.87 kg; sg5 Height 5 ft. 2 in. ; Pain 6/10; 01:10 BP 110 / 67; Pulse 50; Resp 16; Pulse Ox 98% on R/A; Pain 5/10; sg5 02:06 BP 104 / 50; Pulse 64; Resp 16; Pulse Ox 100% on R/A; Pain 3/10; sg5 03:07 BP 102 / 52; Pulse 58; Resp 16; Pulse Ox 100% on R/A; sg5 04:28 BP 98 / 56; Pulse 57; Resp 16; Pulse Ox 97% on R/A; sg5 00:23 Body Mass Index 24.14 (59.87 kg, 157.48 cm) sg5 00:23 Pain Scale: Adult sg5 01:10 Pain Scale: Adult sg5 02:06 Pain Scale: Adult sg5 MDM: 00:24 Patient medically screened. sp4 02:49 The patient was given aspirin in the Emergency Department. ED course: EXAM DESCRIPTION: sp4 Angio Aorta For Dissection 04/27/2023 2:36 AM CDT CLINICAL HISTORY: 72 years, Female, right sided chest and back pain COMPARISON: None. PROCEDURE: Multiple transaxial tomograms of the thoracic and abdominal aorta from the lung apex to the ischial tuberosities utilizing 3 mm slice thickness at 3 mm interval reconstruction after the administration of large bolus of IV contrast for complete opacification of the thoracic, abdominal aorta and iliac arteries. 2-D and 3-D multiplanar reformats, volume rendering technique and maximum intensity projection images were generated and reviewed. This exam was performed according to our departmental dose-optimization protocol, which includes automated exposure control, adjustment of the mA and/or kV according to patient size and/or use of iterative reconstruction technique. FINDINGS: Thoracic aorta: The thoracic aorta demonstrate to be within normal limits. There is no evidence for aneurysm/or dissection. There is normal branching pattern of the great vessels with no evidence for significant stenosis/or occlusion along the proximal vessels. Abdominal aorta: The abdominal aorta demonstrate to be within normal limits. There is very minimal atheromatous plaque formation infrarenal portion. There is no evidence for aneurysm and/or dissection. Bilateral iliac arteries demonstrate to be patent with no evidence for significant stenosis. Visceral branches demonstrate to be unremarkable. No evidence for significant stenosis/or occlusion. There are single bilateral renal arteries with no evidence for significant stenosis. Chest: The lung parenchyma demonstrate to be clear. No significant pulmonary nodules and/or masses are identified. Dependent atelectatic changes lung bases with bilateral posterior diaphragmatic hernia/Bochdalek type hernias. The trachea mainstem bronchus demonstrate to be unremarkable. There is no pleural/or pericardial effusions. The heart is normal in size. The central portions of the pulmonary arteries demonstrate normal opacification with no evidence for significant filling defects that will suggest pulmonary embolus. There is no significant mediastinal and/or hilar lymphadenopathy. The axillary regions demonstrate to be clear. The bone windows demonstrate no significant skeletal lesions. Abdomen and pelvis: The liver, spleen, adrenal glands, pancreas demonstrate to be unremarkable. The gallbladder demonstrated presence of a slight layering density structures corresponding to most likely cholelithiasis. No evidence for significant intrahepatic biliary duct dilatation/or significant filling defects The kidneys demonstrate normal uptake of contrast media. There is no evidence for nephrolithiasis and/or hydronephrosis. Grossly the unopacified stomach, small bowel and large bowel demonstrate to be within normal limits. No evidence for bowel dilatation/or free air. The appendix is normal. There is mild fecal stasis within the large bowel. The urinary bladder demonstrate to be within normal limits. The uterus is absent. There are no adnexal masses. There is no evidence for ascites. No retroperitoneal lymphadenopathy. The bone windows demonstrate mild bony osteopenia. Superior plate compression deformity at L1 and L3. IMPRESSION: No evidence for significant filling defects that will suggest significant pulmonary embolus. No evidence for thoracic or abdominal aortic aneurysm and/or dissection. Superior plate compression deformity at L1 and L3. Cholelithiasis. Mild fecal stasis within the large bowel. 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 . 03:16 Differential diagnosis: acute pericarditis, anxiety, coronary artery disease chest wall sp4 pain, congestive heart failure cholecystitis, esophagitis. HEART Score: History: Moderately Suspicious (1), ECG: Normal (0), Age: > or = 65 years (2), Risk Factors: No Risk Factors Known (0), Troponin: < or = 1 x Normal Limit (0), Total Score = 3. Data reviewed: vital signs, nurses notes, old medical records, lab test result(s), cardiac enzymes, CBC, electrolytes, hepatic panel, EKG, radiologic studies, CT scan. ED course: IMPRESSION: No evidence for significant filling defects that will suggest significant pulmonary embolus. No evidence for thoracic or abdominal aortic aneurysm and/or dissection. Superior plate compression deformity at L1 and L3. Cholelithiasis. Mild fecal stasis within the large bowel. 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 . 04:34 ED course: Repeat troponin is negative today . . ED course: Patient is stable for 4 discharge home with referral to local registered route associate for work-up in the clinic. Will advise follow-up with cardiology in the next 7 to 14 days.. ED course: We will also advise aspirin 81 mg daily. . 04:51 ED course: Mild elevation of liver enzymes, - we will advise patient to see her primary sp4 MD in 2 to 4 weeks for repeat liver enzyme check in the office. 04/27 00:21 Order name: Basic Metabolic Panel; Complete Time: : [facility] 04/27 00:21 Order name: CBC with Diff; Complete Time: [facility] 04/27 00:21 Order name: LFT's; Complete Time: [facility] 04/27 00:21 Order name: Magnesium; Complete Time: [facility] 04/27 00:21 Order name: NT PRO-BNP; Complete Time: [facility] 04/27 00:21 Order name: PT-INR; Complete Time: [facility] 04/27 00:21 Order name: Troponin HS; Complete Time: : [facility] 04/27 03:14 Order name: Troponin High Sensitivity; Complete Time: 04:33 [facility] 04/27 00:21 Order name: XRAY Chest (1 view) [facility] 04/27 00:31 Order name: CT Aorta for Dissection [facility] 04/27 00:21 Order name: EKG; Complete Time: 00:22 [facility] 04/27 00:21 Order name: Cardiac monitoring; Complete Time: 00:36 [facility] 04/27 00:21 Order name: EKG - Nurse/Tech; Complete Time: 00:36 sp4 07 00:21 Order name: IV Saline Lock; Complete Time: 00:36 sp4 04/27 00:21 Order name: Labs collected and sent; Complete Time: 00:36 sp4 04/27 00:21 Order name: O2 Per Protocol; Complete Time: 00:36 sp4 04/27 00:21 Order name: O2 Sat Monitoring; Complete Time: 00:36 sp4 EC:19 Rate is 58 beats/min. Rhythm is regular, Sinus bradycardia. QRS [place] is Normal. [place] sp4 interval is normal. QRS interval is normal. QT interval is normal. T waves are Normal. No ST changes noted. Clinical impression: No evidence of ischemia. Interpreted by me. Administered Medications: 00:57 Drug: morphine IVP or IV 4 mg Route: IVP; Infused Over: 4 mins; Site: left antecubital; sg5 00:57 Drug: Ondansetron IVP 4 mg Route: IVP; Site: left antecubital; sg5 00:57 Drug: NS 0.9% IV 1000 ml Route: IV; Rate: 125 ml/hr; Site: left antecubital; sg5 Disposition Summary: 04/27/23 04:36 Discharge Ordered Location: Home sp4 Problem: new sp4 Symptoms: have improved sp4 Condition: Stable sp4 Diagnosis - Chest pain, unspecified sp4 - Recurrent chest pain, Dyspnea sp4 Followup: sp4 - With: Arben Cordoba MD - When: 10 - 14 days - Reason: Recheck today's complaints Discharge Instructions: - Discharge Summary Sheet sp4 - Nonspecific Chest Pain, Adult, [id number] sp4 Forms: - [email or web address] sp4 Signatures: Dispatcher [employer] Josh Faustin MD MD sp4 Ernestina Palma RN RN sg5
[2023-04-27 05:31] VITALS: BP 102/52; O2SAT 100
--- NOTE | 2023-04-27 12:13 | EKG ---
Test Date: 2023-04-27 Test Time: 00:23:54 Transport Operations Inspector: BLAZE MEASUREMENT RESULTS: Intervals: Rate: 58 DC: 134 QRSD: 74 QT: 418 QTc: 410 Andrews: P: 53 DC: 134 QRS: 60 T: 58 INTERPRETIVE STATEMENTS: Sinus bradycardia Otherwise normal ECG Compared to ECG 04/16/2020 15:08:55 No significant changes Electronically Signed On 04-27-23 12:12:03 CDT by Arben Cordoba
--- NOTE | 2023-04-27 19:12 | RAD REPORT ---
EXAM DESCRIPTION: Angio Aorta For Dissection 04/27/2023 2:36 AM CDT CLINICAL HISTORY: 72 years, Female, right sided chest and back pain COMPARISON: None. TECHNIQUE: Multiple transaxial tomograms of the thoracic and abdominal aorta from the lung apex to t he ischial tuberosities utilizing 3 mm slice thickness at 3 mm interval reconstruction after the admi nistration of large bolus of IV contrast for complete opacification of the thoracic, abdominal aorta and iliac arteries. 2-D and 3-D multiplanar reformats, volume rendering technique and maximum intensity projection images were generated and reviewed. This exam was performed according to our departmental dose-optimization protocol, which includes auto mated exposure control, adjustment of the mA and/or kV according to patient size and/or use of iterat concha reconstruction technique. FINDINGS: Thoracic aorta: The thoracic aorta demonstrate to be within normal limits. There is no evidence for aneurysm/or disse ction. There is normal branching pattern of the great vessels with no evidence for significant stenos is/or occlusion along the proximal vessels. Abdominal aorta: The abdominal aorta demonstrate to be within normal limits. There is very minimal atheromatous plaque formation infrarenal portion. There is no evidence for aneurysm and/or dissection. Bilateral iliac arteries demonstrate to be patent with no evidence for significant stenosis. Visceral branches demonstrate to be unremarkable. No evidence for significant stenosis/or occlusion. There are single bilateral renal arteries with no evidence for significant stenosis. Chest: The lung parenchyma demonstrate to be clear. No significant pulmonary nodules and/or masses are ident ified. Dependent atelectatic changes lung bases with bilateral posterior diaphragmatic hernia/Bochdal ek type hernias. The trachea mainstem bronchus demonstrate to be unremarkable. There is no pleural/or pericardial effu sions. The heart is normal in size. The central portions of the pulmonary arteries demonstrate normal opacif ication with no evidence for significant filling defects that will suggest pulmonary embolus. There is no significant mediastinal and/or hilar lymphadenopathy. The axillary regions demonstrate to be clear. The bone windows demonstrate no significant skeletal lesions. Abdomen and pelvis: The liver, spleen, adrenal glands, pancreas demonstrate to be unremarkable. The gallbladder demonstra flor presence of a slight layering density structures corresponding to most likely cholelithiasis. No evidence for significant intrahepatic biliary duct dilatation/or significant filling defects The kidneys demonstrate normal uptake of contrast media. There is no evidence for nephrolithiasis and /or hydronephrosis. Grossly the unopacified stomach, small bowel and large bowel demonstrate to be within normal limits. No evidence for bowel dilatation/or free air. The appendix is normal. There is mild fecal stasis with in the large bowel. The urinary bladder demonstrate to be within normal limits. The uterus is absent. There are no adnexa l masses. There is no evidence for ascites. No retroperitoneal lymphadenopathy. The bone windows demonstrate mild bony osteopenia. Superior plate compression deformity at L1 and L3. IMPRESSION: No evidence for significant filling defects that will suggest significant pulmonary embo letty. No evidence for thoracic or abdominal aortic aneurysm and/or dissection. Superior plate compression deformity at L1 and L3. Cholelithiasis. Mild fecal stasis within the large bowel. 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 Electronically signed by: Julio Cesar Mccann MD 04/27/2023 2:41 AM CDT Due to temporary technical issues with the PACS/Fluency reporting system, reports are being signed by the in house radiologists without review as a courtesy to insure prompt reporting. The interpreting radiologist is fully responsible for the content of the report.
--- NOTE | 2023-04-28 06:37 | RAD REPORT ---
EXAM DESCRIPTION: Chest Single View 04/27/2023 1:42 AM CDT CLINICAL HISTORY: 72 years, Female, CHEST PAIN COMPARISON: None FINDINGS: Single view of the chest was obtained portable. No prior films are available for compariso n. External EKG leads within the [id number] limits diagnosis. The cardiomediastinal silhouette dem onstrate to be unremarkable. The heart is not enlarged. The thoracic aorta is unremarkable. The pulmo nary vasculature is normal distribution. Costophrenic angles are sharp. No areas of consolidation o r masses are seen. The rest of the soft tissue and bony structures demonstrate to be unremarkable. IMPRESSION: No acute cardiopulmonary disease seen. Electronically signed by: Julio Cesar Mccann MD 04/27/2023 1:43 AM CDT Due to temporary technical issues with the PACS/Fluency reporting system, reports are being signed by the in house radiologists without review as a courtesy to insure prompt reporting. The interpreting radiologist is fully responsible for the content of the report.
== END 2023-04-27 04:52 | disposition home or self-care (01) ==
LOC: ER 00:11
DX: R07.89 Other chest pain (principal); R06.00 Dyspnea, unspecified; Z88.0 Allergy status to penicillin
CPT/HCPCS: 93005; 85025; 80048; 36415; 83735; 85610; 80076; 84484 ×2; 83880; 71275; 74175; 71045; 96375; 96374; 99285; Q9967; J2405; J7030